=== PATIENT | female | born 2000 | race Caucasian/White ===

== ENCOUNTER 2024-02-14 18:07 | Observation (INO) | payer MEDICARE, MEDICAID, SELFPAY ==
[2024-02-14 18:14] VITALS: BP 154/98; PULSE 78; RESP 18; TEMP 37; O2SAT 95; BMI 25.7
[2024-02-14 18:20] VITALS: BP 154/98; PULSE 80; RESP 18; TEMP 37; O2SAT 95
--- NOTE | 2024-02-14 18:58 | CT_ITS ---
PROCEDURE INFORMATION: Exam: CT Abdomen And Pelvis With Contrast Exam date and time: 02/14/2024 9:52 PM Age: 23 years old Clinical indication: Other: Moderate rlq pain and vmoting 24h TECHNIQUE: Imaging protocol: Computed tomography of the abdomen and pelvis with contrast. Radiation optimization: All CT scans at this facility use at least one of these dose optimization techniques: automated exposure control; mA and/or kV adjustment per patient size (includes targeted exams where dose is matched to clinical indication); or iterative reconstruction. Contrast material: ISOVUE; Contrast volume: 75 ml; Contrast route: IV; COMPARISON: No relevant prior studies available. FINDINGS: Lungs: The visualized lung bases demonstrate no focal infiltrates. Liver: Severe diffuse hepatic steatosis is identified. Gallbladder and biliary ducts: There has been a cholecystectomy. Pancreas: Normal. No ductal dilation. Spleen: Normal. No splenomegaly. Adrenal glands: The adrenal glands appear within normal limits. Kidneys and ureters: The kidneys are normal. Stomach and bowel: Unremarkable. No obstruction. No mucosal thickening. Appendix: The appendix is distended with periappendiceal inflammation consistent with acute appendicitis. No perforation or abscess. Transverse diameter approaches 10 mm. Intraperitoneal space: Unremarkable. No free air. No significant fluid collection. Vasculature: Unremarkable. No abdominal aortic aneurysm. Lymph nodes: Reactive lymph nodes within the right lower quadrant mesentery. Urinary bladder: The bladder appears within normal limits. No wall thickening. Reproductive: There is an IUD in place. Bones/joints: Unremarkable. No acute fracture. Soft tissues: The visualize subcutaneous soft tissues and abdominal wall and flank wall appear unremarkable. IMPRESSION: 1. Acute appendicitis. 2. Severe diffuse hepatic steatosis is identified. 3. Reactive lymph nodes within the right lower quadrant mesentery. THIS REPORT CONTAINS FINDINGS THAT MAY BE CRITICAL TO PATIENT CARE. The findings were verbally communicated via telephone conference at 10:38 PM EST on 02/14/2024 with Jonathan Lomax. The findings were acknowledged and understood.
[2024-02-14 19:05] LABS: Microscopic, Urine URINE MICROSCOPIC (MICROSCOPIC)
[2024-02-14 19:10] LABS: Basophils # 0.1 K/mm3 (0-0.2); Basophils % 0.7 % (0.1-2.0); Eosinophils # 0.2 K/mm3 (0.0-0.4); Eosinophils % 1.8 % (0.1-12.0); Hematocrit 38.9 % (37.0-47.0); Hemoglobin 12.4 g/dL (12.2-16.2); Lymphocytes # 2.3 K/mm3 (0.7-4.5); Lymphocytes % 21.5 % (10-50); Mean Corpuscular HGB Conc 31.9 g/dL (31.8-35.4); Mean Corpuscular Hemoglobin 26.4 pg (27.0-31.2); Mean Corpuscular Volume 82.9 fl (81-99); Mean Platelet Volume 9.8 fl (7.4-10.4); Monocytes % 9.6 % (1.7-9.3); Neutrophils # 7.2 K/mm3 (1.8-7.8); Neutrophils % 65.9 % (37.0-80.0); Platelet Count 430 K/mm3 (142-424); Red Blood Count 4.69 M/mm3 (4.20-5.40); Red Cell Distribution Width 14.5 % (11.5-17.5); White Blood Count 10.9 K/mm3 (4.8-10.8)
[2024-02-14 19:23] LABS: Appearance,Urine CLOUDY (Clear); Blood, Urine 1+ (Negative); Color,Urine YELLOW (Yellow); Glucose,Urine (UA) Negative (Negative); Ketones,Urine TRACE (Negative); Leukocyte Esterase,Urine TRACE (Negative); Nitrate,Urine Negative (Negative); Protein,Urine Negative (Negative); Specific Gravity, Urine >= 1.030 (1.005-1.030); Urobilinogen,Urine 0.2 EU/dl (0.2)
[2024-02-14 19:37] LABS: Albumin Level 4.5 g/dl (3.5-5.0); Bilirubin,Urine 1+ (Negative); Chloride 106 mmol/L (98-107); Sodium 137 mmol/L (136-145)
[2024-02-14 19:38] LABS: Potassium 3.9 mmoL/L (3.5-5.1)
--- NOTE | 2024-02-14 19:38 | ED_ITS ---
Discharge Plan Disposition Chief Complaint: Abdominal Pain Referrals Follow up/Referrals: Fabrice Angel APRN [Primary Care Provider] - See instructions Clinical Impressions Clinical Impression: Acute appendicitis, Acute appendicitis with localized peritonitis Instructions Patient Instructions: DI for Acute Abdominal Pain Print Language Print Language: Georgian Discharge ED Provider: Jonathan Lomax General Adult HPI General Chief complaint: Abdominal Pain Stated complaint: abdominal pain Time Seen by Provider: 02/14/24 18:32 Mode of Arrival: Ambulatory Source of Information: Patient Limitations: No Limitations Description of Symptoms (Recalled from ER Triage Doc. by RN): Pt presents from [facility] via [facility] for evaluation of RLQ abd pain x 24 hours. Pt also has N/V/D History of Present Illness HPI narrative: Please note that above description of symptoms, in this electronic medical record under categorization of recalled from ER triage doctor by RN are reflective of an initial nursing assessment, however, is not reflective of my full history and physical exam that was personally taken and clarified. Consequentially, this preceding description of symptoms, which may include the patient's categorized chief complaint in the EMR, do not reflect my personal clinical impression, and the ultimate description of history of present illness and patient stated complaints should be deferred to this section of the note. Unless stated otherwise or congruent with this section of the note, additional signs, symptoms, or incongruence should be interpreted as inaccurate with my clinical impression. Related Data Allergies Allergy/AdvReac Type Severity Reaction Status Date / Time No Known Allergies Allergy Verified 02/14/24 18:43 [facility] Disclaimer: The information contained in this section may have been updated after the patient was seen, as this information can be updated by other users. Social History Smoking Status: Never smoker alcohol intake: never current occupational status: unemployed Travel in the last 8 weeks: None ROS Obtained: Yes All systems reviewed & no additional complaints except as documented Physical Exam General General appearance: alert Head Head exam: atraumatic and normocephalic Eye Eye exam: Present normal appearance, PERRL and EOMI Neck Neck exam: Present normal inspection, full ROM and trachea midline Respiratory Respiratory exam: Absent respiratory distress, wheezes, stridor, accessory muscle use or prolonged expiratory phase Cardiovascular Cardiovascular exam: Present other (Pulses equal symmetric in upper and lower extremities) Abdominal Exam Abdominal exam: Present soft, tenderness and Rovsing's sign; Absent distention, guarding, rebound, rigidity, Rizvi's sign or pulsatile mass Abdominal tenderness: Present diffuse and mild Extremities Exam Extremities exam: Absent edema Back Exam Back exam: Absent CVA tenderness (R) or CVA tenderness (L) Neurological Exam Neurological exam: Present alert, oriented X3 and CN II-XII intact; Absent motor sensory deficit Skin Skin exam: Present warm and dry; Absent diaphoresis or erythema Medical Decision Making Medical Records Medical records reviewed: Yes I reviewed the patient's medical records. Screening: Per USPSTF and CDC recommendations, given the prevalence of disease in our region, it is our hospital?s policy to screen for HIV and viral Hepatitis for all patients aged 18 and over and those with ongoing risk factors. [place] Inquiry Pt receiving controlled substance: No [place] was queried for this patient: No Vital Signs: 02/14/24 18:14 02/14/24 18:20 02/14/24 22:31 Temperature 98.6 F 98.6 F Temperature Source Oral Oral Pulse Rate 80 91 H Pulse Rate [Right] 78 Respiratory Rate 18 18 Blood Pressure 154/98 H Blood Pressure [Right Arm] 154/98 H Blood Pressure Mean [Right Arm] 116 Blood Pressure Source Automatic Cuff Blood Pressure Source [Right Arm] Automatic Cuff 02 Sat by Pulse Oximetry 95 95 100 Oxygen Delivery Method Room Air Room Air Lab Data Lab Results 02/14/24 18:16: WBC 10.9 H, RBC 4.69, Hgb 12.4, Hct 38.9, MCV 82.9, MCH 26.4 L, MCHC 31.9, RDW 14.5, Plt Count 430 H, MPV 9.8, Neut % (Auto) 65.9, Lymph % (Auto) 21.5, Lea % (Auto) 9.6 H, Eos % (Auto) 1.8, Baso % (Auto) 0.7, Neut # (Auto) 7.2, Lymph # (Auto) 2.3, Lea # (Auto) 1.0, Eos # (Auto) 0.2, Baso # (Auto) 0.1, Sodium 137, Potassium 3.9, Chloride 106, Carbon Dioxide 22, Anion Gap 12.9, BUN 8, Creatinine 0.90, Estimated Creat Clear 104, Estimated GFR 78, Est GFR ( Amer) 94, Glucose 112 H, Calcium 10.0, Total Bilirubin 0.5, AST 49 H, ALT 25, Alkaline Phosphatase 101, Total Protein 7.7, Albumin 4.5, Globulin 3.2, Albumin/Globulin Ratio 1.4, Lipase 74, HCG, Quant < 2, Urine Color Yellow, Urine Appearance Cloudy, Urine pH 6.0, Ur Specific [place] >= 1.030, Urine Protein Negative, Urine Glucose (UA) Negative, Urine Ketones Trace, Urine Blood 1+ A, Urine Nitrate Negative, Urine Bilirubin 1+ A, Urine Urobilinogen 0.2, Ur Leukocyte Esterase Trace, Urine RBC None, Urine WBC 5-10, Ur Squamous Epith Cells 20-50, Calcium Oxalate Crystal Trace, Urine Bacteria 3+ 02/14/24 20:16: Lactate 0.9 02/14/24 18:16 02/14/24 18:16 Orders (Tests/Meds): ED MEDICATIONS Discontinued Medications Generic Name Dose Route Start Last Admin Trade Name Freq PRN Reason Stop Dose Admin Cefdinir 300 mg 02/14/24 20:35 02/14/24 20:38 Cefdinir 300mg Capsule PO 02/14/24 20:36 300 mg ONCE ONE Administration Sodium Chloride 1,000 mls @ 999 mls/hr 02/14/24 18:58 02/14/24 19:49 Sod Chlor 0.9% 1000ml Bag IV 02/14/24 19:58 999 mls/hr .Q1H1M ONE Administration Ampicillin Sodium/Sulbactam 100 mls @ 200 mls/hr 02/14/24 22:12 02/14/24 22:16 Sodium 3 gm/ Sodium Chloride IV 02/14/24 22:13 200 mls/hr ONCE ONE Administration Iopamidol 75 ml 02/14/24 21:51 02/14/24 21:52 Iopamidol-370 (76%);100ml Bottle IV 02/14/24 21:52 75 ml ONCE ONE Administration Ketorolac Tromethamine 15 mg 02/14/24 18:58 02/14/24 19:48 Ketorolac 30mg/Ml Vial IV 02/14/24 18:59 15 mg ONCE ONE Administration Ondansetron HCl 4 mg 02/14/24 18:58 02/14/24 19:49 Ondansetron 4mg/2ml Vial IV 02/14/24 18:59 4 mg ONCE ONE Administration Sodium Chloride 10 ml 02/14/24 21:51 02/14/24 21:52 Sodium Chloride 0.9% 10ml Syr (Rad Only) IV 02/14/24 21:52 10 ml ONCE ONE Administration ORDERS Category Date Time Status CT abdomen pelvis w con Stat Cat Scan 02/14/24 18:58 Taken Complete Blood Count Auto Diff Stat Lab 02/14/24 18:16 Completed Comprehensive Metabolic Panel Stat Lab 02/14/24 18:16 Completed HCG,Quantitative Stat Lab 02/14/24 18:16 Completed Lactic Acid Stat Lab 02/14/24 20:16 Completed Lipase Stat Lab 02/14/24 18:16 Completed Urinalysis and Microscopic Stat Lab 02/14/24 18:16 Completed Urine Culture Stat Micro 02/14/24 18:16 Received Medical Decision Narrative: 23-year-old female presenting with abdominal pain. She has a history of IBS, GERD, IUD in place. Patient states abdominal pain started last night, 02/12. Since that time she has had nonbloody, nonbilious vomiting and nonbloody diarrhea. Multiple episodes. No fevers or chills. Pain is moderate to severe in intensity, right lower quadrant, does not radiate. Has not taken any meds for it. She lives at a assisted living facility and does not have a prescription for it, so not allowed to take anything.. History was obtained via conversation with patient. On arrival, patient hemodynamically stable, alert, oriented x4, appropriate, GCS 15, moving all extremities spontaneously, pupils equal and reactive to light. Full physical exam performed and significant for obese female no acute distress. Speaking in full sentences. Abdomen is soft, nondistended, but appears to be moderately tender. It is diffuse. No evidence of peritonitis. Tenderness in her right lower quadrant when pushing on her left lower quadrant. No flank tenderness. No overlying skin changes or outward signs of abnormality. Differential includes PUD, gastritis, enteritis, gastroenteritis, pancreatitis, SBO, colitis, diverticulitis, nephrolithiasis, UTI, , cholecystitis, choledocholithiasis, appendicitis, hepatitis, torsion, aortic pathology, mesenteric ischemia among others. Patient was given Toradol and Zofran, fluids for symptomatic management and correction of underlying abnormalities. Workup independently interpreted and significant for white count with neutrophilia. Chemistry nonactionable with negative lactate, negative lipase and negative hCG. On independent interpretation of imaging, patient has uncomplicated 13 mm appendicitis with fat stranding. No appendicolith, perforation, abscess or other complication. See radiology read for full review of final results. [facility] Recommended admission, antibiotics, surgery tomorrow and being n.p.o. at midnight. Hospital medicine was contacted and case was discussed at length, graciously excepted admission. On reevaluation, patient having no pain at this time. Because patient high risk for clinical decompensation, deemed appropriate for inpatient admission. Results were relayed to patient who voiced understanding and patient was agreeable to inpatient admission and management. Patient was admitted to the hospital for further definitive management. Tier Lift Operator disclaimer Much of this encounter note is an electronic podopediatrician spoken language to printed text. Electronic podopediatrician of the spoken language may permit errors. Although I have reviewed the note, some errors may still exist. Critical Care Critical Care Time Critical Care Time: Yes (gi, abdominal) Attestation: On 02/14/24, the high probability of a clinically significant, sudden or life threatening deterioration of the following system(s) required my full and direct attention, intervention and personal management. The time I documented below is in addition to time spent performing reported procedures but includes the following listed in this critical care notation. Total Time Total Critical Care Time: 35
[2024-02-14 19:40] LABS: Alanine Aminotransferase 25 U/L (12-78); Albumin/Globulin Ratio 1.4 (1.1-1.8); Alkaline Phosphatase 101 U/L (38-126); Anion Gap 12.9 mEq/L (5-15); Aspartate Amino Transferase 49 U/L (14-36); Bilirubin,Total 0.5 mg/dl (0.2-1.3); Blood Urea Nitrogen 8 mg/dl (7-17); Carbon Dioxide 22 mmol/L (22.0-30.0); Creatinine Clearance Estimated 104 mL/min (50-200); Estimated Glomerular Filt Rate 78 ml/min (>60); GFR (African American) 94 ML/MIN (>60); Globulin 3.2 g/dL (1.3-3.2); Lipase 74 U/L (23-300); Total Protein,Serum 7.7 g/dl (6.3-8.2)
[2024-02-14 19:41] LABS: Glucose 112 mg/dl (74-100)
[2024-02-14] MEDS: KETOROLAC 30MG/ML VIAL 15 MG IV ×2 (19:48→23:44)
[2024-02-14] MEDS: 0.9 % SODIUM CHLORIDE 1000ML 1,000 ML 999 ML IV (19:49)
[2024-02-14] MEDS: ONDANSETRON 4MG/2ML VIAL 4 MG IV ×2 (19:49→23:45)
[2024-02-14 20:31] LABS: Bacteria,Urine 3+ /lpf; Calcium Oxalate Crystals,Urine Trace /lpf; Squamous Epithelial Cell,Urine 20-50 #/hpf (0-5)
[2024-02-14] MEDS: CEFDINIR 300MG CAPSULE 300 MG PO (20:38)
[2024-02-14 20:42] LABS: Lactic Acid 0.9 mmol/L (0.7-2.1)
[2024-02-14 21:20] LABS: HCG,Quantitative < 2 mIU/ml (0-5.42)
[2024-02-14] MEDS: IOPAMIDOL-370 (76%);100ML BOTTLE 75 ML IV (21:52)
[2024-02-14] MEDS: SODIUM CHLORIDE 0.9% 10ML SYR (RAD ONLY) 10 ML IV (21:52)
[2024-02-14] MEDS: AMPICILLIN/SULBACTAM 3 GM in 0.9 % SODIUM CHLORIDE 100 ML IV (22:16)
[2024-02-14 22:31] VITALS: PULSE 91; O2SAT 100
[2024-02-14 22:52] VITALS: BP 124/88; PULSE 75; RESP 18; TEMP 36.6; O2SAT 96
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
--- NOTE | 2024-02-14 23:17 | PC.NURSE ---
Patient arrived to floor via wheelchair from ED at 23:12.
[2024-02-14 23:18] VITALS: BP 124/88; PULSE 90; RESP 16; O2SAT 100
[2024-02-14] MEDS: 0.9 % SODIUM CHLORIDE 1000ML 1,000 ML 125 ML IV (23:44)
[2024-02-14] MEDS: FAMOTIDINE 20MG/2ML VIAL 20 MG IV (23:44)
[2024-02-15] VITALS (21 sets, daily range): BP systolic 109–166; BP diastolic 53–105; PULSE 63–114; RESP 16–20; TEMP 36.3–43; O2SAT 91–100; BMI 45.8
[2024-02-15] MEDS: PROMETHAZINE HCL 25MG/ML 1ML VIAL 12.5 MG IV ×2 (02:00→15:07)
--- NOTE | 2024-02-15 05:33 | PC.NURSE ---
Pt A&OX4 and has tolerated room air. She has complained of abdominal pain and nausea and was medicated per APR. She has ambulated around the room independently. Plan for surgery today. Has remained npo since midnight. No complaints at this time, call light within reach.
[2024-02-15] MEDS: KETOROLAC 30MG/ML VIAL 15 MG IV (06:09)
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
[2024-02-15 06:57] LABS: Basophils # 0.1 K/mm3 (0-0.2); Basophils % 0.7 % (0.1-2.0); Eosinophils # 0.3 K/mm3 (0.0-0.4); Eosinophils % 3.4 % (0.1-12.0); Hematocrit 32.8 % (37.0-47.0); Lymphocytes # 2.8 K/mm3 (0.7-4.5); Lymphocytes % 32.4 % (10-50); Mean Corpuscular Hemoglobin 26.9 pg (27.0-31.2); Mean Corpuscular Volume 83.9 fl (81-99); Mean Platelet Volume 9.7 fl (7.4-10.4); Monocytes # 0.9 K/mm3 (0.1-1.0); Monocytes % 10.3 % (1.7-9.3); Neutrophils # 4.5 K/mm3 (1.8-7.8); Neutrophils % 52.5 % (37.0-80.0); Platelet Count 312 K/mm3 (142-424); Red Blood Count 3.91 M/mm3 (4.20-5.40); Red Cell Distribution Width 14.6 % (11.5-17.5); White Blood Count 8.5 K/mm3 (4.8-10.8)
[2024-02-15 07:16] LABS: Albumin Level 3.5 g/dl (3.5-5.0); Chloride 109 mmol/L (98-107); Potassium 3.5 mmoL/L (3.5-5.1); Sodium 137 mmol/L (136-145)
[2024-02-15 07:19] LABS: Alanine Aminotransferase 18 U/L (12-78); Albumin/Globulin Ratio 1.3 (1.1-1.8); Alkaline Phosphatase 81 U/L (38-126); Anion Gap 9.5 mEq/L (5-15); Aspartate Amino Transferase 40 U/L (14-36); Bilirubin,Total 0.4 mg/dl (0.2-1.3); Blood Urea Nitrogen 6 mg/dl (7-17); Calcium 8.6 mg/dl (8.4-10.2); Carbon Dioxide 22 mmol/L (22.0-30.0); Creatinine Clearance Estimated 108 mL/min (50-200); Estimated Glomerular Filt Rate 104 ml/min (>60); GFR (African American) 125 ML/MIN (>60); Globulin 2.6 g/dL (1.3-3.2); Glucose 82 mg/dl (74-100); Total Protein,Serum 6.1 g/dl (6.3-8.2)
[2024-02-15 07:22] LABS: Hemoglobin 10.5 g/dL (12.2-16.2)
[2024-02-15] MEDS: LACTATED RINGERS 1000ML 1,000 ML 25 ML IV (07:59)
[2024-02-15] MEDS: CEFTRIAXONE SODIUM 2 GM in 0.9 % SODIUM CHLORIDE 100 ML IV (08:20)
[2024-02-15] MEDS: METRONIDAZ/SOD CHL 500 MG/100 ML PIGGYBACK 100 MG IV (08:20)
--- NOTE | 2024-02-15 08:26 | P.PNANES_ITS ---
[facility] Disclaimer: The information contained in this section may have been updated after the patient was seen, as this information can be updated by other users. Medical History (Updated 02/15/24 @ 06:45 by Segun Alvarado MD) Autism Morbid obesity Prediabetes Sleep apnea GERD (gastroesophageal reflux disease) Irritable bowel syndrome PTSD (post-traumatic stress disorder) Social History (Updated 02/14/24 @ 23:12 by Hammad Salomon APRN) Smoking Status: Never smoker alcohol intake: never substance use type: other details: Very rarely current occupational status: unemployed Travel in the last 8 weeks: None marital status: single physical activity: none Have you lived/traveled outside US in past 30 days?: No Contact w/someone who lives/traveled outside US past 30 days?: No Exposure to someone with infectious disease in past 14 days?: No Do you have a fever (greater than 100.4 F or 38 C)?: No Have you tested positive for COVID-19: No Exposed to someone with COVID-19 in past 14 days?: No Do you have a sore throat?: No Do you have a cough?: No Do you have any weakness?: No Do you have any diarrhea?: No Are you experiencing any unusual bleeding?: No Do you have any muscle aches/pain?: No Do you have any abdominal pain?: Yes Are you experiencing loss of taste or smell?: No [facility] Anesthesia Checklist Patient Identification Patient Identification: Arm Band Structural Data Admitted From: Inpatient Planned Operative Procedure/s: Laparoscopic Appendectomy Verified Documents: Surgical Consent and History and Physical NPO Status Verified Time NPO: 00:00 Additional verifications Anesthesia Reactions: No Airway Assessment Mallampati Score:: Class II C-Spine Mobility Assessed: Yes TMJ Mobility Assessed: Yes Dentition: Good Dentition Neurological Assessment Level of Consciousness: Awake, Alert and Appropriate Anesthesia Plan Anesthesia Risk discussed: Yes Anesthesia Plan: Verified ASA Class: III Anesthesia Type: General
[2024-02-15] MEDS: LIDOCAINE 1% 20ML MDV 20 ML (08:52)
[2024-02-15] MEDS: SODIUM CHLORIDE IRRIG SOLUTION 3,000 ML 3000 ML IR (08:53)
--- NOTE | 2024-02-15 09:21 | SW/DCPLANNER ---
Addendum entered by [facility] 02/15/24 14:11: I have updated Imelda/Lilly that medications will be sent to pharmacy today for expected discharge date of tomorrow. Addendum entered by [facility] 02/15/24 11:52: Imelda chand/ Nicholas Moss [phone] Addendum entered by [facility] 02/15/24 11:00: Per Imelda if patient is medically stable for discharge tomorrow someone at [facility] will be able to transport. I have updated MD and nursing staff. Original Note: This patient currently resides at [facility]. I have updated Lilly/Imelda chand/ Nicholas Moss that patient will have surgery today.
--- NOTE | 2024-02-15 09:38 | EXP.OP.NOTE ---
Date of procedure: 02/15/24 Pre-op Diagnosis:: Appendicitis Post-op Diagnosis:: Same Procedure performed:: Laparoscopic appendectomy Surgeon:: Segun Alvarado MD Anesthesia: GETA Estimated blood loss (mL): 15 Operative findings:: Severe inflammation of mid/distal appendix Patchy suppurative changes along mid/distal appendix Partially retrocecal appendix with dense adhesions to cecum Operative note:: After informed consent was obtained the patient was taken to the operating room and placed in the supine position. General anesthesia was induced and her abdomen was prepped and draped in a sterile fashion. After infiltration with local anesthetic a supraumbilical incision was made. A Veress needle was placed in position. The abdomen was insufflated. A 12 mm optical trocar was placed in position. Under direct visualization a 5 mm trocar was placed in the suprapubic position and an additional 5 mm trocar was placed in the left lower quadrant. The appendix was severely inflamed with patchy suppurative changes noted. The mid/distal appendix in particular was most significantly affected. This portion of the appendix was somewhat retrocecal with dense cecal adhesions. No obvious perforation or abscess noted. The appendix was carefully elevated. The mesoappendix and surrounding adhesions were transected with harmonic brook. The dissection was maintained at the appendiceal serosal margin to decrease likelihood of injury to surrounding tissue. A small point of sanguinous ooze of the mid mesoappendix was controlled with a single clip. The appendiceal base was then transected utilizing the Endopath 45 stapling device. The appendix was placed in a retrieval bag and removed through the supraumbilical trocar site. The right lower quadrant was thoroughly irrigated. No obvious bleeding or sign of injury was noted. No pockets of purulence were seen. Pneumoperitoneum was released as the trocars were removed. Fascia at the supraumbilical trocar site was reapproximated with interrupted 0 Ethibond. All wounds were irrigated and skin was closed with 4-0 Monocryl in an interrupted mattress fashion to facilitate hemostasis. Dressings were applied and the patient was transferred to recovery in stable condition after extubation. Condition: stable Disposition: PACU Specimens:: Appendix Complications:: No immediate
--- NOTE | 2024-02-15 09:46 | P.PNANES_ITS ---
[facility] Anesthesia Record Part I Anesthesia Record I Intake, IV Amount: 1,100 Hydration: Adequate Estimated blood loss (mL): 10 Urine output (mL): 100 Blood Products used (#): none Blood Pressure: 148/76 SaO2: 97 Pulse Rate: 87 Airway Patency: Patent Respiratory Rate: 16 Temperature: 97.3 F Patient is:: Drowsy and Stable Stable to PACU at:: 09:55
[2024-02-15] MEDS: MORPHINE 2MG/ML SYRINGE 2 MG IV (10:05)
[2024-02-15] MEDS: ONDANSETRON 4MG/2ML VIAL 4 MG IV (10:10)
[2024-02-15] MEDS: MEPERIDINE 25MG/ML 1ML SYRINGE 25 MG IV (10:12)
[2024-02-15] MEDS: HYDROMORPHONE 2MG/ML SYRINGE 0.5 MG IV ×3 (10:13→10:30)
--- NOTE | 2024-02-15 11:51 | P.PN_ITS ---
Subjective *Date: 02/15/24 *Time: 15:01 Interval history: Had a bowel movement after surgery. Rounded on after her appendectomy. Feeling quite weak. Slowing abdominal pain. Has not eaten anything yet. Stable on room air. Medical Exam Vital signs and Labs for Last 24 Hours: Vital Signs Temp Pulse Pulse Resp BP BP Pulse Ox 02/15/24 11:00 02/15/24 10:25 97.3 F L 83 150/88 H 100 02/15/24 10:15 97.3 F L 85 135/86 100 02/15/24 10:05 97.3 F L 83 130/85 97 02/15/24 09:55 97.3 F L 85 133/81 98 02/15/24 09:47 97.3 F L 87 16 148/76 H 02/15/24 09:45 97.3 F L 89 148/76 H 91 L 02/15/24 08:00 02/15/24 07:00 02/15/24 05:00 02/15/24 04:00 97.6 F 63 16 109/53 L 97 02/15/24 03:00 02/15/24 01:00 02/14/24 23:18 90 16 124/88 100 02/14/24 23:00 02/14/24 22:52 97.9 F 75 18 124/88 02/14/24 22:31 91 H 100 02/14/24 18:20 98.6 F 80 18 154/98 H 95 02/14/24 18:14 98.6 F 78 18 154/98 H 95 O2 Del Method O2 Flow Rate 02/15/24 11:00 Room Air 02/15/24 10:25 Room Air 02/15/24 10:15 Room Air 02/15/24 10:05 Nasal Cannula 2 02/15/24 09:55 Nasal Cannula 2 02/15/24 09:47 02/15/24 09:45 Nasal Cannula 4 02/15/24 08:00 Room Air 02/15/24 07:00 Room Air 02/15/24 05:00 Room Air 02/15/24 04:00 Room Air 02/15/24 03:00 Room Air 02/15/24 01:00 Room Air 02/14/24 23:18 Room Air 02/14/24 23:00 Room Air 02/14/24 22:52 Room Air 02/14/24 22:31 02/14/24 18:20 Room Air 02/14/24 18:14 Room Air Intake and Output 02/14/24 02/15/24 02/15/24 23:59 07:59 15:59 Intake Total 340 / 1440 1100 / 1440 Output Total 0 / 0 0 / 0 Balance 0 / 340 340 / 1440 1100 / 1440 Intake: Intake, Oral Amount 40 / 40 Intake, Total IV Amount 300 / 1400 1100 / 1400 0.9 % Sodium Chloride 1000ML 1, 300 / 300 000 ml @ 125 mls/hr IV .Q8H [facility] Rx#:[id number] Output: Output, Urine Amount 0 / 0 0 / 0 Other: Number of Unmeasured Voids 1 1 Weight 68.039 kg 121.88 kg Patient Weight 02/15/24 23:59 Weight 121.88 kg Laboratory Results - last 24 hr 02/14/24 18:16: WBC 10.9 H, RBC 4.69, Hgb 12.4, Hct 38.9, MCV 82.9, MCH 26.4 L, MCHC 31.9, RDW 14.5, Plt Count 430 H, MPV 9.8, Neut % (Auto) 65.9, Lymph % (Auto) 21.5, [place] % (Auto) 9.6 H, Eos % (Auto) 1.8, Baso % (Auto) 0.7, Neut # (Auto) 7.2, Lymph # (Auto) 2.3, [place] # (Auto) 1.0, Eos # (Auto) 0.2, Baso # (Auto) 0.1, Sodium 137, Potassium 3.9, Chloride 106, Carbon Dioxide 22, Anion Gap 12.9, BUN 8, Creatinine 0.90, Estimated Creat Clear 104, Estimated GFR 78, Est GFR ( Amer) 94, Glucose 112 H, Calcium 10.0, Total Bilirubin 0.5, AST 49 H, ALT 25, Alkaline Phosphatase 101, Total Protein 7.7, Albumin 4.5, Globulin 3.2, Albumin/Globulin Ratio 1.4, Lipase 74, HCG, Quant < 2, Urine Color Yellow, Urine Appearance Cloudy, Urine pH 6.0, Ur Specific [place] >= 1.030, Urine Protein Negative, Urine Glucose (UA) Negative, Urine Ketones Trace, Urine Blood 1+ A, Urine Nitrate Negative, Urine Bilirubin 1+ A, Urine Urobilinogen 0.2, Ur Leukocyte Esterase Trace, Urine RBC None, Urine WBC 5-10, Ur Squamous Epith Cells 20-50, Calcium Oxalate Crystal Trace, Urine Bacteria 3+ 02/14/24 20:16: Lactate 0.9 02/15/24 05:57: WBC 8.5, RBC 3.91 L, Hgb 10.5 L D, Hct 32.8 L, MCV 83.9, MCH 26.9 L, MCHC 32.0, RDW 14.6, Plt Count 312 D, MPV 9.7, Neut % (Auto) 52.5, Lymph % (Auto) 32.4, [place] % (Auto) 10.3 H, Eos % (Auto) 3.4, Baso % (Auto) 0.7, Neut # (Auto) 4.5, Lymph # (Auto) 2.8, [place] # (Auto) 0.9, Eos # (Auto) 0.3, Baso # (Auto) 0.1, Sodium 137, Potassium 3.5, Chloride 109 H, Carbon Dioxide 22, Anion Gap 9.5, BUN 6 L, Creatinine 0.70 D, Estimated Creat Clear 108, Estimated GFR 104, Est GFR ( Amer) 125 D, Glucose 82 D, Calcium 8.6, Total Bilirubin 0.4, AST 40 H, ALT 18 D, Alkaline Phosphatase 81, Total Protein 6.1 L , Albumin 3.5 D, Globulin 2.6, Albumin/Globulin Ratio 1.3 I & O for Labs for Last 24 Hours: Intake & Output 02/12/24 02/13/24 02/14/24 02/15/24 23:59 23:59 23:59 23:59 Intake Total 1440 / 1440 Output Total 0 / 0 0 / 0 Balance 0 / 340 1440 / 1440 Weight 68.039 kg 121.88 kg Constitutional: Present no acute distress, morbidly obese and cooperative Head: Present atraumatic and normocephalic Respiratory: Present normal respiratory effort; Absent rhonchi, wheezes or crackles Cardiac: Present Reg Rate and Rhythm GI: Present soft, tenderness (Around surgical site, right lower quadrant) and normal bowel sounds; Absent distention Extremities: Present normal inspection and full ROM Skin: Present intact; Absent erythema Neuro: Present Grossly Intact, alert, awake, oriented x 3 and moves all extremities Assessment and Plan *Assessment and plan (1) Acute appendicitis with localized peritonitis: Status: Acute Qualifiers: Appendicitis abscess presence: without abscess Appendicitis gangrene presence: unspecified whether gangrene present Appendicitis perforation presence: without perforation Qualified Code(s): K35.30 - Acute appendicitis with localized peritonitis, without perforation or gangrene Category: Medical Code(s): K35.30 - Acute appendicitis with localized peritonitis, without perforation or gangrene (2) Autism: Status: Acute Category: Medical Code(s): F84.0 - Autistic disorder (3) Morbid obesity: Status: Acute Category: Medical Code(s): E66.01 - Morbid (severe) obesity due to excess calories (4) Prediabetes: Status: Acute Category: Medical Code(s): R73.03 - Prediabetes Plan 23-year-old female who presented with abdominal pain. Found to have appendicitis on imaging. Admitted to medicine for further management. Surgery consulted. Taken for surgery this morning. Successful appendectomy. As she lives at a personal senior living, will observe overnight make sure she tolerates p.o. intake, pain control, ambulation and bowel movements. Problems addressed as follows: Acute appendicitis -Empiric antibiotics while admitted with ceftriaxone 2 g this morning. Transition to Augmentin tomorrow morning. Will complete short empiric course of Augmentin given suppurative nature of appendix on eval during surgery. -Discussed case with surgeon, uncomplicated appendectomy. Empiric antibiotics as above. Recommend advancing diet as tolerated. - Morphine IV 2 mg as needed for pain control. Toradol 15 mg IV every 6 hours. Monitor for toxicity or side effects Autism PTSD -Continue home meds for chronic conditions including hydroxyzine 25 mg nightly, Lamictal 200 mg daily, melatonin 5 mg nightly -Continue Zoloft 50 mg daily Prediabetes: Continue 500 mg metformin twice daily Obesity complicates all aspects of her care Full code Regular diet, advance as tolerated
--- NOTE | 2024-02-15 13:40 | P.CONPHA_ITS ---
Pharmacy Intervention Comments: MEDICATION RECONCILIATION COMPLETED ON PATIENT USING MAR FROM HALF-WAY. -GEOVANY MARTELL, BLANCHED
--- NOTE | 2024-02-15 13:40 | HMH.PHAINT1 ---
Pharmacy Intervention Comments: MEDICATION RECONCILIATION COMPLETED ON PATIENT USING MAR FROM [facility]ARE HOME. -GEOVANY MARTELL, BLANCHED
[2024-02-15 14:41] LABS: POC Glucose,Bedside 109 (70-110)
[2024-02-15] MEDS: HYDROCODONE/APAP 5/325 MG TABLET 1 TAB PO ×2 (14:54→20:53)
[2024-02-15] MEDS: SODIUM CHLORIDE 0.9% 25ML BAG 25 ML IV (15:08)
[2024-02-15] MEDS: METFORMIN 500MG TABLET 500 MG PO (17:33)
[2024-02-15] MEDS: 0.9 % SODIUM CHLORIDE 1000ML 1,000 ML 125 ML IV (17:33)
--- NOTE | 2024-02-15 18:11 | PC.NURSE ---
Pt alert and oriented x4. Pt had a lap appendectomy this morning. She has 3 lap sites with dressings that C/D/I. She has c/o pain and nausea this shift and has been medicated per MAR. She is on a full liquid diet and has been drinking most of what is on her tray. Pt ambulating to and from bathroom with standby assist. Pt has been resting comfortably in bed most of shift. bed alarm on and call light is in reach.
[2024-02-15] MEDS: FAMOTIDINE 20MG/2ML VIAL 20 MG IV (20:52)
[2024-02-15] MEDS: METOPROLOL TARTRATE 25MG TABLET 12.5 MG PO (20:52)
[2024-02-15] MEDS: SODIUM CHLORIDE 0.9% 10ML VIAL 8 ML IV (20:52)
--- NOTE | 2024-02-15 21:08 | PC.NURSE ---
Patient requested to wait to take her melatonin and hydroxyzine this shift because the medications make her very drowsy. She stated that she wanted to stay up for the New Year's celebration with her friend at the bedside. Patient is agreeable to take melatonin and hydroxyzine at around midnight.
--- NOTE | 2024-02-15 21:21 | PC.NURSE ---
At this time, the patient was complaining of having a scratchy throat and requested for something for throat relief. Aime MACK was paged for new orders.
[2024-02-15] MEDS: PHENOL THROAT SPRAY 177 ML BOTTLE MM (21:38)
[2024-02-16] VITALS: BP 137/82; PULSE 92; RESP 16; TEMP 36.7
[2024-02-16] MEDS: MORPHINE 2MG/ML SYRINGE 2 MG IV ×3 (00:18→04:25)
[2024-02-16] MEDS: MELATONIN 5MG TABLET 5 MG PO (00:20)
[2024-02-16] MEDS: hydrOXYzine pamoate 25MG CAPSULE 25 MG PO (00:20)
[2024-02-16] MEDS: 0.9 % SODIUM CHLORIDE 1000ML 1,000 ML 125 ML IV ×2 (00:30→08:37)
[2024-02-16] MEDS: HYDROCODONE/APAP 5/325 MG TABLET 1 TAB PO ×2 (03:31→12:56)
[2024-02-16 04:00] VITALS: BP 117/82; PULSE 78; RESP 18; TEMP 36.7; O2SAT 96; BMI 47.5
--- NOTE | 2024-02-16 04:51 | PC.NURSE ---
Patient is alert and oriented x4. Patient was observed to be awake for nearly the whole shift, primarily due to her reports of consistent abdominal pain. She stated that her pain is bearable and eases while she is still and resting, but it increases tremendously during any kind of movement (coughing, leaning forward/backward, talking, walking, and laughing). Patient was given a pillow this shift to splint her abdomen; education was provided. Dressing is clean, dry, and intact thus far. Patient's pain has been consecutively treated per MAR with IV morphine and PO [place]. She stated that IV toradol does not touch her pain and that the IV morphine seemed to relieve her pain the best, even for a short time. Scheduled medications were given as accordingly per MAR (also see prior note). Normal saline is infusing at 125 mL/hr. She has been ambulating in room/to bathroom with standby assistance; she tolerates ambulation fairly, but guarding was noticed. She has not had any complaints of nausea or vomiting this shift. Vital signs have been stable; however, during vital sign assessments prior to 04:00, she had elevated heart rates. Upon auscultation of her heart, tachycardia could be heard as well. Lung and bowel auscultation was within normal findings. She has not had a bowel movement this shift. At this time, the patient is resting in bed using her personal phone. She has expressed concerns for anticipated discharge post-surgery during this shift. Call light within reach.
--- NOTE | 2024-02-16 06:05 | PC.NURSE ---
Checked on the patient at this time to find her very tearful and complaining of very severe abdominal pain (10 out of 10). She stated that the most severe point was primarily in the middle of her abdomen. She described it as sharp, consistent, and stabbing. Incisions/dressings were inspected as well; no signs of bleeding or drainage was present this morning. Abdomen soft but very tender. Patient continues to guard. Sites remain clean, dry, and intact thus far. [place] and morphine were alternated throughout the shift per MAR; from beginning of the shift to now, it has appeared that the patient's pain reports have trended to be getting worse. Aime MACK was paged at this time for new orders. He stated that he will come up with a new order in a few minutes after admissions.
[2024-02-16] MEDS: HYDROMORPHONE 2MG/ML SYRINGE 1 MG IV (06:20)
[2024-02-16 07:02] LABS: Basophils # 0.1 K/mm3 (0-0.2); Basophils % 0.7 % (0.1-2.0); Eosinophils # 0.1 K/mm3 (0.0-0.4); Eosinophils % 1.2 % (0.1-12.0); Hematocrit 32.7 % (37.0-47.0); Hemoglobin 10.3 g/dL (12.2-16.2); Lymphocytes # 3.1 K/mm3 (0.7-4.5); Lymphocytes % 29.4 % (10-50); Mean Corpuscular HGB Conc 31.5 g/dL (31.8-35.4); Mean Corpuscular Hemoglobin 26.1 pg (27.0-31.2); Mean Platelet Volume 9.7 fl (7.4-10.4); Monocytes # 0.9 K/mm3 (0.1-1.0); Monocytes % 8.8 % (1.7-9.3); Neutrophils # 6.4 K/mm3 (1.8-7.8); Neutrophils % 59.4 % (37.0-80.0); Platelet Count 355 K/mm3 (142-424); Red Blood Count 3.94 M/mm3 (4.20-5.40); Red Cell Distribution Width 14.4 % (11.5-17.5); White Blood Count 10.7 K/mm3 (4.8-10.8)
[2024-02-16 07:12] LABS: Alanine Aminotransferase 27 U/L (12-78); Albumin Level 3.8 g/dl (3.5-5.0); Albumin/Globulin Ratio 1.5 (1.1-1.8); Alkaline Phosphatase 97 U/L (38-126); Anion Gap 10.4 mEq/L (5-15); Aspartate Amino Transferase 88 U/L (14-36); Bilirubin,Total 0.7 mg/dl (0.2-1.3); Calcium 9.1 mg/dl (8.4-10.2); Carbon Dioxide 25 mmol/L (22.0-30.0); Chloride 104 mmol/L (98-107); Creatinine Clearance Estimated 126 mL/min (50-200); Estimated Glomerular Filt Rate 124 ml/min (>60); GFR (African American) 150 ML/MIN (>60); Globulin 2.6 g/dL (1.3-3.2); Glucose 92 mg/dl (74-100); Magnesium 1.6 mg/dl (1.6-2.3); Potassium 3.4 mmoL/L (3.5-5.1); Sodium 136 mmol/L (136-145); Total Protein,Serum 6.4 g/dl (6.3-8.2)
[2024-02-16 07:59] VITALS: BP 133/86; PULSE 97; RESP 18; TEMP 36.9; O2SAT 95
[2024-02-16 08:00] VITALS: PULSE 97
[2024-02-16] MEDS: FAMOTIDINE 20MG/2ML VIAL 20 MG IV (08:12)
[2024-02-16] MEDS: SODIUM CHLORIDE 0.9% 10ML VIAL 8 ML IV (08:12)
[2024-02-16] MEDS: METOPROLOL TARTRATE 25MG TABLET 12.5 MG PO (08:13)
[2024-02-16] MEDS: METFORMIN 500MG TABLET 500 MG PO (08:13)
[2024-02-16] MEDS: SERTRALINE 50MG TABLET 50 MG PO (08:13)
[2024-02-16] MEDS: lamoTRIgine 100MG TABLET 200 MG PO (08:13)
[2024-02-16] MEDS: AMOXICILLIN/POT CLAVULAN 500MG TABLET 1 EACH PO ×2 (08:13→12:10)
[2024-02-16 08:16] LABS: Blood Urea Nitrogen < 2 mg/dl (7-17)
--- NOTE | 2024-02-16 10:17 | EXP.SURG.PN ---
Subjective Patient reports: no new complaints and still having pain Exam Data for Last 24 hours Vital signs and Labs for Last 24 Hours: Temp Pulse Resp BP Pulse Ox O2 Del Method O2 Flow Rate 98.4 F 97 H 18 133/86 95 Room Air 2 02/16/24 07:59 02/16/24 08:00 02/16/24 07:59 02/16/24 07:59 02/16/24 07:59 02/16/24 09:00 02/15/24 10:05 Laboratory Results - last 24 hr 02/14/24 18:16: Urine Color Yellow, Urine Appearance Cloudy, Urine pH 6.0, Ur Specific [place] >= 1.030, Urine Protein Negative, Urine Glucose (UA) Negative, Urine Ketones Trace, Urine Blood 1+ A, Urine Nitrate Negative, Urine Bilirubin 1+ A, Urine Urobilinogen 0.2, Ur Leukocyte Esterase Trace, Urine RBC None, Urine WBC 5-10, Ur Squamous Epith Cells 20-50, Calcium Oxalate Crystal Trace, Urine Bacteria 3+ 02/15/24 14:31: POC Glucose 109 02/16/24 06:32: WBC 10.7 D, RBC 3.94 L, Hgb 10.3 L, Hct 32.7 L, MCV 83.0, MCH 26.1 L, MCHC 31.5 L, RDW 14.4, Plt Count 355, MPV 9.7, Neut % (Auto) 59.4, Lymph % (Auto) 29.4, [place] % (Auto) 8.8, Eos % (Auto) 1.2, Baso % (Auto) 0.7, Neut # (Auto) 6.4, Lymph # (Auto) 3.1, [place] # (Auto) 0.9, Eos # (Auto) 0.1, Baso # (Auto) 0.1, Sodium 136, Potassium 3.4 L, Chloride 104, Carbon Dioxide 25, Anion Gap 10.4, BUN < 2 L D, Creatinine 0.60, Estimated Creat Clear 126, Estimated GFR 124, Est GFR ( Amer) 150, Glucose 92, Calcium 9.1, Magnesium 1.6, Total Bilirubin 0.7, AST 88 H D, ALT 27 D, Alkaline Phosphatase 97, Total Protein 6.4, Albumin 3.8, Globulin 2.6, Albumin/Globulin Ratio 1.5 I & O for Last 24 hours: Intake & Output 02/13/24 02/14/24 02/15/24 02/16/24 11:59 11:59 11:59 11:59 Intake Total 1440 / 1440 2117 Output Total 0 / 0 0 / 0 Balance 1440 / 1440 2117 Weight 268 lb 11.2 oz 278 lb 11.2 oz Microbiology Reports for the Last 24 Hours: Microbiology 02/14/24 18:16 Urine,Clean Catch Urine Culture - Preliminary Gram Negative Rods Constitutional Constitutional: no acute distress *Routine Respiratory Exam Respiratory: Absent respiratory distress *Routine Cardiovascular Exam Cardiovascular: Absent tachycardia *Routine Abdominal Exam Comments: Dressings intact. No cellulitis. Progress Note: A&P Assessment and plan (1) Acute appendicitis with localized peritonitis: Status: Acute Assessment and plan: Overall, doing fairly well postoperative day 1 status post laparoscopic appendectomy. Okay from surgical standpoint for discharge home with close outpatient follow-up Complete short course of antibiotics secondary to suppurative nature of appendicitis
[2024-02-16 11:46] VITALS: BP 130/82; PULSE 89; RESP 18; TEMP 36.6; O2SAT 94
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
--- NOTE | 2024-02-17 10:42 | SW/DCPLANNER ---
Spoke to the patients care provider at [facility] and they stated patient is doing good. Care provider stated that they are aware of patients up coming appointment and she has her medicine. Care provider stated that they have no concerns or questions at this time. Андрей BLOOM [employer]
--- NOTE | 2024-02-17 15:43 | P.PNANES_ITS ---
[facility] Anesthesia Record Part II Anesthesia Record Part II Discharge Time: 10:25 Destination: Medical Surgical Department PACU nurse assessment reviewed?: Yes Patient Condition:: Good Anesthesia Complications:: None Swallowing reflex intact?: Yes Airway Patency: Patent Cyanosis?: No Blood Pressure: 150/88 SaO2: 100 Respiratory Rate: 20 Pulse Rate: 83 Temperature: 97.3 F Mental Status: Alert & Oriented Pain level:: 5 Nausea and/or vomitting:: None Intake, IV Amount: 0 Hydration: Adequate
[2024-02-17 15:47] VITALS: BP 150/88; PULSE 83; RESP 20; TEMP 36.3; O2SAT 100
== END 2024-02-16 16:08 | disposition home or self-care (01) ==
LOC: ER 19:06 → 2ND 22:44
PROVIDERS: Nurse Practitioner Family; Surgery; Admitting Provider Internal Medicine Adolescent Medicine; Emergency Provider Emergency Medicine; PCP Nurse Practitioner Acute Care; Visit Provider Internal Medicine Adolescent Medicine
PROC: (CPT 44950; principal; 2024-02-15 08:00)
DX: K35.30 Acute appendicitis with localized peritonitis, without perforation or gangrene (principal); F84.0 Autistic disorder; E66.01 Morbid (severe) obesity due to excess calories; R73.03 Prediabetes; K21.9 Gastro-esophageal reflux disease without esophagitis; F43.12 Post-traumatic stress disorder, chronic; Z79.84 Long term (current) use of oral hypoglycemic drugs; Z79.899 Other long term (current) drug therapy; Z79.01 Long term (current) use of anticoagulants; Z68.42 Body mass index [BMI] 45.0-49.9, adult
CPT/HCPCS: 44970; 36415; 74177; 80053; 81001; 82962; 83605; 83690; 83735; 84702; 85025; 87086; 87088; 87186; 88304; 96374; 99291; J3490; G0378; J0295; J0696; J1100; J1171; J1885; J2175; J2250; J2270; J2405; J2550; J3010; J7030; J7120; Q9967; S0028

== ENCOUNTER 2024-02-17 22:56 | Emergency (ER) | payer MEDICARE, MEDICAID, SELFPAY ==
[2024-02-17 22:56] VITALS: BP 127/84; PULSE 83; RESP 20; TEMP 36.9; O2SAT 99; BMI 49.1
--- NOTE | 2024-02-17 23:24 | CT_ITS ---
PROCEDURE INFORMATION: Exam: CT Abdomen And Pelvis With Contrast Exam date and time: 02/18/2024 1:43 AM Age: 23 years old Clinical indication: Abdominal pain; Additional info: Post appendectomy generalized abd pain vomiting TECHNIQUE: Imaging protocol: Computed tomography of the abdomen and pelvis with contrast. Radiation optimization: All CT scans at this facility use at least one of these dose optimization techniques: automated exposure control; mA and/or kV adjustment per patient size (includes targeted exams where dose is matched to clinical indication); or iterative reconstruction. Contrast material: ISOVUE; Contrast volume: 75 ml; Contrast route: IV; COMPARISON: CT ABDOMEN PELVIS W CON 02/14/2024 9:52 PM FINDINGS: Liver: The liver is low in density. Gallbladder and biliary ducts: Cholecystectomy. Pancreas: Normal. No ductal dilation. Spleen: Normal. No splenomegaly. Adrenal glands: Normal. No mass. Kidneys and ureters: Normal. No hydronephrosis. Stomach and bowel: Unremarkable. No obstruction. No mucosal thickening. Appendix: Recent appendectomy with a single surgical clips present. Intraperitoneal space: Unremarkable. No free air. No significant fluid collection. Vasculature: Unremarkable. No abdominal aortic aneurysm. Lymph nodes: Some mildly prominent right lower quadrant mesenteric lymph nodes. Urinary bladder: Small amount of air is seen in the bladder. Reproductive: Intrauterine device in good position. Bones/joints: Unremarkable. No acute fracture. Soft tissues: Unremarkable. IMPRESSION: 1. Expected postsurgical findings following recent cholecystectomy, no abscess or fluid collection identified. 2. Small amount of air seen in the bladder, likely secondary to recent Rousseau catheter but correlate with urinalysis to exclude urinary tract infection. 3. Stable hepatic steatosis. 4. Prior cholecystectomy.
--- NOTE | 2024-02-17 23:28 | [facility].EDGENADL ---
Discharge Plan Disposition Patient Disposition: Home, Self-Care Prescriptions Prescriptions: New acetaminophen 325 mg capsule 650 mg PO Q6H PRN (Reason: fever or pain) Qty: 60 0RF ibuprofen 600 mg tablet 600 mg PO Q6H PRN (Reason: pain) Qty: 60 0RF promethazine 25 mg tablet 25 mg PO Q6H PRN (Reason: nausea and vomiting) Qty: 20 0RF No Action clonidine HCl 0.1 mg tablet 0.1 mg PO DAILY Patient Comments: TAKE ONE TABLET BY MOUTH AT BEDTIME lamotrigine 200 mg tablet 200 mg PO DAILY atorvastatin 10 mg tablet 10 mg PO HS Patient Comments: TAKE ONE TABLET BY MOUTH AT BEDTIME sertraline 100 mg tablet 50 mg PO DAILY Patient Comments: TAKE 1 AND 1/2 TABLETS BY MOUTH EVERY DAY omeprazole 40 mg capsule,delayed release(DR/EC) 40 mg PO BID Patient Comments: TAKE ONE CAPSULE BY MOUTH TWICE DAILY BEFORE meals hydroxyzine HCl 25 mg tablet 25 mg PO HS Patient Comments: TAKE ONE TABLET BY MOUTH AT BEDTIME metformin 500 mg tablet extended release 24 hr 500 mg PO BIDWMEAL Patient Comments: TAKE ONE TABLET BY MOUTH TWICE DAILY metoprolol tartrate 25 mg tablet 12.5 mg PO BID Patient Comments: TAKE 1/2 TABLET BY MOUTH TWICE DAILY melatonin 5 mg tablet 5 mg PO HS hydrocodone-acetaminophen 5-325 mg Tablet 1 tab PO Q6HP PRN (Reason: Moderate To Severe Pain (4-10)) 3 Days Qty: 11 0RF amoxicillin-pot clavulanate [Augmentin] 500-125 mg tablet 1 tab PO TID 3 Days Qty: 9 0RF Referrals Follow up/Referrals: Fabrice Angel APRN [Primary Care Provider] - See instructions Activity Restrictions/Add. Instructions Additional Instructions/Restrictions: You should be taking ibuprofen, Tylenol and your [place] every 6 hours as needed for pain. Be sure not to take more than 1 g of Tylenol every 6 hours. I also sent a prescription for Phenergan, please try this instead of the Zofran. Please follow-up with your primary care provider. Please return to the emergency department if you develop any new or worsening symptoms or become concerned for your health. Clinical Impressions Clinical Impression: Abdominal pain Qualifiers: Abdominal location: generalized Qualified Code(s): R10.84 - Generalized abdominal pain Instructions Patient Instructions: DI for Acute Abdominal Pain Print Language Print Language: Romansh Discharge ED Provider: Edwin Gann General Adult HPI General Chief complaint: Abdominal Pain Stated complaint: Abdominal Pain Time Seen by Provider: 02/17/24 23:12 Mode of Arrival: EMS Source of Information: Patient and EMS Limitations: No Limitations Description of Symptoms (Recalled from ER Triage Doc. by RN): pt reports that she had an appendectomy wednesday and was discharged to home yesterday. today she began having severe abdominal pain and nausea/vomitting. pt reports that Nicholas Moss has only been allowing her to take her pain medications BID. History of Present Illness HPI narrative: 23-year-old female with history of appendectomy on Wednesday presents for continued abdominal pain. She was discharged yesterday but has not been able to get her pain medication. She reports she is taking [place] but not taking anything else. She reports she has been having some watery diarrhea as well as vomiting. She reports shortness of breath. She reports pain with motion. Reports history of IBS-C, IBS-D, GERD, gastroparesis. She reports that the pain medication she was taking earlier today did not help and that her pain is fairly severe. Related Data Home Medications ?Medication ?Instructions ?Recorded ?Confirmed atorvastatin 10 mg tablet 10 mg PO HS 02/15/24 02/15/24 clonidine HCl 0.1 mg tablet 0.1 mg PO DAILY 02/15/24 02/15/24 hydroxyzine HCl 25 mg tablet 25 mg PO HS 02/15/24 02/15/24 lamotrigine 200 mg tablet 200 mg PO DAILY 02/15/24 02/15/24 melatonin 5 mg tablet 5 mg PO HS 02/15/24 02/15/24 metformin 500 mg tablet,extended 500 mg PO BIDWMEAL 02/15/24 02/15/24 release 24 hr metoprolol tartrate 25 mg tablet 12.5 mg PO BID 02/15/24 02/15/24 omeprazole 40 mg capsule,delayed 40 mg PO BID 02/15/24 02/15/24 release sertraline 100 mg tablet 50 mg PO DAILY 02/15/24 02/15/24 Previous Rx's ?Medication ?Instructions ?Recorded amoxicillin 500 mg-potassium 1 tab PO TID 3 days #9 tabs 02/15/24 clavulanate 125 mg tablet (Augmentin) hydrocodone 5 mg-acetaminophen 325 1 tab PO Q6HP PRN Moderate To 02/15/24 mg tablet Severe Pain (4-10) 3 days #11 tabs acetaminophen 325 mg capsule 650 mg (2 x 325 mg) PO Q6H PRN 02/18/24 fever or pain #60 caps ibuprofen 600 mg tablet 600 mg PO Q6H PRN pain #60 tabs 02/18/24 promethazine 25 mg tablet 25 mg PO Q6H PRN nausea and 02/18/24 vomiting #20 tabs Allergies Allergy/AdvReac Type Severity Reaction Status Date / Time No Known Allergies Allergy Verified 02/14/24 18:43 [facility] Disclaimer: The information contained in this section may have been updated after the patient was seen, as this information can be updated by other users. Medical History (Updated 02/18/24 @ 03:50 by Edwin Gann MD) Autism Morbid obesity Prediabetes Sleep apnea GERD (gastroesophageal reflux disease) Irritable bowel syndrome PTSD (post-traumatic stress disorder) Social History (Updated 02/14/24 @ 23:12 by Hammad Salomon APRN) Smoking Status: Current every day smoker alcohol intake: never substance use type: other details: Very rarely current occupational status: unemployed Travel in the last 8 weeks: None marital status: single physical activity: none Have you lived/traveled outside [place] in past 30 days?: No Contact w/someone who lives/traveled outside [place] past 30 days?: No Exposure to someone with infectious disease in past 14 days?: No Do you have a fever (greater than 100.4 F or 38 C)?: No Have you tested positive for COVID-19: No Exposed to someone with COVID-19 in past 14 days?: No Do you have a sore throat?: No Do you have a cough?: No Do you have any weakness?: No Do you have any diarrhea?: No Are you experiencing any unusual bleeding?: No Do you have any muscle aches/pain?: No Do you have any abdominal pain?: Yes Are you experiencing loss of taste or smell?: No Other Medical History Have you received the Flu Vaccine for this season: No Have you received the Pneumonia Vaccine: No ROS Obtained: Yes All systems reviewed & no additional complaints except as documented Physical Exam General General appearance: alert and in no apparent distress Head Head exam: atraumatic and normocephalic Eye Eye exam: Present normal appearance, PERRL and EOMI ENT ENT exam: Present normal oropharynx and normal external ear exam Neck Neck exam: Present normal inspection and full ROM Chest Chest inspection: Present normal inspection and symmetric chest wall rise; Absent tenderness Respiratory Respiratory exam: Present normal lung sounds bilaterally; Absent respiratory distress Cardiovascular Cardiovascular exam: Present regular rate and normal rhythm Abdominal Exam Abdominal exam: Present soft and tenderness (Incision sites are well-appearing, no evidence of cellulitis. Patient has generalized abdominal tenderness, not significantly more tender next to the incision sites); Absent distention or guarding Extremities Exam Extremities exam: Present normal inspection; Absent edema or joint swelling Back Exam Back exam: Present normal inspection; Absent tenderness Neurological Exam Neurological exam: Present alert and oriented X3; Absent motor sensory deficit Psychiatric Psychiatric exam: Present normal affect and normal mood Skin Skin exam: Present warm, dry and normal color Lymphatic Lymphatic Findings: no adenopathy Medical Decision Making Medical Records Medical records reviewed: Yes I reviewed the patient's medical records. Screening: Per USPSTF and CDC recommendations, given the prevalence of disease in our region, it is our hospital?s policy to screen for HIV and viral Hepatitis for all patients aged 18 and over and those with ongoing risk factors. [place] Inquiry Pt receiving controlled substance: No [place] was queried for this patient: No Vital Signs: 02/17/24 22:56 02/18/24 05:16 Temperature 98.4 F 98.4 F Temperature Source Oral Oral Pulse Rate 66 Pulse Rate [Right] 83 Respiratory Rate 20 18 Blood Pressure 121/79 Blood Pressure [Right Arm] 127/84 Blood Pressure Mean [Right Arm] 98 Blood Pressure Source Automatic Cuff Blood Pressure Position Sitting 02 Sat by Pulse Oximetry 99 Oxygen Delivery Method Room Air Lab Data Lab results reviewed: Yes I reviewed the patient's lab results. Lab Results 02/17/24 23:54: WBC 9.9, RBC 4.14 L, Hgb 10.9 L, Hct 34.6 L, MCV 83.6, MCH 26.3 L, MCHC 31.5 L, RDW 14.5, Plt Count 382, MPV 9.5, Neut % (Auto) 53.0, Lymph % (Auto) 31.4, [place] % (Auto) 9.7 H, Eos % (Auto) 4.6, Baso % (Auto) 0.6, Neut # (Auto) 5.2, Lymph # (Auto) 3.1, [place] # (Auto) 1.0, Eos # (Auto) 0.5 H, Baso # (Auto) 0.1, D-Dimer 0.87 H, Sodium 137, Potassium 3.9, Chloride 102, Carbon Dioxide 28, Anion Gap 10.9, BUN 5 L D, Creatinine 0.70, Estimated Creat Clear 99, Estimated GFR 104, Est GFR ( Amer) 125, Glucose 96, Calcium 9.5, Total Bilirubin 0.4, AST 58 H D, ALT 29, Alkaline Phosphatase 120, Total Protein 7.0, Albumin 4.1, Globulin 2.9, Albumin/Globulin Ratio 1.4, Lipase 390 H, Serum HCG, Qual Negative 02/17/24 23:54 02/17/24 23:54 Orders (Tests/Meds): ED MEDICATIONS Discontinued Medications Generic Name Dose Route Start Last Admin Trade Name Freq PRN Reason Stop Dose Admin Acetaminophen 1,000 mg 02/17/24 23:24 02/17/24 23:39 Acetaminophen 500mg Tab PO 02/17/24 23:25 1,000 mg ONCE ONE Administration Iopamidol 75 ml 02/18/24 01:42 02/18/24 01:43 Iopamidol-370 (76%);100ml Bottle IV 02/18/24 01:43 75 ml ONCE ONE Administration Ketorolac Tromethamine 30 mg 02/17/24 23:24 02/17/24 23:37 Ketorolac 30mg/Ml Vial IV 02/17/24 23:25 30 mg ONCE ONE Administration Morphine Sulfate 4 mg 02/17/24 23:24 02/17/24 23:38 Morphine 4mg/Ml Syringe IV 02/17/24 23:25 4 mg ONCE ONE Administration Promethazine HCl 25 mg 02/17/24 23:24 02/17/24 23:37 Promethazine Hcl 25mg/Ml 1ml Vial IV 02/17/24 23:25 25 mg ONCE ONE Administration Sodium Chloride 25 ml 02/17/24 23:24 02/17/24 23:37 Sodium Chloride 0.9% 25ml Bag IV 02/17/24 23:25 25 ml ONCE ONE Administration Sodium Chloride 10 ml 02/18/24 01:42 02/18/24 01:42 Sodium Chloride 0.9% 10ml Syr (Rad Only) IV 03/19/24 01:41 10 ml NEEDED PRN Administration Maintain IV Site ORDERS Category Date Time Status CT abdomen pelvis w con Stat Cat Scan 02/17/24 23:24 Completed CBC w/Auto Diff [Complete Blood Count Auto Diff] Stat Lab 02/17/24 23:54 Completed CMP [Comprehensive Metabolic Panel] Stat Lab 02/17/24 23:54 Completed D-Dimer Stat Lab 02/17/24 23:54 Completed HCG Qualitative, Serum Stat Lab 02/17/24 23:54 Completed Lipase Stat Lab 02/17/24 23:54 Completed Medical Decision Narrative: 23-year-old female with appendectomy on Wednesday presents with worsening abdominal pain, generalized, as well as shortness of breath, nausea vomiting,. History was obtained via interactive discussion with patient, chart review. On arrival, patient is [afebrile, hemodynamically stable, satting appropriately, alert, oriented x4, GCS 15], moving all extremities spontaneously. Full physical exam performed and significant for generalized abdominal tenderness, incision sites well-appearing. Differential includes but is not limited to postop complication such as abscess, perforation, expected postoperative pain, gastroenteritis Patient was given Tylenol Toradol morphine Zofran for symptomatic management and correction of underlying abnormalities. Workup initiated including CBC CMP D-dimer test lipase CT abdomen and pelvis with IV contrast. On re-evaluation, patient [remains afebrile, HD stable.] Laboratory workup independently interpreted by me and significant for negative D-dimer by years criteria, no significant leukocytosis, no significant electrolyte derangement. Imaging independently interpreted by me and significant for expected postoperative changes, no evidence of abscess or perforation. See radiology read for full review of final results. Given patient history, exam and workup, patient's presentation most likely represents postoperative pain in the setting of recent appendectomy. Given the vomiting and diarrhea she may also have a mild gastroenteritis. Patient was discharged with prescription for Tylenol, ibuprofen and Phenergan. Procedures Risk/Benefits of Procedure(s) Were Explained: Yes Critical Care Critical Care Time Critical Care Time: No
[2024-02-17] MEDS: SODIUM CHLORIDE 0.9% 25ML BAG 25 ML IV (23:37)
[2024-02-17] MEDS: PROMETHAZINE HCL 25MG/ML 1ML VIAL 25 MG IV (23:37)
[2024-02-17] MEDS: KETOROLAC 30MG/ML VIAL 30 MG IV (23:37)
[2024-02-17] MEDS: MORPHINE 4MG/ML SYRINGE 4 MG IV (23:38)
[2024-02-17] MEDS: ACETAMINOPHEN 500MG TAB 1000 MG PO (23:39)
[2024-02-18 00:01] LABS: Basophils # 0.1 K/mm3 (0-0.2); Basophils % 0.6 % (0.1-2.0); Eosinophils # 0.5 K/mm3 (0.0-0.4); Eosinophils % 4.6 % (0.1-12.0); Hematocrit 34.6 % (37.0-47.0); Hemoglobin 10.9 g/dL (12.2-16.2); Lymphocytes # 3.1 K/mm3 (0.7-4.5); Lymphocytes % 31.4 % (10-50); Mean Corpuscular HGB Conc 31.5 g/dL (31.8-35.4); Mean Corpuscular Hemoglobin 26.3 pg (27.0-31.2); Mean Corpuscular Volume 83.6 fl (81-99); Mean Platelet Volume 9.5 fl (7.4-10.4); Monocytes % 9.7 % (1.7-9.3); Neutrophils # 5.2 K/mm3 (1.8-7.8); Platelet Count 382 K/mm3 (142-424); Red Blood Count 4.14 M/mm3 (4.20-5.40); Red Cell Distribution Width 14.5 % (11.5-17.5); White Blood Count 9.9 K/mm3 (4.8-10.8)
[2024-02-18 00:10] LABS: Albumin Level 4.1 g/dl (3.5-5.0); Chloride 102 mmol/L (98-107); Potassium 3.9 mmoL/L (3.5-5.1); Sodium 137 mmol/L (136-145)
[2024-02-18 00:11] LABS: HCG Qualitative, Serum Negative (Negative)
[2024-02-18 00:12] LABS: Alanine Aminotransferase 29 U/L (12-78); Albumin/Globulin Ratio 1.4 (1.1-1.8); Alkaline Phosphatase 120 U/L (38-126); Anion Gap 10.9 mEq/L (5-15); Aspartate Amino Transferase 58 U/L (14-36); Bilirubin,Total 0.4 mg/dl (0.2-1.3); Blood Urea Nitrogen 5 mg/dl (7-17); Calcium 9.5 mg/dl (8.4-10.2); Carbon Dioxide 28 mmol/L (22.0-30.0); Creatinine Clearance Estimated 99 mL/min (50-200); Estimated Glomerular Filt Rate 104 ml/min (>60); GFR (African American) 125 ML/MIN (>60); Globulin 2.9 g/dL (1.3-3.2); Glucose 96 mg/dl (74-100); Lipase 390 U/L (23-300)
[2024-02-18 00:40] LABS: D-Dimer 0.87 ug/mL (0.0-0.5)
[2024-02-18] MEDS: SODIUM CHLORIDE 0.9% 10ML SYR (RAD ONLY) 10 ML IV (01:42)
[2024-02-18] MEDS: IOPAMIDOL-370 (76%);100ML BOTTLE 75 ML IV (01:43)
[2024-02-18 05:16] VITALS: BP 121/79; PULSE 66; RESP 18; TEMP 36.9; O2SAT 99
== END 2024-02-18 05:17 | disposition home or self-care (01) ==
PROVIDERS: Emergency Provider Emergency Medicine; PCP Nurse Practitioner Acute Care
DX: R10.84 Generalized abdominal pain (principal); R11.2 Nausea with vomiting, unspecified
CPT/HCPCS: 74177; 80053; 83690; 84703; 85025; 85378; 96374; 96375; 99285; J1885; J2270; J2550; Q9967

== ENCOUNTER 2024-03-02 18:38 | Emergency (ER) | payer MEDICARE, MEDICAID, SELFPAY ==
--- NOTE | 2024-03-02 18:38 | ED_ITS ---
<Statement entered by Anali Rojo DO - 03/03/24 00:12> I was consulted by the CRUZ, and we discussed the complexity of the problems being addressed. I approved the treatment and management plan for this patient's care in the emergency department, thus performing a substantive portion of the medical decision making. Anali Rojo DO Discharge Plan Disposition Patient Disposition: Home, Self-Care Condition: Good Prescriptions Prescriptions: New nitrofurantoin monohyd/m-cryst 100 mg capsule 100 mg PO BID 5 Days Qty: 10 0RF Rx Instructions: must administer with a meal/food No Action [facility] 10 billion cell -200 mg capsule, sprinkle PO Patient Comments: TAKE TWO CAPSULES BY MOUTH EVERY DAY FOR 10 DAYS acetaminophen 325 mg capsule 650 mg PO Q6H PRN (Reason: fever or pain) Qty: 60 0RF ibuprofen 600 mg tablet 600 mg PO Q6H PRN (Reason: pain) Qty: 60 0RF promethazine 25 mg tablet 25 mg PO Q6H PRN (Reason: nausea and vomiting) Qty: 20 0RF clonidine HCl 0.1 mg tablet 0.1 mg PO DAILY Patient Comments: TAKE ONE TABLET BY MOUTH AT BEDTIME lamotrigine 200 mg tablet 200 mg PO DAILY atorvastatin 10 mg tablet 10 mg PO HS Patient Comments: TAKE ONE TABLET BY MOUTH AT BEDTIME sertraline 100 mg tablet 50 mg PO DAILY Patient Comments: TAKE 1 AND 1/2 TABLETS BY MOUTH EVERY DAY omeprazole 40 mg capsule,delayed release(DR/EC) 40 mg PO BID Patient Comments: TAKE ONE CAPSULE BY MOUTH TWICE DAILY BEFORE meals hydroxyzine HCl 25 mg tablet 25 mg PO HS Patient Comments: TAKE ONE TABLET BY MOUTH AT BEDTIME metformin 500 mg tablet extended release 24 hr 500 mg PO BIDWMEAL Patient Comments: TAKE ONE TABLET BY MOUTH TWICE DAILY metoprolol tartrate 25 mg tablet 12.5 mg PO BID Patient Comments: TAKE 1/2 TABLET BY MOUTH TWICE DAILY melatonin 5 mg tablet 5 mg PO HS Referrals Follow up/Referrals: Provider,Referral, MD [Primary Care Provider] - See instructions Activity Restrictions/Add. Instructions Additional Instructions/Restrictions: Please call the general surgery clinic tomorrow to be seen for your abdominal wound. Continue taking Tylenol Motrin as needed. I have sent a prescription into your pharmacy for what appears to be a urinary tract infection. Please follow-up with your PCP if you show no improvement or any worsening signs or symptoms as needed. Leave the dressing that I applied in place until you see the general surgeon tomorrow. Clinical Impressions Clinical Impression: Postoperative dehiscence of skin wound Qualifiers: Encounter type: initial encounter Qualified Code(s): T81.31XA - Disruption of external operation (surgical) wound, not elsewhere classified, initial encounter Urinary tract infection Qualifiers: Urinary tract infection type: site unspecified Hematuria presence: with hematuria Qualified Code(s): N39.0 - Urinary tract infection, site not specified Instructions Patient Instructions: DI for Urinary Tract Infection (UTI) Print Language Print Language: Swazi Discharge ED Provider: Anali Rojo General Adult HPI General Chief complaint: Abdominal Pain Stated complaint: left side pain Time Seen by Provider: 03/02/24 18:38 History of Present Illness HPI narrative: Patient is a 24-year-old female presents for postsurgical complication. Patient had a laparoscopic appendectomy done on February 15, [address] Alvarado. She saw him in clinic in follow-up and he removed her umbilical port sutures. Patient states today that the wound popped open and is very painful. Patient additionally reports that when she was coming to her appointment yesterday she slipped on ice falling on her left side. She reports left-sided abdominal pain. She denies any fever chills hemoptysis hematochezia melena nausea vomiting diarrhea. She is able to tolerate food but reports loose stools since surgery. She denies any numbness or tingling loss of the ability to walk or any other injury. She not strike her head she did not lose consciousness. Related Data Home Medications ?Medication ?Instructions ?Recorded ?Confirmed atorvastatin 10 mg tablet 10 mg PO HS 02/15/24 03/01/24 clonidine HCl 0.1 mg tablet 0.1 mg PO DAILY 02/15/24 03/01/24 hydroxyzine HCl 25 mg tablet 25 mg PO HS 02/15/24 03/01/24 lamotrigine 200 mg tablet 200 mg PO DAILY 02/15/24 03/01/24 melatonin 5 mg tablet 5 mg PO HS 02/15/24 03/01/24 metformin 500 mg tablet,extended 500 mg PO BIDWMEAL 02/15/24 03/01/24 release 24 hr metoprolol tartrate 25 mg tablet 12.5 mg PO BID 02/15/24 03/01/24 omeprazole 40 mg capsule,delayed 40 mg PO BID 02/15/24 03/01/24 release sertraline 100 mg tablet 50 mg PO DAILY 02/15/24 03/01/24 Lactobacil rhamnosus GG 10 billion cap PO 03/01/24 03/01/24 cell-inulin 200 mg sprinkle capsule ([employer]) Previous Rx's ?Medication ?Instructions ?Recorded acetaminophen 325 mg capsule 650 mg (2 x 325 mg) PO Q6H PRN 02/18/24 fever or pain #60 caps ibuprofen 600 mg tablet 600 mg PO Q6H PRN pain #60 tabs 02/18/24 promethazine 25 mg tablet 25 mg PO Q6H PRN nausea and 02/18/24 vomiting #20 tabs nitrofurantoin 100 mg PO BID 5 days #10 caps 03/02/24 monohydrate/macrocrystals 100 mg capsule Allergies Allergy/AdvReac Type Severity Reaction Status Date / Time No Known Allergies Allergy Verified 03/01/24 09:58 [facility] Disclaimer: The information contained in this section may have been updated after the patient was seen, as this information can be updated by other users. Medical History (Updated 03/02/24 @ 20:46 by ABDOUL Temple) Autism Morbid obesity Prediabetes Sleep apnea GERD (gastroesophageal reflux disease) Irritable bowel syndrome PTSD (post-traumatic stress disorder) Surgical History (Updated 03/01/24 @ 10:00 by Sivan Alford [facility]) History of wisdom tooth extraction History of esophagogastroduodenoscopy (EGD) History of colonoscopy History of adenoidectomy History of appendectomy History of laparoscopic cholecystectomy Social History Smoking Status: Current every day smoker alcohol intake: never substance use type: other details: Very rarely current occupational status: unemployed Travel in the last 8 weeks: None marital status: single physical activity: none Other Medical History Have you received the Flu Vaccine for this season: No Have you received the Pneumonia Vaccine: No ROS Obtained: Yes Systems reviewed as appropriate & no additional complaints except as documented Physical Exam General General appearance: alert and in no apparent distress Respiratory Respiratory exam: Present normal lung sounds bilaterally Cardiovascular Cardiovascular exam: Present regular rate and normal rhythm Neurological Exam Neurological exam: Present alert and oriented X3 Medical Decision Making Medical Records Medical records reviewed: Yes I reviewed the patient's medical records. Screening: Per USPSTF and CDC recommendations, given the prevalence of disease in our region, it is our hospital?s policy to screen for HIV and viral Hepatitis for all patients aged 18 and over and those with ongoing risk factors. Tor[place] Inquiry Pt receiving controlled substance: No Vital Signs: 03/02/24 19:00 03/02/24 20:51 Temperature 98.9 F 98.1 F Temperature Source Oral Pulse Rate 90 Pulse Rate [Left] 105 H Respiratory Rate 16 18 Blood Pressure 147/95 H Blood Pressure [Right Arm] 138/108 H Blood Pressure Mean [Right Arm] 118 Blood Pressure Source [Right Arm] Automatic Cuff Blood Pressure Position [Right Arm] Sitting 02 Sat by Pulse Oximetry 97 Oxygen Delivery Method Room Air Room Air Lab Data Lab results reviewed: Yes I reviewed the patient's lab results. Lab Results 03/02/24 18:56: WBC 14.5 H, RBC 4.38, Hgb 11.4 L, Hct 36.1 L, MCV 82.4, MCH 26.0 L, MCHC 31.6 L, RDW 14.5, Plt Count 446 H, MPV 9.6, Neut % (Auto) 61.0, Lymph % (Auto) 26.2, [place] % (Auto) 8.7, Eos % (Auto) 2.2, Baso % (Auto) 0.9, Neut # (Auto) 8.8 H, Lymph # (Auto) 3.8, [place] # (Auto) 1.3 H, Eos # (Auto) 0.3, Baso # (Auto) 0.1, Sodium 139, Potassium 3.3 L, Chloride 104, Carbon Dioxide 24, Anion Gap 14.3, BUN 4 L, Creatinine 0.70, Estimated Creat Clear 98, Estimated GFR 103, Est GFR ( Amer) 124, Glucose 110 H, Calcium 9.4, Magnesium 1.6, Total Bilirubin 0.2, AST 51 H, ALT 26, Alkaline Phosphatase 90, Total Protein 7.3, Albumin 4.6, Globulin 2.7, Albumin/Globulin Ratio 1.7, Procalcitonin 0.055, Urine Color Yellow, Urine Appearance Sl cloudy, Urine pH 6.0, Ur Specific [place] >= 1.030, Urine Protein Negative, Urine Glucose (UA) Negative, Urine Ketones Negative, Urine Blood 2+ A, Urine Nitrate Negative, Urine Bilirubin Negative, Urine Urobilinogen 0.2, Ur Leukocyte Esterase Trace, Urine RBC 3-5, Urine WBC 3-5, Ur Squamous Epith Cells 10-20, Urine Bacteria 3+, Urine HCG, Qual Negative 03/02/24 18:56 03/02/24 18:56 Orders (Tests/Meds): ED MEDICATIONS Discontinued Medications Generic Name Dose Route Start Last Admin Trade Name Freq PRN Reason Stop Dose Admin Acetaminophen 1,000 mg 03/02/24 19:00 03/02/24 19:09 Acetaminophen 500mg Tab PO 03/02/24 19:01 1,000 mg ONCE ONE Administration Iopamidol 75 ml 03/02/24 19:59 03/02/24 20:00 Iopamidol-370 (76%);100ml Bottle IV 03/02/24 20:00 75 ml ONCE ONE Administration Nitrofurantoin Macrocrystals 100 mg 03/02/24 20:52 03/02/24 21:02 Nitrofurantoin 100mg Capsule PO 03/02/24 20:53 100 mg ONCE ONE Administration Sodium Chloride 10 ml 03/02/24 19:59 03/02/24 20:00 Sodium Chloride 0.9% 10ml Syr (Rad Only) IV 03/02/24 20:00 10 ml ONCE ONE Administration ORDERS Category Date Time Status CT abdomen pelvis w con Stat Cat Scan 03/02/24 18:55 Completed CBC w/Auto Diff [Complete Blood Count Auto Diff] Stat Lab 03/02/24 18:56 Completed CMP [Comprehensive Metabolic Panel] Stat Lab 03/02/24 18:56 Completed Magnesium Stat Lab 03/02/24 18:56 Completed Procalcitonin Stat Lab 03/02/24 18:56 Completed UA [Urinalysis and Microscopic] Stat Lab 03/02/24 18:56 Completed Urine , HCG Qual. Stat Lab 03/02/24 18:56 Completed Urine Culture Stat Micro 03/02/24 18:56 Received Medical Decision Narrative: In summary patient is a 24-year-old female who presents to the emergency department for evaluation of postoperative wound dehiscence and left-sided abdominal pain from a fall. Patient is initially hypertensive with a blood pressure 138/108 tachycardic at 105 breathing 16 times a minute with normal sinus rhythm on the bedside monitor satting at 97% on room air upon arrival, afebrile at 98.9. Physical exam is remarkable for dehiscence of her abdominal port wound however there is no evidence of cellulitis induration or drainage. Appears to be superficial currently. Patient is tender to palpation along the left abdominal quadrants but there is no rebound no guarding or rigidity. There is no evidence of ecchymosis contusions abrasions. Patient has no bony abnormalities. Pelvis is stable. Patient has full range of motion of her lower extremities and upper extremities. Breath sounds are clear and equal bilaterally to the bases.. Differential diagnosis includes simple wound dehiscence versus abscess development versus intra-abdominal injury fluid abscess infection diverticulitis etc. Initial workup will be conducted with hematologic labs CT scan abdomen pelvis urinalysis.. Initial interventions include Toradol Tylenol. Initial workup reviewed by me shows her white count is 14.5 up from 9.9 on February 17, 2024 with an absolute neutrophil count of 8.8, the remainder of her hematologic labs are nonactionable including a procalcitonin of 0.055 however her urinalysis shows 2+ blood trace leukocyte Estrace nitrite negative on dipstick but microscopic exam shows 3-5 red cells 3- 5 white cells 3+ bacteria which could be consistent with a urinary tract infection.. Upon repeat evaluation patient reported improvement in her initial discomfort after initial intervention. Given this I had interactive discussion with Dr. Rizzo who is on-call for general surgery about patient findings and postoperative wound complication and patient management. I will pack the wound with a wick covering with dry gauze and he will see her in the clinic tomorrow. Thus patient is appropriate for discharge with wound care precautions instructions to call the clinic in the morning. She will also be given a prescription for Macrobid with first dose given here and strict return precautions. Critical Care Critical Care Time Critical Care Time: No
--- NOTE | 2024-03-02 18:55 | CT_ITS ---
PROCEDURE INFORMATION: Exam: CT Abdomen And Pelvis With Contrast Exam date and time: 03/02/2024 7:59 PM Age: 24 years old Clinical indication: Abdominal pain; Localized; Left lower quadrant (llq); Additional info: Left lower quadrant abdominal pain TECHNIQUE: Imaging protocol: Computed tomography of the abdomen and pelvis with contrast. Radiation optimization: All CT scans at this facility use at least one of these dose optimization techniques: automated exposure control; mA and/or kV adjustment per patient size (includes targeted exams where dose is matched to clinical indication); or iterative reconstruction. Contrast material: ISOVUE; Contrast volume: 75 ml; Contrast route: IV; COMPARISON: CT ABDOMEN PELVIS W CON 02/18/2024 1:43 AM FINDINGS: Liver: Fatty liver and hepatomegaly Gallbladder and biliary ducts: Cholecystectomy. Pancreas: Normal. No ductal dilation. Spleen: Normal. No splenomegaly. Adrenal glands: Normal. No mass. Kidneys and ureters: Normal. No hydronephrosis. Stomach and bowel: Unremarkable. No obstruction. No mucosal thickening. Appendix: Appendectomy Intraperitoneal space: Unremarkable. No free air. No significant fluid collection. Vasculature: Unremarkable. No abdominal aortic aneurysm. Lymph nodes: Multiple subcentimeter mesenteric lymph nodes diffusely unchanged from previous study. Urinary bladder: Unremarkable as visualized. Reproductive: Unremarkable as visualized. Bones/joints: Unremarkable. No acute fracture. Soft tissues: Stable mild wall thickening about the umbilicus skin. IMPRESSION: No acute findings.
[2024-03-02 19:00] VITALS: BP 138/108; PULSE 105; RESP 16; TEMP 37.2; O2SAT 97; BMI 49.1
[2024-03-02 19:07] LABS: Basophils # 0.1 K/mm3 (0-0.2); Basophils % 0.9 % (0.1-2.0); Eosinophils # 0.3 K/mm3 (0.0-0.4); Eosinophils % 2.2 % (0.1-12.0); Hematocrit 36.1 % (37.0-47.0); Hemoglobin 11.4 g/dL (12.2-16.2); Lymphocytes # 3.8 K/mm3 (0.7-4.5); Lymphocytes % 26.2 % (10-50); Mean Corpuscular HGB Conc 31.6 g/dL (31.8-35.4); Mean Corpuscular Volume 82.4 fl (81-99); Mean Platelet Volume 9.6 fl (7.4-10.4); Monocytes # 1.3 K/mm3 (0.1-1.0); Monocytes % 8.7 % (1.7-9.3); Neutrophils # 8.8 K/mm3 (1.8-7.8); Platelet Count 446 K/mm3 (142-424); Red Blood Count 4.38 M/mm3 (4.20-5.40); Red Cell Distribution Width 14.5 % (11.5-17.5); White Blood Count 14.5 K/mm3 (4.8-10.8)
[2024-03-02] MEDS: ACETAMINOPHEN 500MG TAB 1000 MG PO (19:09)
[2024-03-02 19:13] LABS: Microscopic, Urine URINE MICROSCOPIC (MICROSCOPIC)
[2024-03-02 19:23] LABS: Magnesium 1.6 mg/dl (1.6-2.3)
[2024-03-02 19:25] LABS: Alanine Aminotransferase 26 U/L (12-78); Albumin Level 4.6 g/dl (3.5-5.0); Albumin/Globulin Ratio 1.7 (1.1-1.8); Alkaline Phosphatase 90 U/L (38-126); Anion Gap 14.3 mEq/L (5-15); Appearance,Urine SL CLOUDY (Clear); Aspartate Amino Transferase 51 U/L (14-36); Bilirubin,Total 0.2 mg/dl (0.2-1.3); Bilirubin,Urine Negative (Negative); Blood Urea Nitrogen 4 mg/dl (7-17); Blood, Urine 2+ (Negative); Calcium 9.4 mg/dl (8.4-10.2); Carbon Dioxide 24 mmol/L (22.0-30.0); Chloride 104 mmol/L (98-107); Color,Urine YELLOW (Yellow); Creatinine Clearance Estimated 98 mL/min (50-200); Estimated Glomerular Filt Rate 103 ml/min (>60); GFR (African American) 124 ML/MIN (>60); Globulin 2.7 g/dL (1.3-3.2); Glucose 110 mg/dl (74-100); Glucose,Urine (UA) Negative (Negative); Ketones,Urine Negative (Negative); Leukocyte Esterase,Urine TRACE (Negative); Nitrate,Urine Negative (Negative); Potassium 3.3 mmoL/L (3.5-5.1); Protein,Urine Negative (Negative); Sodium 139 mmol/L (136-145); Specific Gravity, Urine >= 1.030 (1.005-1.030); Total Protein,Serum 7.3 g/dl (6.3-8.2); Urobilinogen,Urine 0.2 EU/dl (0.2)
[2024-03-02 19:43] LABS: Procalcitonin 0.055 ng/mL (0.0-2.0)
[2024-03-02 19:45] LABS: Bacteria,Urine 3+ /lpf
[2024-03-02 19:50] LABS: Urine Pregnancy, HCG Qual. Negative (Negative)
[2024-03-02] MEDS: IOPAMIDOL-370 (76%);100ML BOTTLE 75 ML IV (20:00)
[2024-03-02] MEDS: SODIUM CHLORIDE 0.9% 10ML SYR (RAD ONLY) 10 ML IV (20:00)
[2024-03-02 20:51] VITALS: BP 147/95; PULSE 90; RESP 18; TEMP 36.7; O2SAT 99
[2024-03-02] MEDS: NITROFURANTOIN 100MG CAPSULE 100 MG PO (21:02)
--- NOTE | 2024-03-05 08:22 | PC.NURSE ---
discussed prelim urine culture with , pt dc with mike thomas until final
--- NOTE | 2024-03-08 08:15 | PC.NURSE ---
Final urine culture discussed with , no new orders
== END 2024-03-02 21:02 | disposition home or self-care (01) ==
PROVIDERS: Physician Assistant; Emergency Provider Emergency Medicine
DX: N39.0 Urinary tract infection, site not specified (principal); T81.31XA Disruption of external operation (surgical) wound, not elsewhere classified, initial encounter; R10.9 Unspecified abdominal pain; W00.0XXA Fall on same level due to ice and snow, initial encounter; Y93.89 Activity, other specified; Y92.9 Unspecified place or not applicable
CPT/HCPCS: 74177; 80053; 81001; 81025; 83735; 84145; 85025; 87086; 87088; 87186; 99285; Q9967

== ENCOUNTER 2024-03-08 10:20 | Emergency (ER) | payer MEDICARE, MEDICAID, SELFPAY ==
[2024-03-08] VITALS (9 sets, daily range): BP systolic 109–126; BP diastolic 69–87; PULSE 60–83; RESP 15–20; TEMP 36.7–36.8; O2SAT 96–99; BMI 47.0; BMI 47.2
--- NOTE | 2024-03-08 10:50 | EXP.UTC ---
Discharge Plan Disposition Patient Disposition: Still a Patient Prescriptions Prescriptions: No Action [facility] 10 billion cell -200 mg capsule, sprinkle PO Patient Comments: TAKE TWO CAPSULES BY MOUTH EVERY DAY FOR 10 DAYS acetaminophen 325 mg capsule 650 mg PO Q6H PRN (Reason: fever or pain) Qty: 60 0RF ibuprofen 600 mg tablet 600 mg PO Q6H PRN (Reason: pain) Qty: 60 0RF promethazine 25 mg tablet 25 mg PO Q6H PRN (Reason: nausea and vomiting) Qty: 20 0RF clonidine HCl 0.1 mg tablet 0.1 mg PO DAILY Patient Comments: TAKE ONE TABLET BY MOUTH AT BEDTIME lamotrigine 200 mg tablet 200 mg PO DAILY atorvastatin 10 mg tablet 10 mg PO HS Patient Comments: TAKE ONE TABLET BY MOUTH AT BEDTIME sertraline 100 mg tablet 50 mg PO DAILY Patient Comments: TAKE 1 AND 1/2 TABLETS BY MOUTH EVERY DAY omeprazole 40 mg capsule,delayed release(DR/EC) 40 mg PO BID Patient Comments: TAKE ONE CAPSULE BY MOUTH TWICE DAILY BEFORE meals hydroxyzine HCl 25 mg tablet 25 mg PO HS Patient Comments: TAKE ONE TABLET BY MOUTH AT BEDTIME metformin 500 mg tablet extended release 24 hr 500 mg PO BIDWMEAL Patient Comments: TAKE ONE TABLET BY MOUTH TWICE DAILY metoprolol tartrate 25 mg tablet 12.5 mg PO BID Patient Comments: TAKE 1/2 TABLET BY MOUTH TWICE DAILY melatonin 5 mg tablet 5 mg PO HS nitrofurantoin monohyd/m-cryst 100 mg capsule 100 mg PO BID 5 Days Qty: 10 0RF Rx Instructions: must administer with a meal/food Referrals Follow up/Referrals: Provider,Referral, MD [Primary Care Provider] - See instructions Print Language Print Language: Turkmen Discharge ED [facility] [place] General Stated complaint: dizzy, lightheaded, nausea Mode of Arrival: Ambulatory Source of Information: Patient Limitations: No Limitations Time Seen by Provider: 03/08/24 10:43 Description of Symptoms (Recalled from Triage Doc. by RN): PATIENT C/O DIARRHEA, VOMITING, BLQ PAIN, AND FEELING LIGHT-HEADED X 3 DAYS. PATIENT REPORTS HAVING AN APPENDECTOMY 3 WEEKS AGO. HEENT Symptoms (Recalled from RN notes): Yes Resp Symptoms (Recalled from RN notes): No Skin Symptoms (Recalled from RN notes): No MS Symptoms (Recalled from RN notes): No Functional Status (Recalled from RN notes): WNL History of Present Illness Provider Complaint: 24-year-old female presents for complaints of diarrhea, vomiting, bilateral lower quadrant pain, and feeling lightheaded for 3 days. Patient states she had appendectomy [address] Alvarado and followed up today with Dr. Rizzo and was told she needed to go to to the [facility] or ER for evaluation. Per patient she is being currently treated for a UTI. Related Data Home Medications ?Medication ?Instructions ?Recorded ?Confirmed atorvastatin 10 mg tablet 10 mg PO HS 02/15/24 03/08/24 clonidine HCl 0.1 mg tablet 0.1 mg PO DAILY 02/15/24 03/08/24 hydroxyzine HCl 25 mg tablet 25 mg PO HS 02/15/24 03/08/24 lamotrigine 200 mg tablet 200 mg PO DAILY 02/15/24 03/08/24 melatonin 5 mg tablet 5 mg PO HS 02/15/24 03/08/24 metformin 500 mg tablet,extended 500 mg PO BIDWMEAL 02/15/24 03/08/24 release 24 hr metoprolol tartrate 25 mg tablet 12.5 mg PO BID 02/15/24 03/08/24 omeprazole 40 mg capsule,delayed 40 mg PO BID 02/15/24 03/08/24 release sertraline 100 mg tablet 50 mg PO DAILY 02/15/24 03/08/24 Lactobacil rhamnosus GG 10 billion cap PO 03/01/24 03/08/24 cell-inulin 200 mg sprinkle capsule ([facility]) Previous Rx's ?Medication ?Instructions ?Recorded acetaminophen 325 mg capsule 650 mg (2 x 325 mg) PO Q6H PRN 02/18/24 fever or pain #60 caps ibuprofen 600 mg tablet 600 mg PO Q6H PRN pain #60 tabs 02/18/24 promethazine 25 mg tablet 25 mg PO Q6H PRN nausea and 02/18/24 vomiting #20 tabs nitrofurantoin 100 mg PO BID 5 days #10 caps 03/02/24 monohydrate/macrocrystals 100 mg capsule Allergies Allergy/AdvReac Type Severity Reaction Status Date / Time No Known Allergies Allergy Verified 03/08/24 10:06 Worker's Comp Is this a Worker's Comp case?: No PFSH PFSH Disclaimer: The information contained in this section may have been updated after the patient was seen, as this information can be updated by other users. 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) Smoking Status: Current every day smoker alcohol intake: never substance use type: other details: Very rarely current occupational status: unemployed Travel in the last 8 weeks: None marital status: single physical activity: none Have you lived/traveled outside US in past 30 days?: No Contact w/someone who lives/traveled outside US past 30 days?: No Exposure to someone with infectious disease in past 14 days?: No Do you have a fever (greater than 100.4 F or 38 C)?: No Have you tested positive for COVID-19: No Exposed to someone with COVID-19 in past 14 days?: No Do you have a sore throat?: No Do you have a cough?: No Do you have any weakness?: Yes Do you have any diarrhea?: Yes Are you experiencing any unusual bleeding?: No Do you have any muscle aches/pain?: No Do you have any abdominal pain?: No Are you experiencing loss of taste or smell?: No ROS Obtained: Yes Systems reviewed as appropriate & no additional complaints except as documented Constitutional Constitutional: Reports system reviewed and no additional complaints, except as documented and Reports as per HPI ENT Ears, Nose, Mouth, and Throat: Reports system reviewed and no additional complaints, except as documented, Reports as per HPI, Reports dizziness, Reports nasal discharge, Reports post nasal drip and Reports sinus pressure Gastrointestinal Gastrointestingal: Reports system reviewed and no additional complaints, except as documented, as per HPI, diarrhea and vomiting Musculoskeletal Musculoskeletal: Reports system reviewed and no additional complaints, except as documented Neurologic Neurologic: Reports system reviewed and no additional complaints, except as documented, Reports as per HPI and Reports dizziness Endocrine Endocrine: Reports system reviewed and no additional complaints, except as documented Hematologic/Lymphatic Henatologic/Lymphatic: Reports system reviewed and no additional complaints, except as documented Allergic/Immunologic Allergic/Immunologic: Reports system reviewed and no additional complaints, except as documented Physical Exam General General appearance: alert and in no apparent distress Eye Eye exam: Present normal appearance ENT ENT exam: Present normal exam, normal oropharynx, mucous membranes moist and TM's normal bilaterally Respiratory Respiratory exam: Present normal lung sounds bilaterally Cardiovascular Cardiovascular exam: Present regular rate and normal rhythm Abdominal Exam Abdominal exam: Present soft, tenderness and normal bowel sounds Abdominal tenderness: Present RLQ and LLQ Comment: Healing incisions Neurological Exam Neurological exam: Present alert and oriented X3 Skin Skin exam: Present warm and intact Medical Decision Making Medical Records Medical records reviewed: Yes I reviewed the patient's medical records. Screening: Per USPSTF and CDC recommendations, given the prevalence of disease in our region, it is our hospital?s policy to screen for HIV and viral Hepatitis for all patients aged 18 and over and those with ongoing risk factors. Tor[place] Inquiry Pt receiving controlled substance: No Tor[place] was queried for this patient: No Vital Signs: 03/08/24 10:30 Temperature 98.1 F Temperature Source Oral Pulse Rate [Left Brachial] 83 Respiratory Rate 20 Blood Pressure [Left Arm] 116/86 Blood Pressure Mean [Left Arm] 96 Blood Pressure Source [Left Arm] Automatic Cuff Blood Pressure Position [Left Arm] Sitting 02 Sat by Pulse Oximetry 97 Oxygen Delivery Method Room Air Medical Decision Narrative: Spoke with the bj and Dr. Rizzo's office patient was sent down to further evaluate to rule out dehydration or other causes for nausea and vomiting diarrhea and dizziness.
[2024-03-08 10:54] LABS: Apearance,Urine Cloudy (Clear); Color,Urine Dark Yellow (Yellow); PH,Urine 5.5 (5.0-8.5)
[2024-03-08 10:55] LABS: Bilirubin,Urine 1+ (Negative); Blood, Urine Trace (Negative); Glucose,Urine (UA) Negative (Negative); Ketones,Urine Negative (Negative); Protein,Urine 1+ (Negative); UTC Leukocyte Esterase,Urine 1+ (Negative); UTC Nitrate,Urine Negative (Negative); Urobilinogen,Urine 1 EU/dl (0.2)
--- NOTE | 2024-03-08 11:18 | PC.NURSE ---
PT AMBULATORY FROM [facility] FOR FURTHER EVALUATION OF N/V/D AND ABDOMINAL PAIN
[2024-03-08 11:20] LABS: Microscopic, Urine URINE MICROSCOPIC (MICROSCOPIC)
[2024-03-08 11:22] LABS: Coronavirus 19, PCR Not Detected (NotDetected); Influenza A, PCR Not Detected (NotDetected); Influenza B, PCR Not Detected (NotDetected)
[2024-03-08 11:23] LABS: Basophils % 0.5 % (0.1-2.0); Eosinophils # 0.4 K/mm3 (0.0-0.4); Eosinophils % 4.9 % (0.1-12.0); Hematocrit 38.2 % (37.0-47.0); Hemoglobin 12.2 g/dL (12.2-16.2); Lymphocytes # 2.4 K/mm3 (0.7-4.5); Lymphocytes % 31.5 % (10-50); Mean Corpuscular HGB Conc 31.9 g/dL (31.8-35.4); Mean Corpuscular Hemoglobin 26.2 pg (27.0-31.2); Mean Platelet Volume 9.6 fl (7.4-10.4); Monocytes # 0.7 K/mm3 (0.1-1.0); Monocytes % 9.2 % (1.7-9.3); Neutrophils % 53.5 % (37.0-80.0); Platelet Count 416 K/mm3 (142-424); Red Blood Count 4.66 M/mm3 (4.20-5.40); Red Cell Distribution Width 14.6 % (11.5-17.5); White Blood Count 7.5 K/mm3 (4.8-10.8)
[2024-03-08 11:23] LABS: Appearance,Urine CLOUDY (Clear); Blood, Urine Negative (Negative); Color,Urine YELLOW (Yellow); Glucose,Urine (UA) Negative (Negative); Ketones,Urine Negative (Negative); Leukocyte Esterase,Urine 1+ (Negative); Nitrate,Urine Negative (Negative); Protein,Urine TRACE (Negative); Specific Gravity, Urine >= 1.030 (1.005-1.030); Urobilinogen,Urine 0.2 EU/dl (0.2)
[2024-03-08 11:30] LABS: Bilirubin,Urine 1+ (Negative)
--- NOTE | 2024-03-08 11:30 | PC.NURSE ---
PT UNABLE TO PROVIDE STOOL SPECIMEN, CALL LIGHT WITHIN REACH. INSTRUCTED TO CALL FOR STAFF ASSISTANCE IF SHE CAN
[2024-03-08 11:33] LABS: Alanine Aminotransferase 33 U/L (12-78); Albumin Level 4.4 g/dl (3.5-5.0); Albumin/Globulin Ratio 1.4 (1.1-1.8); Alkaline Phosphatase 102 U/L (38-126); Anion Gap 14.7 mEq/L (5-15); Aspartate Amino Transferase 74 U/L (14-36); Bilirubin,Total 0.3 mg/dl (0.2-1.3); Blood Urea Nitrogen 4 mg/dl (7-17); Calcium 9.7 mg/dl (8.4-10.2); Carbon Dioxide 28 mmol/L (22.0-30.0); Chloride 103 mmol/L (98-107); Creatinine Clearance Estimated 98 mL/min (50-200); Estimated Glomerular Filt Rate 103 ml/min (>60); GFR (African American) 124 ML/MIN (>60); Globulin 3.1 g/dL (1.3-3.2); Glucose 108 mg/dl (74-100); Lipase 71 U/L (23-300); Potassium 3.7 mmoL/L (3.5-5.1); Sodium 142 mmol/L (136-145); Total Protein,Serum 7.5 g/dl (6.3-8.2)
--- NOTE | 2024-03-08 11:43 | CT_ITS ---
FINAL REPORT TECHNIQUE: After the administration of intravenous contrast, axial images were obtained through the abdomen and pelvis by computed tomography. The study was performed with techniques to keep radiation dose as low as reasonably achievable, (ALARA). Individual dose reduction techniques using automated exposure control or adjustment of mA and/or kV according to the patient's size were employed. CLINICAL HISTORY: RLQ pain/n/v, appendectomy 3 weeks ago COMPARISON: 03/02/2024 FINDINGS: Abdomen: The lung bases are clear. There is moderate fatty infiltration of the liver. The gallbladder is absent. The spleen, pancreas, adrenals and kidneys appear unremarkable. The aorta is normal in caliber. There is no free fluid or adenopathy. Pelvis: There are postoperative changes in the right lower quadrant. No significant fluid collection is identified. The uterus is anteverted. The urinary bladder is decompressed. IMPRESSION: No evidence of postoperative complications. Reviewed, Interpreted and Dictated by Torin Tam MD Transcribed by Gillian Epps Authenticated and [facility]
--- NOTE | 2024-03-08 11:45 | HMH.EDGENADL ---
Discharge Plan Disposition Patient Disposition: Home, Self-Care Condition: Good Prescriptions Prescriptions: New ondansetron 4 mg tablet,disintegrating 4 mg PO Q8H PRN (Reason: nausea and vomiting) 4 Days Qty: 12 0RF No Action [facility] 10 billion cell -200 mg capsule, sprinkle PO Patient Comments: TAKE TWO CAPSULES BY MOUTH EVERY DAY FOR 10 DAYS acetaminophen 325 mg capsule 650 mg PO Q6H PRN (Reason: fever or pain) Qty: 60 0RF ibuprofen 600 mg tablet 600 mg PO Q6H PRN (Reason: pain) Qty: 60 0RF promethazine 25 mg tablet 25 mg PO Q6H PRN (Reason: nausea and vomiting) Qty: 20 0RF clonidine HCl 0.1 mg tablet 0.1 mg PO DAILY Patient Comments: TAKE ONE TABLET BY MOUTH AT BEDTIME lamotrigine 200 mg tablet 200 mg PO DAILY atorvastatin 10 mg tablet 10 mg PO HS Patient Comments: TAKE ONE TABLET BY MOUTH AT BEDTIME sertraline 100 mg tablet 50 mg PO DAILY Patient Comments: TAKE 1 AND 1/2 TABLETS BY MOUTH EVERY DAY omeprazole 40 mg capsule,delayed release(DR/EC) 40 mg PO BID Patient Comments: TAKE ONE CAPSULE BY MOUTH TWICE DAILY BEFORE meals hydroxyzine HCl 25 mg tablet 25 mg PO HS Patient Comments: TAKE ONE TABLET BY MOUTH AT BEDTIME metformin 500 mg tablet extended release 24 hr 500 mg PO BIDWMEAL Patient Comments: TAKE ONE TABLET BY MOUTH TWICE DAILY metoprolol tartrate 25 mg tablet 12.5 mg PO BID Patient Comments: TAKE 1/2 TABLET BY MOUTH TWICE DAILY melatonin 5 mg tablet 5 mg PO HS nitrofurantoin monohyd/m-cryst 100 mg capsule 100 mg PO BID 5 Days Qty: 10 0RF Rx Instructions: must administer with a meal/food Referrals Follow up/Referrals: Provider,Referral, MD [Primary Care Provider] - See instructions Activity Restrictions/Add. Instructions Additional Instructions/Restrictions: You were evaluated in the emergency department today. Please apple picker your prescriptions at the pharmacy and take as needed for symptoms. Make sure you stay hydrated. Eat a bland diet until your symptoms have resolved. Follow-up outpatient with surgery as scheduled. Keep your wounds clean and dry. Return to the emergency department for new or worsening symptoms. Clinical Impressions Clinical Impression: Nausea, vomiting and diarrhea Stand Alone Forms Stand Alone Forms: Work/School Release Instructions Patient Instructions: DI for Diarrhea and Traveler's Diarrhea -- Adult, DI for Nausea -- Adult Print Language Print Language: [place]i Discharge ED Provider: Anali Rojo General Adult HPI General Chief complaint: Nausea/Vomiting/Diarrhea Stated complaint: dizzy, lightheaded, nausea Time Seen by Provider: 03/08/24 10:43 Mode of Arrival: Ambulatory Source of Information: Patient Limitations: No Limitations Description of Symptoms (Recalled from ER Triage Doc. by RN): pt presents to ED form [facility] for evaluation of diarrhea, nausea, vomitting. pt was being seen at surgeons office for post op follow up. pt was sent to [facility] for workup. History of Present Illness HPI narrative: This patient is a 24-year-old female with a history of GERD, IBS, PTSD, autism, prediabetes, and morbid obesity presenting to the emergency department for evaluation with concern for right lower quadrant abdominal pain, nausea, vomiting, and diarrhea. Emesis is nonbloody and nonbilious. She resides at [facility]. Patient states that symptoms started on Wednesday 4 days ago. She did have an appendectomy 02/15/2024 with evaluation here 03/02/2023 with concern for possible wound dehiscence, but followed up today with general surgery at which point skin had minimal dehiscence without concern for infection. She was sent down for further evaluation of abdominal pain, nausea, vomiting, and diarrhea. Of note, she currently is being treated for urinary tract infection with oral Macrobid. She initially went to [facility], where urinalysis was positive for leukocyte esterase. She was sent over here for further evaluation and management given concerns for abdominal pain. Related Data Home Medications ?Medication ?Instructions ?Recorded ?Confirmed atorvastatin 10 mg tablet 10 mg PO HS 02/15/24 03/08/24 clonidine HCl 0.1 mg tablet 0.1 mg PO DAILY 02/15/24 03/08/24 hydroxyzine HCl 25 mg tablet 25 mg PO HS 02/15/24 03/08/24 lamotrigine 200 mg tablet 200 mg PO DAILY 02/15/24 03/08/24 melatonin 5 mg tablet 5 mg PO HS 02/15/24 03/08/24 metformin 500 mg tablet,extended 500 mg PO BIDWMEAL 02/15/24 03/08/24 release 24 hr metoprolol tartrate 25 mg tablet 12.5 mg PO BID 02/15/24 03/08/24 omeprazole 40 mg capsule,delayed 40 mg PO BID 02/15/24 03/08/24 release sertraline 100 mg tablet 50 mg PO DAILY 02/15/24 03/08/24 Lactobacil rhamnosus GG 10 billion cap PO 03/01/24 03/08/24 cell-inulin 200 mg sprinkle capsule [facility] Previous Rx's ?Medication ?Instructions ?Recorded acetaminophen 325 mg capsule 650 mg (2 x 325 mg) PO Q6H PRN 02/18/24 fever or pain #60 caps ibuprofen 600 mg tablet 600 mg PO Q6H PRN pain #60 tabs 02/18/24 promethazine 25 mg tablet 25 mg PO Q6H PRN nausea and 02/18/24 vomiting #20 tabs nitrofurantoin 100 mg PO BID 5 days #10 caps 03/02/24 monohydrate/macrocrystals 100 mg capsule ondansetron 4 mg disintegrating 4 mg PO Q8H PRN nausea and 03/08/24 tablet vomiting 4 days #12 tabs Allergies Allergy/AdvReac Type Severity Reaction Status Date / Time No Known Allergies Allergy Verified 03/08/24 10:06 [facility] Disclaimer: The information contained in this section may have been updated after the patient was seen, as this information can be updated by other users. Medical History Autism Morbid obesity Prediabetes Sleep apnea GERD (gastroesophageal reflux disease) Irritable bowel syndrome PTSD (post-traumatic stress disorder) Surgical History History of wisdom tooth extraction History of esophagogastroduodenoscopy (EGD) History of colonoscopy History of adenoidectomy History of appendectomy History of laparoscopic cholecystectomy Social History Smoking Status: Never smoker alcohol intake: never substance use type: other details: Very rarely current occupational status: unemployed Travel in the last 8 weeks: None marital status: single physical activity: none Have you lived/traveled outside [place] in past 30 days?: No Contact w/someone who lives/traveled outside US past 30 days?: No Exposure to someone with infectious disease in past 14 days?: No Do you have a fever (greater than 100.4 F or 38 C)?: No Have you tested positive for COVID-19: No Exposed to someone with COVID-19 in past 14 days?: No Do you have a sore throat?: No Do you have a cough?: No Do you have any weakness?: Yes Do you have any diarrhea?: Yes Are you experiencing any unusual bleeding?: No Do you have any muscle aches/pain?: No Do you have any abdominal pain?: No Are you experiencing loss of taste or smell?: No Other Medical History Have you received the Flu Vaccine for this season: No Have you received the Pneumonia Vaccine: No ROS Obtained: Yes All systems reviewed & no additional complaints except as documented Physical Exam General General appearance: alert and in no apparent distress Head Head exam: atraumatic and normocephalic Eye Eye exam: Present normal appearance, PERRL and EOMI ENT ENT exam: Present normal exam, normal oropharynx, mucous membranes moist and normal external ear exam Neck Neck exam: Present normal inspection, full ROM and trachea midline; Absent tenderness Chest Chest inspection: Present normal inspection and symmetric chest wall rise; Absent tenderness Respiratory Respiratory exam: Present normal lung sounds bilaterally; Absent respiratory distress, wheezes, stridor or accessory muscle use Cardiovascular Cardiovascular exam: Present regular rate and normal rhythm Abdominal Exam Abdominal exam: Present soft and tenderness (Right lower quadrant); Absent distention, guarding, rebound or rigidity Comment: Incisions look good with no surrounding redness, warmth, induration. She has minimal skin separation at the umbilical incision site which is improved from prior exam. Extremities Exam Extremities exam: Present normal inspection, full ROM and normal capillary refill; Absent tenderness or edema Back Exam Back exam: Present normal inspection and full ROM; Absent tenderness Neurological Exam Neurological exam: Present alert, oriented X3, CN II-XII intact and normal gait; Absent motor sensory deficit Psychiatric Psychiatric exam: Present normal affect and normal mood Skin Skin exam: Present warm and dry Medical Decision Making Medical Records Medical records reviewed: Yes I reviewed the patient's medical records. Screening: Per USPSTF and CDC recommendations, given the prevalence of disease in our region, it is our hospital?s policy to screen for HIV and viral Hepatitis for all patients aged 18 and over and those with ongoing risk factors. [place] Inquiry Pt receiving controlled substance: No Vital Signs: 03/08/24 10:30 03/08/24 11:20 03/08/24 11:54 Temperature 98.1 F 98.3 F Temperature Source Oral Oral Pulse Rate 64 Pulse Rate [Left Brachial] 83 76 Respiratory Rate 20 15 Blood Pressure 126/87 Blood Pressure [Left Arm] 116/86 126/87 Blood Pressure Mean Blood Pressure Mean [Left Arm] 96 100 Blood Pressure Source Blood Pressure Source [Left Arm] Automatic Cuff Blood Pressure Position Blood Pressure Position [Left Arm] Sitting 02 Sat by Pulse Oximetry 97 98 96 Oxygen Delivery Method Room Air Room Air Room Air 03/08/24 12:00 03/08/24 13:00 03/08/24 13:30 Temperature Temperature Source Pulse Rate 60 60 61 Pulse Rate [Left Brachial] Respiratory Rate Blood Pressure 109/72 L 111/69 110/74 Blood Pressure [Left Arm] Blood Pressure Mean 84 Blood Pressure Mean [Left Arm] Blood Pressure Source Blood Pressure Source [Left Arm] Blood Pressure Position Blood Pressure Position [Left Arm] 02 Sat by Pulse Oximetry 99 98 98 Oxygen Delivery Method Room Air Room Air 03/08/24 14:00 03/08/24 14:30 03/08/24 14:45 Temperature 98.0 F Temperature Source Oral Pulse Rate 67 67 67 Pulse Rate [Left Brachial] Respiratory Rate 16 Blood Pressure 113/73 109/79 L 109/79 L Blood Pressure [Left Arm] Blood Pressure Mean Blood Pressure Mean [Left Arm] Blood Pressure Source Automatic Cuff Blood Pressure Source [Left Arm] Blood Pressure Position Sitting Blood Pressure Position [Left Arm] 02 Sat by Pulse Oximetry 99 97 Oxygen Delivery Method Room Air Room Air Room Air Lab Data Lab results reviewed: Yes I reviewed the patient's lab results. Lab Results 03/08/24 10:46: Urine Color Dark yellow 03/08/24 10:46: Urine Color Yellow, Urine Appearance Cloudy 03/08/24 10:46: Urine Appearance Cloudy, Urine pH 5.5 03/08/24 10:46: Urine pH 6.0, Ur Specific [place] 1.030 03/08/24 10:46: Ur Specific [place] >= 1.030, Urine Protein 1+ 03/08/24 10:46: Urine Protein Trace, Urine Glucose (UA) Negative 03/08/24 10:46: Urine Glucose (UA) Negative, Urine Ketones Negative 03/08/24 10:46: Urine Ketones Negative, Urine Blood Trace 03/08/24 10:46: Urine Blood Negative, Urine Nitrate Negative 03/08/24 10:46: Urine Nitrate Negative, Urine Bilirubin 1+ A 03/08/24 10:46: Urine Bilirubin 1+ A, Urine Urobilinogen 1 03/08/24 10:46: Urine Urobilinogen 0.2, Ur Leukocyte Esterase 1+ A 03/08/24 10:46: Ur Leukocyte Esterase 1+ A, Urine RBC None, Urine WBC 3-5, Ur Squamous Epith Cells Tntc, Amorphous Sediment 3+, Urine Bacteria 4+ 03/08/24 11:13: WBC 7.5, RBC 4.66, Hgb 12.2, Hct 38.2, MCV 82.0, MCH 26.2 L, MCHC 31.9, RDW 14.6, Plt Count 416, MPV 9.6, Neut % (Auto) 53.5, Lymph % (Auto) 31.5, [place] % (Auto) 9.2, Eos % (Auto) 4.9, Baso % (Auto) 0.5, Neut # (Auto) 4.0, Lymph # (Auto) 2.4, [place] # (Auto) 0.7, Eos # (Auto) 0.4, Baso # (Auto) 0.0, Sodium 142, Potassium 3.7, Chloride 103, Carbon Dioxide 28, Anion Gap 14.7, BUN 4 L, Creatinine 0.70, Estimated Creat Clear 98, Estimated GFR 103, Est GFR ( Amer) 124, Glucose 108 H, Calcium 9.7, Magnesium 1.7, Total Bilirubin 0.3, AST 74 H, ALT 33, Alkaline Phosphatase 102, Total Protein 7.5, Albumin 4.4, Globulin 3.1, Albumin/Globulin Ratio 1.4, Lipase 71, Serum HCG, Qual Negative, HCV Ab VAMSI w/Rflx PCR Qn Negative, HIV Ag/Ab Combo Qual Negative 03/08/24 11:19: SARS-CoV-2 (PCR) Not detected, Influenza A Untype (PCR) Not detected, Influenza Type B (PCR) Not detected 03/08/24 11:13 03/08/24 11:13 Orders (Tests/Meds): ED MEDICATIONS Discontinued Medications Generic Name Dose Route Start Last Admin Trade Name Freq PRN Reason Stop Dose Admin Iopamidol 75 ml 03/08/24 12:30 03/08/24 12:33 Iopamidol-370 (76%);100ml Bottle IV 03/08/24 12:31 75 ml ONCE ONE Administration Ondansetron HCl 4 mg 03/08/24 11:45 03/08/24 11:49 Ondansetron 4mg/2ml Vial IV 03/08/24 11:46 4 mg ONCE ONE Administration Sodium Chloride 10 ml 03/08/24 12:30 03/08/24 12:33 Sodium Chloride 0.9% 10ml Syr (Rad Only) IV 03/08/24 12:31 10 ml ONCE ONE Administration ORDERS Category Date Time Status CT abdomen pelvis w con Stat Cat Scan 03/08/24 11:43 Completed Complete Blood Count Auto Diff Stat Lab 03/08/24 11:13 Completed Comprehensive Metabolic Panel Stat Lab 03/08/24 11:13 Completed HIV Combo Stat Lab 03/08/24 11:13 Completed Hepatitis C Ab Qual. W/ RFX Stat Lab 03/08/24 11:13 Completed Lipase Stat Lab 03/08/24 11:13 Completed MAG [Magnesium] Stat Lab 03/08/24 11:13 Completed Rapid PCR Covid and Flu A/B Stat Lab 03/08/24 11:19 Completed Serum [HCG Qualitative, Serum] Stat Lab 03/08/24 11:13 Completed UA [Urinalysis and Microscopic] Stat Lab 03/08/24 10:46 Completed Urine Culture Stat Micro 03/08/24 10:46 Received Medical Decision Narrative: In summary, this patient is a 24-year-old female presenting to the Emergency Department for evaluation of right lower quadrant abdominal pain, nausea, vomiting, and diarrhea. She had recent appendectomy. Differential diagnoses considered include but are not limited to viral syndrome, gastroenteritis, colitis, postoperative infection, urinary tract infection, pyelonephritis. Ruling out the most morbid conditions drove assessment. I reviewed patient's past medical records and noted recent appendectomy as well as evaluation here 03/02/2024 with wound concerns. Also noted evaluation today by general surgery. Please see HPI for further details. On exam, the patient is sitting upright in no acute distress with normal vital signs on cardiac telemetry. She has minimal right lower quadrant tenderness to palpation to deep palp patient but no rebound or guarding. Incisions look good. Workup included CBC, CMP, lipase, urinalysis, CT abdomen pelvis with IV contrast, and urine culture. She was given IV Zofran for symptomatic improvement.. I independently interpreted CT scan prior to the radiologist read and noted no obvious pelvic fluid collection or stranding. Please see their read for final interpretation. Labs were obtained that demonstrated reassuring CBC with no significant leukocytosis or anemia, reassuring chemistry with no evidence of significant dehydration. AST is mildly elevated but other liver enzymes and bilirubin are fine.. Urine is grossly contaminated, but she is not currently having urinary symptoms. Culture was sent just in case, but she is already on antibiotic as an outpatient. She was given instruction to continue taking this. On reassessment, patient had good improvement after administration of intervention above and she is able to tolerate oral intake after administration of Zofran. Given this, I feel she is appropriate for discharge back to [facility] with instruction for supportive management, prescription for Zofran, and strict return precautions. She was discharged after all questions were answered. Critical Care Critical Care Time Critical Care Time: No
[2024-03-08 11:46] LABS: Amorphous Sediment,Urine 3+ /lpf; Bacteria,Urine 4+ /lpf; Squamous Epithelial Cell,Urine TNTC #/hpf (0-5)
[2024-03-08] MEDS: ONDANSETRON 4MG/2ML VIAL 4 MG IV (11:49)
[2024-03-08 11:57] LABS: Magnesium 1.7 mg/dl (1.6-2.3)
[2024-03-08 12:01] LABS: HCG Qualitative, Serum Negative (Negative)
--- NOTE | 2024-03-08 12:05 | PC.NURSE ---
PT SITTING UP IN BED TEXTING ON PHONE, DENIES NEEDS AT THIS TIME. CALL LIGHT WITHIN REACH
--- NOTE | 2024-03-08 12:22 | PC.NURSE ---
PT TO CT
[2024-03-08] MEDS: IOPAMIDOL-370 (76%);100ML BOTTLE 75 ML IV (12:33)
[2024-03-08] MEDS: SODIUM CHLORIDE 0.9% 10ML SYR (RAD ONLY) 10 ML IV (12:33)
--- NOTE | 2024-03-08 12:42 | PC.NURSE ---
PT RETURNED FROM CT
[2024-03-08 13:06] LABS: HIV Combo NEGATIVE (Negative)
[2024-03-08 13:14] LABS: Hepatitis C Ab Qual. W/ RFX NEGATIVE (Negative)
--- NOTE | 2024-03-08 13:38 | PC.NURSE ---
ROUNDED ON PT, STATES UNABLE TO PROVIDE STOOL SAMPLE. NO NEEDS AT THIS TIME. CALL LIGHT WITHIN REACH
--- NOTE | 2024-03-08 14:18 | PC.NURSE ---
PT PROVIDED SPRITE TO DRINK
--- NOTE | 2024-03-08 14:42 | PC.NURSE ---
[facility] NOTIFIED OF PT STATUS
--- NOTE | 2024-03-08 14:53 | PC.NURSE ---
SPOKE WITH ARSALAN AT [facility], NOTIFIED PT IS READY FOR DISCHARGE
== END 2024-03-08 15:15 | disposition home or self-care (01) ==
LOC: UTC 11:02 → ER 11:10
PROVIDERS: Nurse Practitioner Family; Emergency Provider Emergency Medicine
DX: R11.2 Nausea with vomiting, unspecified (principal); R19.7 Diarrhea, unspecified; R42 Dizziness and giddiness; R10.31 Right lower quadrant pain; R10.32 Left lower quadrant pain
CPT/HCPCS: 74177; 80053; 81001; 81003; 83690; 83735; 84703; 85025; 86803; 87086; 87088; 87186; 87389; 87636; 96374; 99285; J2405; Q9967

== ENCOUNTER 2024-05-07 03:33 | Emergency (ER) | payer MEDICARE, MEDICAID, SELFPAY ==
[2024-05-07 03:33] VITALS: BP 124/83; PULSE 62; RESP 20; TEMP 36.9; O2SAT 97; BMI 36.0
[2024-05-07] MEDS: IBUPROFEN 600 MG TABLET PO (03:39)
[2024-05-07 03:40] VITALS: BP 123/85; PULSE 72; O2SAT 97
[2024-05-07 03:50] VITALS: BP 120/84; PULSE 68; O2SAT 96
[2024-05-07 04:00] VITALS: BP 120/84; PULSE 71; PULSE 78; RESP 20; TEMP 36.8; O2SAT 96; O2SAT 97
--- NOTE | 2024-05-07 06:21 | ED_ITS ---
Discharge Plan Disposition Patient Disposition: Home, Self-Care Condition: Good Prescriptions Prescriptions: New ibuprofen 600 mg tablet 600 mg PO Q8H PRN (Reason: pain) Qty: 14 0RF No Action [facility] 10 billion cell -200 mg capsule, sprinkle PO Patient Comments: TAKE TWO CAPSULES BY MOUTH EVERY DAY FOR 10 DAYS sulfamethoxazole-trimethoprim 800-160 mg tablet 1 tab PO BID Qty: 14 0RF acetaminophen 325 mg capsule 650 mg PO Q6H PRN (Reason: fever or pain) Qty: 60 0RF ibuprofen 600 mg tablet 600 mg PO Q6H PRN (Reason: pain) Qty: 60 0RF promethazine 25 mg tablet 25 mg PO Q6H PRN (Reason: nausea and vomiting) Qty: 20 0RF clonidine HCl 0.1 mg tablet 0.1 mg PO DAILY Patient Comments: TAKE ONE TABLET BY MOUTH AT BEDTIME lamotrigine 200 mg tablet 200 mg PO DAILY atorvastatin 10 mg tablet 10 mg PO HS Patient Comments: TAKE ONE TABLET BY MOUTH AT BEDTIME sertraline 100 mg tablet 50 mg PO DAILY Patient Comments: TAKE 1 AND 1/2 TABLETS BY MOUTH EVERY DAY omeprazole 40 mg capsule,delayed release(DR/EC) 40 mg PO BID Patient Comments: TAKE ONE CAPSULE BY MOUTH TWICE DAILY BEFORE meals hydroxyzine HCl 25 mg tablet 25 mg PO HS Patient Comments: TAKE ONE TABLET BY MOUTH AT BEDTIME metformin 500 mg tablet extended release 24 hr 500 mg PO BIDWMEAL Patient Comments: TAKE ONE TABLET BY MOUTH TWICE DAILY metoprolol tartrate 25 mg tablet 12.5 mg PO BID Patient Comments: TAKE 1/2 TABLET BY MOUTH TWICE DAILY melatonin 5 mg tablet 5 mg PO HS nitrofurantoin monohyd/m-cryst 100 mg capsule 100 mg PO BID 5 Days Qty: 10 0RF Rx Instructions: must administer with a meal/food ondansetron 4 mg tablet,disintegrating 4 mg PO Q8H PRN (Reason: nausea and vomiting) 4 Days Qty: 12 0RF Referrals Follow up/Referrals: Liz Nix APRN [Referring] - See instructions (Zaclos duc patient, please re- evaluate L thumb pain. Likely inflammatory. ) Activity Restrictions/Add. Instructions Additional Instructions/Restrictions: You were evaluated in the ER and are appropriate for discharge at this time. Wear the brace at all times unless showering or bathing. Wear the brace for the next 7 to 10 days until symptoms improve. Take the prescribed ibuprofen 3 times daily for pain. Eat a snack and drink water each time you take this medication. See your primary care doctor for reevaluation. Return to the ER with new, worsening, or otherwise concerning symptoms. Clinical Impressions Clinical Impression: Pain of left thumb, De Quervain's tenosynovitis, left Print Language Print Language: Serbian Discharge ED Provider: Adalberto Martin General Adult HPI General Chief complaint: PAIN Stated complaint: Left thumb/arm pain Time Seen by Provider: 05/07/24 03:33 Mode of Arrival: EMS Source of Information: Patient Description of Symptoms (Recalled from ER Triage Doc. by RN): Pt states her left thumb has been painful and swollen for a month Pain keeping her awake tonight History of Present Illness HPI narrative: 24-year-old female presents to the ER with complaints of left thumb pain that has been ongoing for a month. She came to the ER tonight because it was keeping her awake. Patient reports she has not taken any medications for her symptoms. She has not had any specific injury to it. She states she has pain in the left thumb that radiates into the wrist and forearm. She has no numbness, tingling, or weakness. No history of injury to this area. Patient is a [facility] and presented via EMS. Review of records demonstrates patient has autism, prediabetes, GERD, PTSD. Related Data Home Medications ?Medication ?Instructions ?Recorded ?Confirmed atorvastatin 10 mg tablet 10 mg PO HS 02/15/24 03/15/24 clonidine HCl 0.1 mg tablet 0.1 mg PO DAILY 02/15/24 03/15/24 hydroxyzine HCl 25 mg tablet 25 mg PO HS 02/15/24 03/15/24 lamotrigine 200 mg tablet 200 mg PO DAILY 02/15/24 03/15/24 melatonin 5 mg tablet 5 mg PO HS 02/15/24 03/15/24 metformin 500 mg tablet,extended 500 mg PO BIDWMEAL 02/15/24 03/15/24 release 24 hr metoprolol tartrate 25 mg tablet 12.5 mg PO BID 02/15/24 03/15/24 omeprazole 40 mg capsule,delayed 40 mg PO BID 02/15/24 03/15/24 release sertraline 100 mg tablet 50 mg PO DAILY 02/15/24 03/15/24 Lactobacil rhamnosus GG 10 billion cap PO 03/01/24 03/15/24 cell-inulin 200 mg sprinkle capsule (FitfullyAPProtect) Previous Rx's ?Medication ?Instructions ?Recorded acetaminophen 325 mg capsule 650 mg (2 x 325 mg) PO Q6H PRN 02/18/24 fever or pain #60 caps ibuprofen 600 mg tablet 600 mg PO Q6H PRN pain #60 tabs 02/18/24 promethazine 25 mg tablet 25 mg PO Q6H PRN nausea and 02/18/24 vomiting #20 tabs nitrofurantoin 100 mg PO BID 5 days #10 caps 03/02/24 monohydrate/macrocrystals 100 mg capsule ondansetron 4 mg disintegrating 4 mg PO Q8H PRN nausea and 03/08/24 tablet vomiting 4 days #12 tabs sulfamethoxazole 800 1 tab PO BID #14 tabs 03/30/24 mg-trimethoprim 160 mg tablet ibuprofen 600 mg tablet 600 mg PO Q8H PRN pain #14 tabs 05/07/24 Allergies Allergy/AdvReac Type Severity Reaction Status Date / Time No Known Allergies Allergy Verified 03/15/24 10:57 [facility] Disclaimer: The information contained in this section may have been updated after the patient was seen, as this information can be updated by other users. Medical History Autism Morbid obesity Prediabetes Sleep apnea GERD (gastroesophageal reflux disease) Irritable bowel syndrome PTSD (post-traumatic stress disorder) Surgical History History of wisdom tooth extraction History of esophagogastroduodenoscopy (EGD) History of colonoscopy History of adenoidectomy History of appendectomy History of laparoscopic cholecystectomy Social History Smoking Status: Current every day smoker alcohol intake: never substance use type: other details: Very rarely current occupational status: unemployed Travel in the last 8 weeks: None marital status: single physical activity: none Other Medical History Have you received the Flu Vaccine for this season: No Have you received the Pneumonia Vaccine: No ROS Obtained: Yes Systems reviewed as appropriate & no additional complaints except as documented Per HPI Physical Exam General General appearance: alert, in no apparent distress and obese Head Head exam: atraumatic and normocephalic Eye Eye exam: Present PERRL and EOMI ENT ENT exam: Present mucous membranes moist Neck Neck exam: Present normal inspection and full ROM Chest Chest inspection: Present symmetric chest wall rise Respiratory Respiratory exam: Absent respiratory distress or stridor Cardiovascular Cardiovascular exam: Present regular rate and normal rhythm Extremities Exam Extremities exam: Present tenderness (Tenderness to palpation of the extensor tendon of the left thumb especially over the wrist) and other (Positive Bing test of left thumb; neurovascularly intact); Absent full ROM (Flexion of the left thumb limited secondary to pain) or joint swelling Neurological Exam Neurological exam: Present alert and oriented X3; Absent motor sensory deficit Psychiatric Psychiatric exam: Present normal affect and normal mood Skin Skin exam: Present warm and dry Medical Decision Making Medical Records Medical records reviewed: Yes I reviewed the patient's medical records. Screening: Per USPSTF and CDC recommendations, given the prevalence of disease in our region, it is our hospital?s policy to screen for HIV and viral Hepatitis for all patients aged 18 and over and those with ongoing risk factors. MR Comment: Patient's medical records demonstrates that orders for patient's care at [facility] have been placed by Liz Nix. Patient believes this is her PCP at [facility] Inquiry Pt receiving controlled substance: No Vital Signs: 05/07/24 03:33 05/07/24 03:40 05/07/24 03:50 Temperature 98.4 F Temperature Source Oral Pulse Rate 72 68 Pulse Rate [Right Brachial] 62 Respiratory Rate 20 Blood Pressure 123/85 120/84 Blood Pressure [Right Arm] 124/83 Blood Pressure Mean [Right Arm] 96 Blood Pressure Source Blood Pressure Source [Right Arm] Automatic Cuff Blood Pressure Position Blood Pressure Position [Right Arm] Sitting 02 Sat by Pulse Oximetry 97 97 96 Oxygen Delivery Method Room Air Room Air Room Air 05/07/24 04:00 05/07/24 04:00 Temperature 98.2 F Temperature Source Oral Pulse Rate 78 71 Pulse Rate [Right Brachial] Respiratory Rate 20 Blood Pressure 120/84 120/84 Blood Pressure [Right Arm] Blood Pressure Mean [Right Arm] Blood Pressure Source Automatic Cuff Blood Pressure Source [Right Arm] Blood Pressure Position Sitting Blood Pressure Position [Right Arm] 02 Sat by Pulse Oximetry 96 Oxygen Delivery Method Room Air Room Air Orders (Tests/Meds): ED MEDICATIONS Discontinued Medications Generic Name Dose Route Start Last Admin Trade Name Torrie PRN Reason Stop Dose Admin Ibuprofen 600 mg 05/07/24 03:37 05/07/24 03:39 Ibuprofen 600 Mg Tablet PO 05/07/24 03:38 600 mg ONCE ONE Administration Medical Decision Narrative: In summary, 24-year-old female presents via EMS from [facility] for left thumb pain for the last month. Differential diagnosis includes but is not limited to bony injury such as fracture or dislocation though I have no evidence for this clinically and patient has had no traumatic injury. I do not believe x-ray imaging is indicated. Also consider the possibility of a tendinitis/tendinopath y, considered possible radiculopathy pain but there is no evidence of this clinically. She has no evidence of infection or other injury clinically. Patient has positive Bing test and tenderness over the left thumb extensor tendon into the wrist, these findings are consistent with de Quervain's tenosynovitis. Patient was placed in a removable left thumb spica splint and given instructions on using this brace. She was also provided a prescription for ibuprofen and instructions on use of anti-inflammatories. I sent a note to Liz Nix who patient believes is her PCP for close outpatient follow-up and monitoring. Patient was given instructions on continued symptomatic monitoring and management, follow-up instructions, strict return precautions for the ER. She indicated understanding and the patient was discharged in stable condition. Critical Care Critical Care Time Critical Care Time: No
== END 2024-05-07 04:10 | disposition home or self-care (01) ==
LOC: ER 03:51
PROVIDERS: Emergency Provider Emergency Medicine
DX: M65.4 Radial styloid tenosynovitis [de Quervain] (principal); M79.645 Pain in left finger(s)
CPT/HCPCS: 99283

== ENCOUNTER 2024-09-15 21:48 | Emergency (ER) | payer MEDICARE, MEDICAID, SELFPAY ==
--- OUTSIDE RECORDS SUMMARY | 2020-05-22 09:27 | XMS_ITS | Encounter Summary ---
Author Organization [place] [address] Care Team Providers Care Gun Numberer Name Role Phone Pop Abbott MD Primary Care Provider [phone] Encounter Details Date Type Department Care Team (Latest Contact Info) Description 05/22/2020 9:27 AM EDT Hospital Encounter [facility] Referral Lab [address] [place] [phone] Julissa Hamilton, TACOS [address] [place] [address] Encounter for general adult medical examination without abnormal findings Social History Tobacco Use Types Packs/Day Years Used Date Smoking Tobacco: Never Smokeless Tobacco: Former Quit: 04/15/2023 Comments:Vaping Alcohol Use Standard Drinks/Week Comments Not Currently 2 (1 standard drink = 0.6 oz pur e alcohol) occ [facility] Utilities Answer Date Recorded In the [...] Date Recorded PHQ-2 Total Score 4 07/12/2023 [facility] - Occupational Stress Questionnaire Answer Date Recorded [...] money to get more. Never true [facility] IP Transportation Answer D ate Recorded In [...] containing alcohol? 0 07/12/2023 3:42 AM EDT rTi Diana, R N How many drinks containing [...] 01/01/2024 8:19 PM Yaima Aviles RN * [place] Suicide Severity Rating Scale (Q shift for [...] 06/06/2020 3:01 PM EDT [facility] MPV 10.1 8.8 - 12.5 fL 06/06/2020 3:01 PM EDT [facility] Neut Percent 62.3 % 06/06/2020 3:01 PM EDT [facility] Comment:Neutrophils equals s egs plus bands Imm Gran% 0.7 % 06/06/2020 3:01 PM EDT [facility] Comment:Automated count of m etamyelocytes, myelocytes and promyelocytes. Lymph Percent 24.4 % 06/06/2020 3:01 PM EDT [facility] Elmore Percent 9.2 % 06/06/2020 3:01 PM EDT [facility] Eos Percent 2.7 % 06/06/2020 3:01 PM EDT [facility], [facility] Baso Percent 0.7 % 06/06/2020 3:01 PM EDT [facility], [facility] Neut # 6.7(H) 1.6 - 6.1 x10(3)/[facility] 06/06/2020 3:01 PM EDT [facility] Comment:Neutrophils equals s egs plus bands IMMGRAN# 0.1 0.0 - 0.1 x10(3)/[facility] 06/06/2020 3:01 PM EDT [facility] Comment:Automated count of m etamyelocytes, myelocytes and promyelocytes. An absolute IG <0.1 is reported as 0.0. Lymph # 2.6 1.2 - 3.9 x10(3)/[facility] 06/06/2020 3:01 PM EDT [facility] Elmore # 1.0(H) 0.3 - 0.9 x10(3)/[facility] 06/06/2020 3:01 PM EDT [facility] Eos# 0.3 0.0 - 0.5 x10(3)/[facility] 06/06/2020 3:01 PM EDT [facility] Baso # 0.1 0.0 - 0.1 x10(3)/[facility] 06/06/2020 3:01 PM EDT [facility] Blood Venipuncture / Unknown 06/06/2020 9:29 AM EDT 06/06/2020 9:29 AM EDT us Julissa Hamilton NP HEMATOLOGY ORDERABLES Final Resu lt [facility] 1 MED[address] [facility] , [address] [place] [phone] * (ABNORMAL) COMPREHENSIVE METABOLIC PANEL (06/06/2020 9:29 [...] U/L 06/06/2020 4:32 PM EDT [facility] Alk Phos 82 36 - 123 U/L 06/06/2020 4:32 PM EDT [facility], [facility] GFR Afr Am 121 >=60 mL/min/1.7 3 m2 06/06/2020 4:32 PM EDT [facility] GFR Non Afr Am 105 >=60 mL/min/1.7 3 m2 06/06/2020 4:32 PM EDT [facility] Comment: This estimated GFR was [...] CHEMISTRY ORDERABLES Final Resul t [facility], [address], [place] [address] [facility] [address] [place] [address] * (ABNORMAL) LIPID PANEL REFLEX (06/06/2020 9:29 AM EDT) Cholesterol 202(H) <200 mg/dL 06/06/2020 4:35 PM EDT [facility] Comment: < 200 Desirable 200 - 239 Borderline High >= 240 High Triglyceride 182(H) <150 mg/dL 06/06/2020 4:35 PM EDT [facility], [facility] Comment: < 150 Normal 150 - 199 Borderline High 200 - 499 High >= 500 Very High HDL 52 >=40 mg/dL 06/06/2020 4:35 PM EDT [facility] [employer], [facility] Comment: > 60 Optimal 40 - 60 Acceptable < 40 Low LDL Direct 117(H) <100 mg/dL 06/06/2020 4:35 PM EDT [facility], [facility] Non-HDL-C Calculated 150(H) <=129 mg/dL 06/06/2020 4:35 PM EDT [facility] Comment: <130 Desirable 130-159 Above Desirable 160-189 Borderline High 190-219 High >= 220 Very High Fasting Specimen? Yes None 021 4:35 PM EDT [facility] Blood Venipuncture / Unknown 06/06/2020 9:29 AM EDT 06/06/2020 9:29 AM EDT Julissa Hamilton NP CHEMISTRY ORDERABLES Final Resul t Performing Organization Address [facility] de Phone Number [facility] [employer] , [place] [phone] [facility] [address] [place], [place] [phone] * TSH REFLEX (06/06/2020 9:29 AM EDT) TSH Reflex 2.890 0.270 - 4.200 mcIU/mL 06/06/2020 4:23 PM EDT [facility] [employer], [facility] Blood Venipuncture / Unknown 06/06/2020 9:29 AM EDT 06/06/2020 9:29 AM EDT Narrative [facility] - 06/06/2020 4:23 PM EDT Ingestion of israel doses of biotin (>5 mg/day) taken within 8 hours of drawing blood sample can interfere with this immunoassay test. us Julissa Hamilton NP CHEMISTRY ORDERABLES Final Resul t Performing Organization Address [facility] Co de Phone Number [facility] [employer] , [place] [address] * HIV AG/AB (06/06/2020 9:29 AM EDT) HIV Ag/AB Non-Reactiv e Non-Reacti ve 06/06/2020 5:20 PM EDT [facility] Blood Venipuncture / Unknown 06/06/2020 9:29 AM EDT 06/06/2020 9:29 AM EDT Julissa Hamilton NP IMMUNOLOGY ORDERABLES Final Resu lt Performing Organization Address [facility] de Phone Number [facility] [employer] [facility] [address] [facility] , [address] [place] [phone] * HEMOGLOBIN A1C (06/06/2020 9:29 AM EDT) Pathologist [facility] Hgb A1C 5.6 4.2 - 5.6 % 06/06/2020 3:47 PM EDT [facility] [employer] [facility] Est. Avg Glucose 114 mg/dL 06/06/2020 3:47 PM EDT [facility] [employer] Blood Venipuncture / Unknown 06/06/2020 9:29 AM EDT 06/06/2020 9:29 AM EDT Narrative [facility] [employer] - 06/06/2020 3:47 PM EDT REFERENCE RANGE: [...] ORDERABLES Final Resul t Performing Organization Address [facility] Co de Phone Number [facility] [employer] [facility] [address] [facility] , [place] [address] * HEPATITIS C SCREEN (06/06/2020 9:29 AM EDT) Pathologist [facility] Hep C Ab Non-Reactiv e Non-Reacti ve 06/06/2020 5:20 PM EDT [facility] [employer] [facility] Blood Venipuncture / Unknown 06/06/2020 9:29 AM EDT 06/06/2020 9:29 AM EDT Julissa Hamilton NP HEMATOLOGY ORDERABLES Final Resu lt Performing Organization Address [facility] de Phone Number [facility] [address], [place] [address] * HEPATITIS B SURFACE ANTIBODY (06/06/2020 9:29 AM EDT) Hep Bs Ab <3.08 mIU/mL 06/06/2020 5:19 PM EDT [facility] Comment: < 8.00 mIU/mL - NON REACTIVE [...] ORDERABLES Final Resu lt Performing Organization Address [facility] de Phone Number [employer] [facility] [address], [place] [address] documented in this encounter Visit [...] documented as of this encounter Care Teams Gun Numberer Relationship Specialty Start Date End Date Pop Abbott MD [address] [place] [phone] PCP - General Pediatrics-Adolescent Medicine 07/17/16 07/01/20 documented as of this encounter
--- OUTSIDE RECORDS SUMMARY | 2022-07-15 14:19 | XMS_ITS | Encounter Summary ---
Author Organization [place] [address] Care Team Providers Care [employer] Agent Name Role Phone Julissa Hamilton NP Primary Care Provider Encounter Details Date Type Department Care Team (Latest Contact Info) Description 07/15/2022 2:19 PM EDT Hospital Encounter [facility] Referral Lab 1 [place] [address] Tri Anand APRN [address] [place], [place] [id number] Encounter for general adult medical examination without abnormal findings Social History Tobacco Use Types Packs/Day Years Used Date Smoking Tobacco: Never Smokeless Tobacco: Former Quit: 04/15/2023 Comments:Vaping Alcohol Use Standard Drinks/Week Comments Not Currently 2 (1 standard drink = 0.6 oz pur e alcohol) occ [facility] Utilities Answer Date Recorded In the past 12 months has [employer], gas, oil, or water company threatened to shut off services in your home? No 07/12/2023 Overall Financial Resource Strain (CARDIA) Bertrand r Date Recorded How hard is it for you to pa y for the very basics like food, housing, medical care, and heating? Not hard at all 07/12/2023 PHQ-2 Answer Date Recorded PHQ-2 Total Score 4 07/12/2023 [facility] Occupat ional [facility] - Occupational Stress Questionnaire Answer Date [...] money to get more. Never true 07/12/2023 [facility] IP Transportation Answer D ate Recorded In [...] 01/01/2024 8:19 PM Yaima Aviles RN * [place] Suicide Severity Rating Scale (Q shift for [...] TSH REFLEX (07/27/2022 11:21 AM EDT) Pathologist [facility] TSH Reflex 0.937 0.270 - 4.200 mcIU/mL 07/27/2022 3:07 PM EDT [facility] Blood VENOUS BLOOD / Unknown Venipuncture / Unknown 07/27/2022 11:21 AM EDT 07/27/2022 11:21 AM EDT Narrative [facility] - 07/27/2022 3:07 PM EDT Ingestion of israel doses of biotin (>5 mg/day) taken within 8 hours of drawing blood sample can interfere with this immunoassay test. Tri Anand APRN CHEMISTRY ORDERABLES Final Res ult Performing Organization Address [facility]/ZIP Co de Phone Number [facility] [employer] [address] , [place] [address] * HIV AG/AB (07/27/2022 11:21 AM EDT) [facility] HIV Ag/AB Non-Reactiv e Non-Reacti ve 07/27/2022 3:40 PM EDT [facility] Blood VENOUS BLOOD / Unknown Venipuncture / Unknown 07/27/2022 11:21 AM EDT 07/27/2022 11:21 AM EDT Tri Anand APRN IMMUNOLOGY ORDERABLES Final Re sult Performing Organization Address [facility]/ZIP Co de Phone Number [facility] [address] [facility] , [place] [address] * (ABNORMAL) LIPID SCREEN (07/27/2022 11:21 AM EDT) [facility] Cholesterol 174 <200 mg/dL 07/27/2022 3:07 PM EDT [facility], [facility] Comment: < 200 Desirable 200 - 239 Borderline High >= 240 High Triglyceride 84 <150 mg/dL 07/27/2022 3:07 PM EDT [facility] LAB [facility], [facility] Comment: < 150 Normal 150 - 199 Borderline High 200 - 499 High >= 500 Very High HDL 54 >=40 mg/dL 07/27/2022 3:07 PM EDT [facility], [facility] Comment: > 60 Optimal 40 - 60 Acceptable < 40 Low LDL Calculated 104(H) <100 mg/dL 07/27/2022 3:07 PM EDT [facility], [facility] Comment: < 100 Optimal 100 - 129 Near or above optimal 130 - 159 Borderline High 160 - 189 High >= 190 Very High Non-HDL-C Calculated 120 <=129 mg/dL 07/27/2022 3:07 PM EDT [facility] [employer], [facility] Comment: <130 Desirable 130-159 Above Desirable 160-189 Borderline High 190-219 High >= 220 Very High Fasting Specimen? Yes None 023 3:07 PM EDT [facility] Blood VENOUS BLOOD / Unknown Venipuncture / Unknown 07/27/2022 11:21 AM EDT 07/27/2022 11:21 AM EDT Tri Anand APRN CHEMISTRY ORDERABLES Final Res ult [facility] [employer], [facility] [address] [facility], [address] [place] [id number] [facility] [address] [place] [address] * HEMOGLOBIN A1C (07/27/2022 11:21 AM EDT) [facility] Signature Hgb A1C 5.3 4.2 - 5.6 % 07/27/2022 3:15 PM EDT [facility], [facility] Est. Avg Glucose 105 mg/dL 07/27/2022 3:15 PM EDT [facility] [employer], [facility] Blood VENOUS BLOOD / Unknown Venipuncture / Unknown 07/27/2022 11:21 AM EDT 07/27/2022 11:21 AM EDT Narrative [facility] - 07/27/2022 3:15 PM EDT [...] ORDERABLES Final Res ult Performing Organization Address [facility] Co de Phone Number [facility] , [place] [address] * HCV ANTIBODY SCREEN W/ REFLEX (07/27/2022 11:21 AM EDT) Pathologist [facility] Hep C Ab Non-Reactiv e Non-Reacti ve 07/27/2022 3:41 PM EDT [facility] Blood VENOUS BLOOD / Unknown Venipuncture / Unknown 07/27/2022 11:21 AM EDT 07/27/2022 11:21 AM EDT Tri Anand APRN HEMATOLOGY ORDERABLES Final Re sult Performing Organization Address [facility] de Phone Number [facility] , [place] [address] * HEPATITIS B SURFACE ANTIBODY (07/27/2022 11:21 AM EDT) Hep Bs Ab 22.35 mIU/mL 07/27/2022 3:40 PM EDT [facility] Comment: < 8.00 mIU/mL - [...] ORDERABLES Final Re sult Performing Organization Address [facility] Co de Phone Number [facility] [address] [facility] , [place] [address] * HEPATIC FUNCTION PANEL (07/27/2022 [...] ORDERABLES Final Res ult Performing Organization Address [facility]/ZIP Co de Phone Number [facility] [address], [place] [address] * BASIC METABOLIC PANEL (07/27/2022 11:21 AM EDT) Sodium 140 136 - 145 mmol/L 07/27/2022 3:07 PM EDT [facility] Potassium 4.3 3.5 - 5.0 mmol/L 07/27/2022 3:07 PM EDT [facility], [facility] Chloride 105 98 - 107 mmol/L 07/27/2022 3:07 PM EDT [facility], [facility] Total CO2 23 22 - 29 mmol/L 07/27/2022 3:07 PM EDT [facility], [facility] Anion Gap 12 7 - 16 mmol/L 07/27/2022 3:07 PM EDT [facility], [facility] Calcium 9.3 8.6 - 10.4 mg/dL 07/27/2022 3:07 PM EDT [facility], [facility] Glucose Lvl 94 74 - 100 mg/dL 07/27/2022 3:07 PM EDT [facility], [facility] BUN 7 6 - 20 mg/dL 07/27/2022 3:07 PM EDT [facility] LAB [facility], [facility] Creatinine 0.82 0.51 - 1.30 mg/dL 07/27/2022 3:07 PM EDT [facility] LAB [facility], [facility] eGFR (CKD-EPIcr 2020) 103 >=60 mL/min/1.7 3 m2 07/27/2022 3:07 PM EDT [facility] Comment:Estimated GFR was ca lculated using the CKD-EPIcr (2020) equation refit without race. The equation is recommended by the National Kidney Foundation - [place] Society of Nephrology Task Force. Blood VENOUS BLOOD / Unknown Venipuncture / Unknown 07/27/2022 11:21 AM EDT 07/27/2022 11:21 AM EDT Tri Anand APRN CHEMISTRY ORDERABLES Final Res ult [facility], [address] , [address] [place] [phone] [facility] [address] [place], [place] [id number] * (ABNORMAL) CBC WITH DIFF (07/27/2022 11:21 AM EDT) WBC 10.7(H) 3.7 - 10.3 x10(3)/mcL 07/27/2022 2:43 PM EDT [facility], [facility] RBC 3.98 3.90 - 5.20 [...] 2:43 PM EDT [facility] [place] Percent 8.0 % 07/27/2022 2:43 PM EDT [...] 0.0. Lymph # 2.4 1.2 - 3.9 x10(3)/[facility] 07/27/2022 2:43 PM EDT [facility] [place] # 0.9 0.3 - 0.9 x10(3)/[facility] 07/27/2022 2:43 PM EDT [facility] Eos# 0.2 0.0 - 0.5 x10(3)/[facility] 07/27/2022 2:43 PM EDT [facility] Baso # 0.1 0.0 - 0.1 x10(3)/[facility] 07/27/2022 2:43 PM EDT [facility] Blood VENOUS BLOOD / Unknown Venipuncture / Unknown 07/27/2022 11:21 AM EDT 07/27/2022 11:21 AM EDT Tri Anand ETL TESTER HEMATOLOGY ORDERABLES Final Re sult [facility] [address] [facility] , [place] [address] documented in this encounter Visit Diagnoses Diagnosis Encounter for general adult medical examination without abnormal findings Routine general medical examination at a health care facility documented in this encounter Care Teams [employer] Agent Relationship Specialty Start Date End Date Julissa Hamilton NP [address] [place] [phone] PCP - General Nurse Practitioner-Family 07/02/2008/16 documented as of this encounter
--- NOTE | 2024-09-15 21:48 | ECG_ITS ---
APPROVED REPORT Exam: Resting ECG HR:68 bpm ECG Measurements Heart Rate 68 AXES KS 158 P 29 QRSd 84 QRS 67 QT 381 T 110 QTc 398 Conclusion SINUS RHYTHM LOW QRS VOLTAGE IN PRECORDIAL LEADS [QRS DEFLECTION < 1.0 mV IN CHEST LEADS] NONSPECIFIC T-WAVE ABNORMALITY BORDERLINE ECG UNCONFIRMED REPORT Electronically signed by : Gera August, 09/16/2024 22:51:34
[2024-09-15 21:49] VITALS: BP 106/60; PULSE 70; RESP 18; TEMP 36.9; O2SAT 96; BMI 42.7
--- NOTE | 2024-09-15 21:59 | XR_ITS ---
PROCEDURE INFORMATION: Exam: XR Chest Exam date and time: 09/15/2024 10:48 PM Age: 24 years old Clinical indication: Dyspnea TECHNIQUE: Imaging protocol: Radiologic exam of the chest. Views: 1 view. COMPARISON: CT ABDOMEN PELVIS W CON 03/08/2024 12:23 PM FINDINGS: Lungs: No focal consolidation. Pleural spaces: No pneumothorax. Heart/Mediastinum: Unremarkable cardiomediastinal silhouette. Bones/joints: No acute osseous findings. IMPRESSION: No focal consolidation.
--- NOTE | 2024-09-15 22:01 | HMH.EDGENADL ---
Discharge Plan Disposition Patient Disposition: Home, Self-Care Prescriptions Prescriptions: No Action hydroxyzine pamoate 50 mg capsule 50 mg PO HS acetaminophen 325 mg capsule 650 mg PO Q6H PRN (Reason: fever or pain) Qty: 60 0RF promethazine 25 mg tablet 25 mg PO Q6H PRN (Reason: nausea and vomiting) Qty: 20 0RF ibuprofen 600 mg tablet 600 mg PO Q8H PRN (Reason: pain) Qty: 14 0RF clonidine HCl 0.1 mg tablet 0.1 mg PO DAILY Patient Comments: TAKE ONE TABLET BY MOUTH AT BEDTIME lamotrigine 200 mg tablet 200 mg PO DAILY atorvastatin 10 mg tablet 10 mg PO HS Patient Comments: TAKE ONE TABLET BY MOUTH AT BEDTIME sertraline 100 mg tablet 50 mg PO DAILY Patient Comments: TAKE 1 AND 1/2 TABLETS BY MOUTH EVERY DAY omeprazole 40 mg capsule,delayed release(DR/EC) 40 mg PO BID Patient Comments: TAKE ONE CAPSULE BY MOUTH TWICE DAILY BEFORE meals metformin 500 mg tablet extended release 24 hr 500 mg PO BIDWMEAL Patient Comments: TAKE ONE TABLET BY MOUTH TWICE DAILY metoprolol tartrate 25 mg tablet 12.5 mg PO BID Patient Comments: TAKE 1/2 TABLET BY MOUTH TWICE DAILY melatonin 5 mg tablet 5 mg PO HS ondansetron 4 mg tablet,disintegrating 4 mg PO Q8H PRN (Reason: nausea and vomiting) 4 Days Qty: 12 0RF Referrals Follow up/Referrals: Quan Cornejo II, MD [Staff Physician, Gastroenterology] - See instructions Fernandez Grace MD [Staff Physician, Cardiology] - See instructions Activity Restrictions/Add. Instructions Additional Instructions/Restrictions: No emergent medical condition identified today. Please follow-up to primary care doctor or with Dr. Cornejo regarding your stool sample results and your chronic diarrhea and IBS. Regarding your passing out episode you may follow-up with our cardiology team and Dr. Grace's office. Return with any significant worsening of your symptoms. Clinical Impressions Clinical Impression: Syncope, Chest pain, pleuritic, Chronic diarrhea Instructions Patient Instructions: DI for Syncope in Adults (Fainting), DI for Syncope in Children (Fainting) Print Language Print Language: Ethiopian Discharge ED Provider: Minal August General Adult [facility] General Chief complaint: Syncope Stated complaint: syncope Time Seen by Provider: 09/15/24 21:51 Mode of Arrival: EMS Source of Information: Patient and EMS Description of Symptoms (Recalled from ER Triage Doc. by RN): [facility] pt arrives via EMS after she had an episode of becoming unresponsive for approx 10 min. Pt states last thing she remembers was having conversation with friend and slumped over. EMS states staff and other residents tried yelling and shaking her to wake up. Pt reports feeling lightheaded earlier in day and having a headache. History of Present Illness HPI narrative: Patient is a 24-year-old female presenting today after a syncopal episode. She states that she lives at [facility] and was upstairs with her friend and states that she started to feel lightheaded she been having diarrhea over the last month and also been having some nausea and vomiting states that she started feeling lightheaded and went down to her room with her friend and lost consciousness. Her friend was there and present the whole time no seizure-like activity was noted. Patient also tells me she has pleuritic chest pain. Denies any fevers chills cough any other symptoms. Denies any loss of urine or biting her tongue today. States she had a syncopal episode when she was 15 but has not had one since then. Related Data Home Medications ?Medication ?Instructions ?Recorded ?Confirmed atorvastatin 10 mg tablet 10 mg PO HS 02/15/24 08/29/24 clonidine HCl 0.1 mg tablet 0.1 mg PO DAILY 02/15/24 08/29/24 lamotrigine 200 mg tablet 200 mg PO DAILY 02/15/24 08/29/24 melatonin 5 mg tablet 5 mg PO HS 02/15/24 08/29/24 metformin 500 mg tablet,extended 500 mg PO BIDWMEAL 02/15/24 08/29/24 release 24 hr metoprolol tartrate 25 mg tablet 12.5 mg PO BID 02/15/24 08/29/24 omeprazole 40 mg capsule,delayed 40 mg PO BID 02/15/24 08/29/24 release sertraline 100 mg tablet 50 mg PO DAILY 02/15/24 08/29/24 hydroxyzine pamoate 50 mg capsule 50 mg PO HS 08/29/24 08/29/24 Previous Rx's ?Medication ?Instructions ?Recorded acetaminophen 325 mg capsule 650 mg (2 x 325 mg) PO Q6H PRN 02/18/24 fever or pain #60 caps promethazine 25 mg tablet 25 mg PO Q6H PRN nausea and 02/18/24 vomiting #20 tabs ondansetron 4 mg disintegrating 4 mg PO Q8H PRN nausea and 03/08/24 tablet vomiting 4 days #12 tabs ibuprofen 600 mg tablet 600 mg PO Q8H PRN pain #14 tabs 05/07/24 Allergies Allergy/AdvReac Type Severity Reaction Status Date / Time No Known Allergies Allergy Verified 08/29/24 15:43 [facility] Disclaimer: The information contained in this section may have been updated after the patient was seen, as this information can be updated by other users. Medical History Autism Morbid obesity Prediabetes Sleep apnea GERD (gastroesophageal reflux disease) Irritable bowel syndrome PTSD (post-traumatic stress disorder) Surgical History History of wisdom tooth extraction History of esophagogastroduodenoscopy (EGD) History of colonoscopy History of adenoidectomy History of appendectomy History of laparoscopic cholecystectomy Social History Smoking Status: Current every day smoker alcohol intake: never substance use type: other details: Very rarely current occupational status: unemployed Travel in the last 8 weeks?: None marital status: single physical activity: none Have you lived/traveled outside US in past 30 days?: No Contact w/someone who lives/traveled outside US past 30 days?: No Exposure to someone with infectious disease in past 14 days?: No Do you have a fever (greater than 100.4 F or 38 C)?: No Have you tested positive for COVID-19?: No Exposed to someone with COVID-19 in past 14 days?: No Do you have a sore throat?: No Do you have a cough?: No Do you have any weakness?: No Do you have any diarrhea?: No Are you experiencing any unusual bleeding?: No Do you have any muscle aches/pain?: No Do you have any abdominal pain?: No Are you experiencing loss of taste or smell?: No Other Medical History Have you received the Flu Vaccine for this season: No Have you received the Pneumonia Vaccine: No ROS Obtained: Yes All systems reviewed & no additional complaints except as documented Physical Exam General General appearance: alert and in no apparent distress Respiratory Respiratory exam: Present normal lung sounds bilaterally and respiratory distress Cardiovascular Cardiovascular exam: Present regular rate and normal rhythm Abdominal Exam Abdominal exam: Present soft and distention Neurological Exam Neurological exam: Present alert and oriented X3 Medical Decision Making Medical Records Screening: Per USPSTF and CDC recommendations, given the prevalence of disease in our region, it is our hospital?s policy to screen for HIV and viral Hepatitis for all patients aged 18 and over and those with ongoing risk factors. [place] Inquiry Pt receiving controlled substance: No Vital Signs: 09/15/24 21:49 Temperature 98.4 F Temperature Source Oral Pulse Rate [Left] 70 Respiratory Rate 18 Blood Pressure [Right Arm] 106/60 L Blood Pressure Mean [Right Arm] 75 Blood Pressure Source [Right Arm] Automatic Cuff Blood Pressure Position [Right Arm] Sitting 02 Sat by Pulse Oximetry 96 Oxygen Delivery Method Room Air Lab Data Lab results reviewed: Yes I reviewed the patient's lab results. Lab Results 09/15/24 21:49: WBC 8.9, RBC 4.23, Hgb 11.6 L, Hct 35.2 L, MCV 83.2, MCH 27.4, MCHC 33.0, RDW 14.0, Plt Count 411, MPV 10.1, Neut % (Auto) 54.3, Lymph % (Auto) 32.2, [place] % (Auto) 11.4 H, Eos % (Auto) 1.1, Baso % (Auto) 0.6, Neut # (Auto) 4.8, Lymph # (Auto) 2.9, [place] # (Auto) 1.0, Eos # (Auto) 0.1, Baso # (Auto) 0.1, D-Dimer 0.52 H, Sodium 138, Potassium 3.9, Chloride 104, Carbon Dioxide 24, Anion Gap 13.9, BUN 4 L, Creatinine 0.70, Estimated Creat Clear 98, Estimated GFR 103, Est GFR ( Amer) 124, Glucose 99, Calcium 9.8, Magnesium 1.7, Total Bilirubin 0.2, AST 39 H, ALT 18, Alkaline Phosphatase 101, Troponin I < 0.01, Total Protein 7.7, Albumin 4.7, Globulin 3.0, Albumin/Globulin Ratio 1.6, TSH 3.66, Serum HCG, Qual Negative 09/15/24 21:49 09/15/24 21:49 Orders (Tests/Meds): ED MEDICATIONS Generic Name Dose Route Start Last Admin Trade Name Torrie PRN Reason Stop Dose Admin Lactated Ringer's 1,000 mls @ 999 mls/hr 09/15/24 22:00 09/15/24 22:17 Lactated Ringer's 1000 Ml Bag IV 09/15/24 23:00 999 mls/hr .Q1H1M MARCELINA Administration ORDERS Category Date Time Status CXR --portable [XR chest portable] Stat Exams 09/15/24 21:59 Taken CBC w/Auto Diff [Complete Blood Count Auto Diff] Stat Lab 09/15/24 21:49 Completed CMP [Comprehensive Metabolic Panel] Stat Lab 09/15/24 21:49 Completed D-Dimer Stat Lab 09/15/24 21:49 Completed Diarrhea 23 Panel, PCR Stat Lab 09/15/24 21:59 Ordered HCG Qualitative, Serum Stat Lab 09/15/24 21:49 Completed Magnesium Stat Lab 09/15/24 21:49 Completed TSH [Thyroid Stimulating Hormone] Stat Lab 09/15/24 21:49 Completed Trop I [Troponin I] Stat Lab 09/15/24 21:49 Completed Troponin I Q3H Lab 09/16/24 01:00 Ordered Troponin I Q3H Lab 09/16/24 04:00 Ordered ECG Data Tracing #1: I reviewed this ECG and interpreted as documented below: Ventricular rate of 68 normal sinus rhythm there is low voltage in the precordial leads she does have nonspecific T wave abnormalities in anterior precordial leads no acute ischemic changes definitively noted no ST changes normal axis no significant conduction abnormalities nonspecific EKG Medical Decision Narrative: Very well-appearing 24-year-old female presented after a syncopal episode. No seizure-like activity from history standpoint as her episode was witnessed. She does have pleuritic chest pain and chronic diarrhea. Will attempt to get a diarrhea PCR panel but she has a known history of IBS with diarrhea component so this is likely chronic. Regarding her pleuritic chest pain [place] pulmonary embolism etc. on the differential but a very low likelihood. Arrhythmia and structural heart disease are on the differential and she will need to be followed up for initial workup in the emergency department is unremarkable. Reassessment 1055 labs unremarkable from an emergency standpoint EKG was unremarkable no further emergent evaluation is needed but she is very comfortable and serial assessments are normal and vital signs are normal she will follow-up closely with cardiology also given her chronic diarrhea she has been given a referral to our GI doctor for treatment of her IBS and she was able to give us a stool sample which she can follow-up on within Critical Care Critical Care Time Critical Care Time: No
[2024-09-15 22:09] LABS: Hematocrit 35.2 % (37.0-47.0); Hemoglobin 11.6 g/dL (12.2-16.2); Immature Granulocytes % 0.4 %; Mean Corpuscular HGB Conc 33.0 g/dL (31.8-35.4); Mean Corpuscular Hemoglobin 27.4 pg (27.0-31.2); Mean Corpuscular Volume 83.2 fl (81-99); Nucleated Red Blood Cells % 0 %; Platelet Count 411 K/mm3 (142-424); Red Blood Count 4.23 M/mm3 (4.20-5.40); Red Cell Distribution Width-SD 42.4 fL; White Blood Count 8.9 K/mm3 (4.8-10.8)
--- OUTSIDE RECORDS SUMMARY | 2024-09-15 22:15 | XMS_ITS | Encounter Summary ---
Author Organization [place] [address] Care Team Providers Care Residential Sales Manager Name Role Phone Milagros Reardon MD Primary Care Provider + Reason for Visit * Reason Onset Date Comments Other 06/29/2024 Encounter Details Date Type Department Care Team (Late st Contact Info) Description 06/29/2024 Telephone [facility] [address] [place] [phone] Juan Yusuf MD [address] [place] [address] Other Social History Tobacco Use Types Packs/Day Years Used Date Smoking Tobacco: Never Smokeless Tobacco: Former Quit: 04/15/2023 Comments:Vaping Alcohol Use Standard Drinks/Week Comments Not Currently 2 (1 standard drink = 0.6 oz pur e alcohol) occ [facility] Utilities Answer Date Recorded In the [...] Score 4 07/12/2023 [facility] - Occupational Stress Questionnaire Answer Date [...] to get more. Never true 07/12/2023 [facility] IP Transportation Answer D ate Recorded [...] on file Sexual Orientation Not on file documented as of this encounter Miscellaneous Notes * Telephone Encounter - Wolfgang Robbins MA - 07/19/2024 3:03 PM EDT Unable to reach pt, voicemail is not set up. * Telephone Encounter - Shirlene Meléndez RMA - 06/30/2024 8:09 AM EDT Attempted to called yuliana to advise below. No VM set up. Unable to LM * Telephone Encounter - Juan Yusuf MD - 06/29/2024 5:10 PM EDT See message about guardianship. She will need one of those people either from the state or her legal guardian to be with her for the visit. * Telephone Encounter - Suzanna Roque - 06/29/2024 2:37 PM EDT FYI: [facility] has a pending appointment 07/03/24 with is not legally allowed to sign or be in control of decision making. If she needs to be present at appointment please contact her at [phone]. Yuliana also states that it is ok to have legal guardian (mom or dad) to be present documented in this encounter Plan of Treatment Not on file documented as of this encounter Visit Diagnoses Not on filedocumented in this encounter Additional Health Concerns Assessment Noted Time PHQ-9 Depression Total Score: 4 07/12/19 24 2:08 PM EDT PHQ-2 Depression Total Score: 4 07/12/19 2:08 PM EDT documented as of this encounter Care Teams Residential Sales Manager Relationship Specialty Start Date End Date Milagros Reardon MD [address] [place] [address] [address] PCP - General Family Medicine 08/21/23 documented as of this encounter
[2024-09-15 22:17] LABS: Alanine Aminotransferase 18 U/L (12-78); Albumin Level 4.7 g/dl (3.5-5.0); Albumin/Globulin Ratio 1.6 (1.1-1.8); Alkaline Phosphatase 101 U/L (38-126); Anion Gap 13.9 mEq/L (5-15); Aspartate Amino Transferase 39 U/L (14-36); Bilirubin,Total 0.2 mg/dl (0.2-1.3); Blood Urea Nitrogen 4 mg/dl (7-17); Calcium 9.8 mg/dl (8.4-10.2); Carbon Dioxide 24 mmol/L (22.0-30.0); Chloride 104 mmol/L (98-107); Creatinine Clearance Estimated 98 mL/min (50-200); Creatinine,Serum 0.70 mg/dl (0.52-1.04); Estimated Glomerular Filt Rate 103 ml/min (>60); GFR (African American) 124 ML/MIN (>60); Globulin 3.0 g/dL (1.3-3.2); Glucose 99 mg/dl (74-100); Magnesium 1.7 mg/dl (1.6-2.3); Potassium 3.9 mmoL/L (3.5-5.1); Sodium 138 mmol/L (136-145); Total Protein,Serum 7.7 g/dl (6.3-8.2)
[2024-09-15] MEDS: LACTATED RINGERS 1000ML 1,000 ML 999 ML IV (22:17)
[2024-09-15 22:22] LABS: D-Dimer 0.52 ug/mL (0.0-0.5)
[2024-09-15 22:33] LABS: HCG Qualitative, Serum Negative (Negative)
[2024-09-15 22:37] LABS: Troponin I < 0.01 ng/ml (0.00-0.034)
[2024-09-15 22:49] LABS: Thyroid Stimulating Hormone 3.66 uIU/mL (0.465-4.68)
[2024-09-15 23:19] VITALS: BP 133/80; PULSE 63; RESP 16; TEMP 36.6; O2SAT 98
== END 2024-09-15 23:21 | disposition home or self-care (01) ==
PROVIDERS: Emergency Provider Student in an Organized Health Care Education/Training Program
DX: R09.1 Pleurisy (principal); R55 Syncope and collapse; R51.9 Headache, unspecified; R19.7 Diarrhea, unspecified; F17.210 Nicotine dependence, cigarettes, uncomplicated
CPT/HCPCS: 71045; 80053; 83735; 84443; 84484; 84703; 85025; 85378; 93005; 96360; 99284; J7120

== ENCOUNTER 2024-10-12 18:57 | Emergency (ER) | payer MEDICARE, MEDICAID, SELFPAY ==
--- OUTSIDE RECORDS SUMMARY | 2020-05-22 09:27 | XMS_ITS | Encounter Summary ---
Author Organization [place] [address] Care Team Providers Care Inside Sales Trainer Name Role Phone Pop Abbott MD Primary Care Provider [phone] Encounter Details Date Type Department Care Team (Latest Contact Info) Description 05/22/2020 9:27 AM EDT Hospital Encounter [facility] Referral Lab [address] [place] [phone] Julissa Hamilton, TACOS [address] [place] [address] Encounter for general adult medical examination without abnormal findings Social History Tobacco Use Types Packs/Day Years Used Date Smoking Tobacco: Never Smokeless Tobacco: Former Quit: 04/15/2023 Comments:Vaping Alcohol Use Standard Drinks/Week Comments Not Currently 2 (1 standard drink = 0.6 oz pur e alcohol) occ [facility] Utilities Answer Date Recorded In the [...] Date Recorded PHQ-2 Total Score 4 07/12/2023 [facility] - Occupational Stress Questionnaire Answer Date Recorded [...] money to get more. Never true 07/12/2023 [facility] IP Transportation Answer D ate Recorded In [...] 01/01/2024 8:19 PM Yaima Aviles RN * [place] Suicide Severity Rating Scale (Q shift for [...] 06/06/2020 3:01 PM EDT [facility] MPV 10.1 8.8 - 12.5 fL 06/06/2020 3:01 PM EDT [facility] Neut Percent 62.3 % 06/06/2020 3:01 PM EDT [facility] Comment:Neutrophils equals s egs plus bands Imm Gran% 0.7 % 06/06/2020 3:01 PM EDT [facility] Comment:Automated count of m etamyelocytes, myelocytes and promyelocytes. Lymph Percent 24.4 % 06/06/2020 3:01 PM EDT [facility] Fajardo Percent 9.2 % 06/06/2020 3:01 PM EDT [facility] Eos Percent 2.7 % 06/06/2020 3:01 PM EDT [facility], [facility] Baso Percent 0.7 % 06/06/2020 3:01 PM EDT [facility], [facility] Neut # 6.7(H) 1.6 - 6.1 x10(3)/[facility] 06/06/2020 3:01 PM EDT [facility] Comment:Neutrophils equals s egs plus bands IMMGRAN# 0.1 0.0 - 0.1 x10(3)/[facility] 06/06/2020 3:01 PM EDT [facility] Comment:Automated count of m etamyelocytes, myelocytes and promyelocytes. An absolute IG <0.1 is reported as 0.0. Lymph # 2.6 1.2 - 3.9 x10(3)/[facility] 06/06/2020 3:01 PM EDT [facility] Fajardo # 1.0(H) 0.3 - 0.9 x10(3)/[facility] 06/06/2020 3:01 PM EDT [facility] Eos# 0.3 0.0 - 0.5 x10(3)/[facility] 06/06/2020 3:01 PM EDT [facility] Baso # 0.1 0.0 - 0.1 x10(3)/[facility] 06/06/2020 3:01 PM EDT [facility] Blood Venipuncture / Unknown 06/06/2020 9:29 AM EDT 06/06/2020 9:29 AM EDT us Julissa Hamilton NP HEMATOLOGY ORDERABLES Final Resu lt [facility] [address] [facility] , [address] [place] [phone] * (ABNORMAL) COMPREHENSIVE METABOLIC PANEL (06/06/2020 9:29 [...] 06/06/2020 4:32 PM EDT [facility], [facility] Alk Phos 82 36 - 123 U/L 06/06/2020 4:32 PM EDT [facility], [facility] GFR Afr Am 121 >=60 mL/min/1.7 3 m2 06/06/2020 4:32 PM EDT [facility] GFR Non Afr Am 105 >=60 mL/min/1.7 3 m2 06/06/2020 4:32 PM EDT [facility] Comment: This estimated GFR was [...] ORDERABLES Final Resul t [facility], [address], [place] [address] [facility] [address] [place] [address] * (ABNORMAL) LIPID PANEL REFLEX (06/06/2020 9:29 AM EDT) Cholesterol 202(H) <200 mg/dL 06/06/2020 4:35 PM EDT [facility] [employer] Comment: < 200 Desirable 200 - 239 Borderline High >= 240 High Triglyceride 182(H) <150 mg/dL 06/06/2020 4:35 PM EDT [facility] [employer], [facility] Comment: < 150 Normal 150 - 199 Borderline High 200 - 499 High >= 500 Very High HDL 52 >=40 mg/dL 06/06/2020 4:35 PM EDT [facility] [employer], [facility] Comment: > 60 Optimal 40 - 60 Acceptable < 40 Low LDL Direct 117(H) <100 mg/dL 06/06/2020 4:35 PM EDT [facility] [employer], [facility] Non-HDL-C Calculated 150(H) <=129 mg/dL 06/06/2020 4:35 PM EDT [facility] Comment: <130 Desirable 130-159 Above Desirable 160-189 Borderline High 190-219 High >= 220 Very High Fasting Specimen? Yes None 021 4:35 PM EDT [facility] Blood Venipuncture / Unknown 06/06/2020 9:29 AM EDT 06/06/2020 9:29 AM EDT Julissa Hamilton NP CHEMISTRY ORDERABLES Final Resul t Performing Organization Address [facility] de Phone Number [facility] [employer] , [place] [phone] [facility] [address] [place], [place] [address] * TSH REFLEX (06/06/2020 9:29 AM EDT) TSH Reflex 2.890 0.270 - 4.200 mcIU/mL 06/06/2020 4:23 PM EDT [facility] [employer], [facility] Blood Venipuncture / Unknown 06/06/2020 9:29 AM EDT 06/06/2020 9:29 AM EDT Narrative [facility] - 06/06/2020 4:23 PM EDT Ingestion of israel doses of biotin (>5 mg/day) taken within 8 hours of drawing blood sample can interfere with this immunoassay test. us Julissa Hamilton NP CHEMISTRY ORDERABLES Final Resul t Performing Organization Address [facility] Co de Phone Number [facility] [employer])[address] , [place] [address] * HIV AG/AB (06/06/2020 9:29 AM EDT) HIV Ag/AB Non-Reactiv e Non-Reacti ve 06/06/2020 5:20 PM EDT [facility] Blood Venipuncture / Unknown 06/06/2020 9:29 AM EDT 06/06/2020 9:29 AM EDT Julissa Hamilton NP IMMUNOLOGY ORDERABLES Final Resu lt Performing Organization Address [facility] de Phone Number [facility] [employer] [facility] [address] [facility] , [address] [place] [phone] * HEMOGLOBIN A1C (06/06/2020 9:29 AM EDT) Pathologist [facility] Hgb A1C 5.6 4.2 - 5.6 % 06/06/2020 3:47 PM EDT [facility] [employer] [facility] Est. Avg Glucose 114 mg/dL 06/06/2020 3:47 PM EDT [facility] [employer] Blood Venipuncture / Unknown 06/06/2020 9:29 AM EDT 06/06/2020 9:29 AM EDT Narrative [facility] [employer] - 06/06/2020 3:47 PM EDT REFERENCE RANGE: [...] ORDERABLES Final Resul t Performing Organization Address [facility] Co de Phone Number [facility] [employer] [facility] [address] [facility] , [place] [address] * HEPATITIS C SCREEN (06/06/2020 9:29 AM EDT) Pathologist [facility] Hep C Ab Non-Reactiv e Non-Reacti ve 06/06/2020 5:20 PM EDT [facility] [employer] [facility] Blood Venipuncture / Unknown 06/06/2020 9:29 AM EDT 06/06/2020 9:29 AM EDT Julissa Hamilton NP HEMATOLOGY ORDERABLES Final Resu lt Performing Organization Address [facility] de Phone Number [facility] [address], [place] [address] * HEPATITIS B SURFACE ANTIBODY (06/06/2020 9:29 AM EDT) Hep Bs Ab <3.08 mIU/mL 06/06/2020 5:19 PM EDT [facility] Comment: < 8.00 mIU/mL - NON REACTIVE [...] ORDERABLES Final Resu lt Performing Organization Address [facility] de Phone Number [employer] [facility] [address], [place] [address] documented in this encounter Visit [...] documented as of this encounter Care Teams Inside Sales Trainer Relationship Specialty Start Date End Date Pop Abbott MD [address] [place] [phone] PCP - General Pediatrics-Adolescent Medicine 07/17/16 07/01/20 documented as of this encounter
--- OUTSIDE RECORDS SUMMARY | 2022-07-15 14:19 | XMS_ITS | Encounter Summary ---
Author Organization [place] [address] Care Team Providers Care Vendor Relationship Manager Name Role Phone Julissa Hamilton NP Primary Care Provider [phone] Encounter Details Date Type Department Care Team (Latest Contact Info) Description 07/15/2022 2:19 PM EDT Hospital Encounter [facility] Referral Lab [address] [place] [address] Tri Anand APRN [address] [place], [place] [phone] Encounter for general adult medical examination without abnormal findings Social History Tobacco Use Types Packs/Day Years Used Date Smoking Tobacco: Never Smokeless Tobacco: Former Quit: 04/15/2023 Comments:Vaping Alcohol Use Standard Drinks/Week Comments Not Currently 2 (1 standard drink = 0.6 oz pur e alcohol) occ [facility] Utilities Answer Date Recorded In the past 12 months has [employer], gas, oil, or water company threatened to shut off services in your home? No 07/12/2023 Overall Financial Resource Strain (CARDIA) Bertrand r Date Recorded How hard is it for you to pa y for the very basics like food, housing, medical care, and heating? Not hard at all 07/12/2023 PHQ-2 Answer Date Recorded PHQ-2 Total Score 4 07/12/2023 [facility] - Occupational Stress Questionnaire Answer [...] money to get more. Never true 07/12/2023 [facility] IP [...] Author 0 07/12/2023 3:42 AM EDT Tri iDana, RN * Drug Screening Score Answer Date [...] 01/01/2024 8:19 PM Yaima Aviles RN * [place]le Suicide Severity Rating Scale (Q shift for [...] - 4.200 mcIU/mL 07/27/2022 3:07 PM EDT [facility] [employer] Blood VENOUS BLOOD / Unknown Venipuncture / Unknown 07/27/2022 11:21 AM EDT 07/27/2022 11:21 AM EDT Narrative [facility] [employer] - 07/27/2022 3:07 PM EDT Ingestion of israel doses of biotin (>5 mg/day) taken within 8 hours of drawing blood sample can interfere with this immunoassay test. Tri Anand APRN CHEMISTRY ORDERABLES Final Res ult Performing Organization Address [facility]/ZIP Co de Phone Number [facility] [employer] [address] , [place] [address] * HIV AG/AB (07/27/2022 11:21 AM EDT) [facility] HIV Ag/AB Non-Reactiv e Non-Reacti ve 07/27/2022 3:40 PM EDT [employer] Blood VENOUS BLOOD / Unknown Venipuncture / Unknown 07/27/2022 11:21 AM EDT 07/27/2022 11:21 AM EDT Tri Anand APRN IMMUNOLOGY ORDERABLES Final Re sult Performing Organization Address [facility]/ZIP Co de Phone Number [facility] [employer] [facility] [address] , [place] [address] * (ABNORMAL) LIPID SCREEN (07/27/2022 11:21 AM EDT) [facility] Cholesterol 174 <200 mg/dL 07/27/2022 3:07 PM EDT [facility] [employer] Comment: < 200 Desirable 200 - 239 Borderline High >= 240 High Triglyceride 84 <150 mg/dL 07/27/2022 3:07 PM EDT [facility] [employer], [facility] Comment: < 150 Normal 150 - 199 Borderline High 200 - 499 High >= 500 Very High HDL 54 >=40 mg/dL 07/27/2022 3:07 PM EDT [facility] [employer] Comment: > 60 Optimal 40 - 60 Acceptable < 40 Low LDL Calculated 104(H) <100 mg/dL 07/27/2022 3:07 PM EDT [facility] [employer], [facility] Comment: < 100 Optimal 100 - 129 Near or above optimal 130 - 159 Borderline High 160 - 189 High >= 190 Very High Non-HDL-C Calculated 120 <=129 mg/dL 07/27/2022 3:07 PM EDT [facility] [employer] Comment: <130 Desirable 130-159 Above Desirable 160-189 Borderline High 190-219 High >= 220 Very High Fasting Specimen? Yes None 023 3:07 PM EDT [facility] Blood VENOUS BLOOD / Unknown Venipuncture / Unknown 07/27/2022 11:21 AM EDT 07/27/2022 11:21 AM EDT Tri Anand APRN CHEMISTRY ORDERABLES Final Res ult [facility] [address] [facility], [address] [place] [phone] [facility] [address] [place] [address] * HEMOGLOBIN A1C (07/27/2022 11:21 AM EDT) [facility] Signature Hgb A1C 5.3 4.2 - 5.6 % 07/27/2022 3:15 PM EDT [facility] [employer] Est. Avg Glucose 105 mg/dL 07/27/2022 3:15 PM EDT [facility] [employer] Blood VENOUS BLOOD / Unknown Venipuncture / Unknown 07/27/2022 11:21 AM EDT 07/27/2022 11:21 AM EDT Narrative [facility] [employer] [facility] - 07/27/2022 3:15 PM EDT REFERENCE [...] ORDERABLES Final Res ult Performing Organization Address [facility] Co de Phone Number [facility] [employer] , [place] [address] * HCV ANTIBODY SCREEN W/ REFLEX (07/27/2022 11:21 AM EDT) Pathologist [facility] Hep C Ab Non-Reactiv e Non-Reacti ve 07/27/2022 3:41 PM EDT [facility] [employer] [facility] Blood VENOUS BLOOD / Unknown Venipuncture / Unknown 07/27/2022 11:21 AM EDT 07/27/2022 11:21 AM EDT Tri Anand APRN HEMATOLOGY ORDERABLES Final Re sult Performing Organization Address [facility] de Phone Number [facility] [employer] , [place] [address] * HEPATITIS B SURFACE ANTIBODY (07/27/2022 11:21 AM EDT) Hep Bs Ab 22.35 mIU/mL 07/27/2022 3:40 PM EDT [facility] [employer] [facility] Comment: < 8.00 mIU/mL - NON [...] ORDERABLES Final Re sult Performing Organization Address [facility] Co de Phone Number [facility] [address] , [place] [address] * HEPATIC FUNCTION PANEL (07/27/2022 [...] ORDERABLES Final Res ult Performing Organization Address [facility]/ZIP Co de Phone Number [facility] [address], [place] [address] * BASIC METABOLIC PANEL (07/27/2022 11:21 AM EDT) Sodium 140 136 - 145 mmol/L 07/27/2022 3:07 PM EDT [facility] Potassium 4.3 3.5 - 5.0 mmol/L 07/27/2022 3:07 PM EDT [facility] Chloride 105 98 - 107 mmol/L 07/27/2022 3:07 PM EDT [facility] Total CO2 23 22 - 29 mmol/L 07/27/2022 3:07 PM EDT [facility] Anion Gap 12 7 - 16 mmol/L 07/27/2022 3:07 PM EDT [facility], [facility] Calcium 9.3 8.6 - 10.4 mg/dL 07/27/2022 3:07 PM EDT [facility] Glucose Lvl 94 74 - 100 mg/dL 07/27/2022 3:07 PM EDT [facility] BUN 7 6 - 20 mg/dL 07/27/2022 3:07 PM EDT [facility], [facility] Creatinine 0.82 0.51 - 1.30 mg/dL 07/27/2022 3:07 PM EDT [facility], [facility] eGFR (CKD-EPIcr 2020) 103 >=60 mL/min/1.7 3 m2 07/27/2022 3:07 PM EDT [facility] Comment:Estimated GFR was ca lculated using the CKD-EPIcr (2020) equation refit without race. The equation is recommended by the National Kidney Foundation - [place] Society of Nephrology Task Force. Blood VENOUS BLOOD / Unknown Venipuncture / Unknown 07/27/2022 11:21 AM EDT 07/27/2022 11:21 AM EDT Tri Anand APRN CHEMISTRY ORDERABLES Final Res ult [facility], [address] , [address] [place] [phone] [facility] [address] [place], [place] [phone] * (ABNORMAL) CBC WITH DIFF (07/27/2022 11:21 AM EDT) WBC 10.7(H) 3.7 - 10.3 x10(3)/mcL 07/27/2022 2:43 PM EDT [facility] RBC 3.98 3.90 - 5.20 x10(6)/mcL [...] 2:43 PM EDT [facility] [place] Percent 8.0 % 07/27/2022 2:43 PM EDT [...] 0.0. Lymph # 2.4 1.2 - 3.9 x10(3)/[facility] 07/27/2022 2:43 PM EDT [facility] [place] # 0.9 0.3 - 0.9 x10(3)/[facility] 07/27/2022 2:43 PM EDT [facility] Eos# 0.2 0.0 - 0.5 x10(3)/[facility] 07/27/2022 2:43 PM EDT [facility] Baso # 0.1 0.0 - 0.1 x10(3)/[facility] 07/27/2022 2:43 PM EDT [facility] Blood VENOUS BLOOD / Unknown Venipuncture / Unknown 07/27/2022 11:21 AM EDT 07/27/2022 11:21 AM EDT Tri Anand SHREDDER OPERATOR HEMATOLOGY ORDERABLES Final Re sult [facility] [address] , [place] [address] documented in this encounter Visit Diagnoses Diagnosis Encounter for general adult medical examination without abnormal findings Routine general medical examination at a health care facility documented in this encounter Care Teams Vendor Relationship Manager Relationship Specialty Start Date End Date Julissa Hamilton NP [address] [place] [phone] PCP - General Nurse Practitioner-Family 07/02/2008/16 documented as of this encounter
--- NOTE | 2024-10-12 18:53 | ED_ITS ---
<Statement entered by Chacorta Agrawal MD - 10/12/24 21:45> I was consulted by the CRUZ, and we discussed the complexity of the problems being addressed. I approve the treatment and management plan for this patient's care in the emergency department, thus performing a substantive portion of the medical decision making. Chacorta Agrawal MD Discharge Plan Disposition Patient Disposition: Home, Self-Care Condition: Good Prescriptions Prescriptions: No Action hydroxyzine pamoate 50 mg capsule 50 mg PO HS acetaminophen 325 mg capsule 650 mg PO Q6H PRN (Reason: fever or pain) Qty: 60 0RF promethazine 25 mg tablet 25 mg PO Q6H PRN (Reason: nausea and vomiting) Qty: 20 0RF ibuprofen 600 mg tablet 600 mg PO Q8H PRN (Reason: pain) Qty: 14 0RF clonidine HCl 0.1 mg tablet 0.1 mg PO DAILY Patient Comments: TAKE ONE TABLET BY MOUTH AT BEDTIME lamotrigine 200 mg tablet 200 mg PO DAILY atorvastatin 10 mg tablet 10 mg PO HS Patient Comments: TAKE ONE TABLET BY MOUTH AT BEDTIME sertraline 100 mg tablet 50 mg PO DAILY Patient Comments: TAKE 1 AND 1/2 TABLETS BY MOUTH EVERY DAY omeprazole 40 mg capsule,delayed release(DR/EC) 40 mg PO BID Patient Comments: TAKE ONE CAPSULE BY MOUTH TWICE DAILY BEFORE meals metformin 500 mg tablet extended release 24 hr 500 mg PO BIDWMEAL Patient Comments: TAKE ONE TABLET BY MOUTH TWICE DAILY metoprolol tartrate 25 mg tablet 12.5 mg PO BID Patient Comments: TAKE 1/2 TABLET BY MOUTH TWICE DAILY melatonin 5 mg tablet 5 mg PO HS ondansetron 4 mg tablet,disintegrating 4 mg PO Q8H PRN (Reason: nausea and vomiting) 4 Days Qty: 12 0RF Referrals Follow up/Referrals: Provider,Referral, MD [Primary Care Provider, Medical] - See instructions Activity Restrictions/Add. Instructions Additional Instructions/Restrictions: You were evaluated on an emergency basis. It is very important that you follow- up with your primary care provider and any specialist who we discussed within the next 2 days in order to better assess your health more comprehensively. For example, incidental findings on imaging or laboratory results that were performed today may be discovered, which do not require immediate medical care, but may impact your health in the future. If your symptoms worsen or persist, please return to the emergency department immediately for reassessment. Take all medications as prescribed. In queue for allowing me to participate in your health care, and I hope you feel better soon. Clinical Impressions Clinical Impression: Contusion of elbow, left Instructions Patient Instructions: Contusion Print Language Print Language: Yakut Discharge ED Provider: Chacorta Agrawal General Adult HPI General Chief complaint: Fall Stated complaint: fall Time Seen by Provider: 10/12/24 19:01 History of Present Illness HPI narrative: 24-year-old female presents emergency department with complaints of left elbow pain after falling prior to arrival. She states that she has not had medication for pain prior to arrival. Reports that her last menstrual period was August 30 and is concerned that she may be . Related Data Home Medications ?Medication ?Instructions ?Recorded ?Confirmed atorvastatin 10 mg tablet 10 mg PO HS 02/15/24 5 clonidine HCl 0.1 mg tablet 0.1 mg PO DAILY 02/15/24 0 08/29/24 lamotrigine 200 mg tablet 200 mg PO DAILY 02/15/24 melatonin 5 mg tablet 5 mg PO HS 02/15/24 08/29/24 metformin 500 mg tablet,extended 500 mg PO BIDWMEAL 08/29/24 release 24 hr metoprolol tartrate 25 mg tablet 12.5 mg PO BID 08/29/24 omeprazole 40 mg capsule,delayed 40 mg PO BID 02/15/24 08/29/24 release sertraline 100 mg tablet 50 mg PO DAILY 02/15/2408/15 hydroxyzine pamoate 50 mg capsule 50 mg PO HS 08/29/24 08/29/24 Previous Rx's ?Medication ?Instructions ?Recorded acetaminophen 325 mg capsule 650 mg (2 x 325 mg) PO Q6 H PRN 02/18/24 fever or pain #60 caps promethazine 25 mg tablet 25 mg PO Q6H PRN nausea and 02/18/24 vomiting #20 tabs ondansetron 4 mg disintegrating 4 mg PO Q8H PRN nausea and 03/08/24 tablet vomiting 4 days #12 tabs ibuprofen 600 mg tablet 600 mg PO Q8H PRN pain #14 t abs 05/07/24 Allergies Allergy/AdvReac Type Severity Reaction Status Date / Time No Known Allergies Allergy Verified 08/29/24 15:43 PFSH PFSH Disclaimer: The information contained in this section may have been updated after the patient was seen, as this information can be updated by other users. Medical History Autism Morbid obesity Prediabetes Sleep apnea GERD (gastroesophageal reflux disease) Irritable bowel syndrome PTSD (post-traumatic stress disorder) Surgical History History of wisdom tooth extraction History of esophagogastroduodenoscopy (EGD) History of colonoscopy History of adenoidectomy History of appendectomy History of laparoscopic cholecystectomy Family History (Updated 10/12/24 @ 18:56 by Denise Smith RN) Other No significant family history Social History Smoking Status: Current every day smoker alcohol intake: never substance use type: other details: Very rarely current occupational status: unemployed Travel in the last 8 weeks?: None marital status: single physical activity: none Have you lived/traveled outside [place] in past 30 days?: No Contact w/someone who lives/traveled outside US past 30 days?: No Exposure to someone with infectious disease in past 14 days?: No Do you have a fever (greater than 100.4 F or 38 C)?: No Have you tested positive for COVID-19?: No Exposed to someone with COVID-19 in past 14 days?: No Do you have a sore throat?: No Do you have a cough?: No Do you have any weakness?: No Do you have any diarrhea?: No Are you experiencing any unusual bleeding?: No Do you have any muscle aches/pain?: No Do you have any abdominal pain?: No Are you experiencing loss of taste or smell?: No Other Medical History Have you received the Flu Vaccine for this season: No Have you received the Pneumonia Vaccine: No ROS Obtained: Yes All systems reviewed & no additional complaints except as documented Musculoskeletal Musculoskeletal: Reports arthralgias Physical Exam Narrative Physical exam: General: Awake, aware, in no acute distress HEENT: Normocephalic, no evidence of trauma CV: RRR, no murmurs, rubs, or gallops Pulm: CTA bilaterally with no rhonchi, rales, wheezes ABD: Nontender, no swelling, guarding, or rebound tenderness Psych, appropriate mood and affect Musculoskeletal: Patient reports tenderness on palpation of left elbow. No ecchymosis, erythema, edema, or abrasions noted. With full range of motion and intact sensation as well as 2+ pulses and 5 out of 5 strength. General General appearance: alert Respiratory Respiratory exam: Present normal lung sounds bilaterally Cardiovascular Cardiovascular exam: Present regular rate Neurological Exam Neurological exam: Present alert Medical Decision Making Medical Records Screening: Per USPSTF and CDC recommendations, given the prevalence of disease in our region, it is our hospital?s policy to screen for HIV and viral Hepatitis for all patients aged 18 and over and those with ongoing risk factors. [place] Inquiry Pt receiving controlled substance: No Vital Signs: 10/12/24 18:56 10/12/24 18:56 10/12/24 18:56 Temperature 99.4 F 99.4 F Temperature Source Oral Pulse Rate 86 Pulse Rate [Right] 86 Respiratory Rate 16 16 Blood Pressure 154/103 H Blood Pressure [Right Arm] 154/103 H Blood Pressure Mean [Right Arm] 120 02 Sat by Pulse Oximetry 98 98 98 Oxygen Delivery Method Room Air Room Air 10/12/24 19:00 Temperature Temperature Source Pulse Rate 81 Pulse Rate [Right] Respiratory Rate Blood Pressure 135/88 Blood Pressure [Right Arm] Blood Pressure Mean [Right Arm] 02 Sat by Pulse Oximetry 99 Oxygen Delivery Method Lab Data Lab Results 10/12/24 19:10: Urine HCG, Qual Negative Orders (Tests/Meds): ED MEDICATIONS Discontinued Medications Generic Name Dose Route Start Last Admin Trade Name Freq PRN Reason Stop Dose Admin Acetaminophen 650 mg 10/12/24 18:53 10/12/24 19:13 Acetaminophen 325mg Tab PO 10/12/24 18:54 650 mg ONCE ONE Administration ORDERS Category Date Time Status Elbow XR left mininum 3 views [XR elbow LT min 3V] Stat Exams 10/12/24 18:53 Completed Urine , HCG Qual. Stat Lab 10/12/24 19:10 Completed Medical Decision Narrative: Initial impression of presenting illness: 24-year-old female presents emergency department with complaints of pain to her left elbow after falling prior to arrival. She states she has not had any medication for pain prior to arrival. She also is concerned that she may be stating that her last menstrual period was August 30. Differential diagnosis includes but is not limited to: Abrasion, fracture, dislocation, contusion, Patient arrives hemodynamically stable, afebrile, without respiratory distress with vital signs interpreted by myself. Initial physical exam reveals tenderness on palpation to patient's left elbow however no ecchymosis, erythema, edema, deformity noted. Stations intact with 2+ pulses, 5 out of 5 strength and full range of motion. Initial diagnostic plan: Urine test, x-ray of left elbow, Tylenol for pain control Results from initial plan were reviewed and interpreted by myself, pertinent positives include: X-ray of left elbow unremarkable for acute findings. Patient's urine test was also negative. Interventions in the ED: Patient was given Tylenol for pain control. Patient was made aware of the results and the findings, upon reevaluation patient has remained stable throughout stay, symptoms remained stable. Upon reevaluation patient is resting comfortably in bed with no signs of acute distress. Consultation/discussion with other physicians: Reviewed patient's presenting com plaint as well as workup findings with ED attending Dr. Ortiz. Disposition: Informed patient that no abnormalities were noted on her x-ray and that her urine test was negative. Informed her that we will treat for a contusion with Tylenol, ibuprofen, ice and rest. Return to follow-up with the PCP as needed or return to the emergency department for any new or worsening symptoms. Patient made aware of findings and had a detailed discussion with symptomatic care and return precautions, patient voiced understanding. Critical Care Critical Care Time Critical Care Time: No
--- NOTE | 2024-10-12 18:53 | XR_ITS ---
PROCEDURE INFORMATION: Exam: XR Left Elbow Exam date and time: 10/12/2024 7:34 PM Age: 24 years old Clinical indication: Injury or trauma; Fall; Blunt trauma (contusions or hematomas); Elbow; Left TECHNIQUE: Imaging protocol: Radiologic exam of the left elbow. Views: 3 or more views. Total images: 3 COMPARISON: No relevant prior studies available. FINDINGS: Bones/joints: No acute fracture, joint dislocation, or joint effusion. Unremarkable joint spaces. No concerning bone lesions or calcifications. Soft tissues: Unremarkable soft tissues. IMPRESSION: Negative left elbow.
[2024-10-12 18:56] VITALS: BP 154/103; PULSE 86; RESP 16; TEMP 37.4; O2SAT 98; BMI 42.0
[2024-10-12 19:00] VITALS: BP 135/88; PULSE 81; O2SAT 99
--- NOTE | 2024-10-12 19:08 | PC.NURSE ---
Report received from Denise BLUNT Pt resting quietly in bed Skin pink warm and dry Resp full and easy Speech clear and appropriate
--- OUTSIDE RECORDS SUMMARY | 2024-10-12 19:11 | XMS_ITS | Clinical Summary ---
Author Organization [facility] Address [address] [place] [address] Phone Care Team Providers Care Inspector Returned Materials Name Role Phone Milagros Reardon MD Primary Care Provider + Allergies Active Allergy Reactions Criticality Noted Date Comments Mosquito Allergenic Extract Swelling 06/19/19 17 No formal allergy test has been completed, but reports adverse, extreme swelling at bite site Medications * This document contains information received from the source organization and may not represent a complete record from that organization. melatonin 5 mg Oral Tablet Take 10 mg by mouth nightly. Active lamoTRIgine (LAMICTAL) 200 mg Oral Tablet Take 200 mg by mouth daily. Bed time Active metoprolol (LOPRESSOR) 25 mg Oral Tablet Take 12.5 mg by mouth 2 times daily. Active hydrOXYzine (VISTARIL) 25 mg Oral Capsule TAKE ONE CAPSULE BY MOUTH FOUR TIMES DAILY NEEDED FOR ANXIETY 2 Active atorvastatin (LIPITOR) 10 mg Oral Tablet Take by mouth daily. Active sertraline (ZOLOFT) 100 mg Oral Tablet Take by mouth daily. Active VRAYLAR 3 mg Oral Capsule Take 3 mg by mouth every morning. 3 Active ondansetron (ZOFRAN-ODT) 8 mg Oral Tablet, Rapid DissolveIndicat ions:Nausea Take 1 Tablet by mouth every 6 hours as needed for Nausea, Vomiting or Breakthrough Nausea/Vomiting. 40 Tablet 6 4 Active norethindrone-e .estradiol-iron (JEANNA FE 03/06, , ORAL) Take by mouth. Activ e dextroamphetami ne-amphetamine (ADDERALL) 10 mg Oral Tablet TAKE ONE TABLET BY MOUTH EVERY MORNING. ON work DAYS 4 Active miSOPROStoL (CYTOTEC) 200 mcg Oral Tablet TAKE ONE TABLET th enight BEFORE THE procedure AND TAKE ONE TABLET THE morning of procedure 4 Active metFORMIN (GLUCOPHAGE XR) 500 mg Oral ER 24 hr tabletIndicatio ns:Prediabetes Take 1 Tablet by mouth 2 times daily (with meals). Increase dose as tolerated as directed for total of 1000mg twice daily with food 180 Tablet 3 4 Active omeprazole (PRILOSEC) 40 mg Oral Capsule, Delayed Release(E.C.)In dications:Gastr oesophageal reflux disease without esophagitis TAKE ONE CAPSULE BY MOUTH TWICE DAILY BEFORE meals 200 Capsule 2 4 Active hydrOXYzine (VISTARIL) 50 mg Oral Capsule 50 mg. 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 02/07/2024 Mood insomnia 02/07/2024 History of cannabis dependence/abuse 02/07/2024 Salicylate overdose, undetermined intent, initia l encounter 07/12/2023 Overdose, undetermined intent, subsequent encoun ter 06/17/2023 Acetaminophen overdose, inte ntional self-harm, initial encounter 06/15/2023 Intentional aspirin overdose, initial encounter 05/21/2023 DARIO (obstructive sleep apnea) 05/12/2023 Overview (05/12/2023): Mild DARIO Intellectual disability 04/28/2023 Iron deficiency anemia due to chronic blood loss 02/22/2023 Gastroparesis 11/26/2022 Suicide attempt 01/12/2022 Suicidal ideation 01/01/2022 Syncope and collapse 08/02/2021 Major depressive disorder, r ecurrent severe without psychotic features 05/15/2021 Essential hypertension 01/17/2021 Irritable bowel syndrome wit h both constipation and diarrhea 01/16/2021 Gastroesophageal reflux disease without esophagi tis 10/25/2020 Prediabetes 04/23/2020 Hyperlipidemia 02/01/2020 Obesities, morbid 02/01/2020 Class 3 severe obesity due t o excess calories without serious comorbidity with body mass index (BMI) of 50.0 to 59.9 in adult 12/13/2019 Chronic post-traumatic stress disorder (PTSD) Borderline personality disorder 03/06/2019 Sensory processing difficulty 05/12/2016 Autistic disorder 2004 Resolved Problems Problem Noted Date Diagnosed Date Resolved Date Mood disorder 07/12/2023 08/24/2023 Overdose, undetermined inten t, initial encounter 06/16/2023 06/17/2023 Right wrist pain 08/06/2022 02/07/2024 Right wrist sprain, initial encounter 08/06/2022 02/07/2024 Deliberate self-cutting 01/01/202212/16 Major depressive disorder, r ecurrent, in full remission 05/15/2021 08/13/2021 Aggressive behavior 05/14/2021 01/02/20 22 Laceration of right wrist 01/20/2021 Suicide attempt 01/16/2021 01/01/2022 Mood disorder 11/21/2020 01/16/2021 Suicide attempt by drug ingestion 11/21/2020 05/14/2021 Major depressive disorder, r ecurrent, severe with psychotic features 10/25/2020 05/14/2021 Abdominal pain 08/26/2020 10/25/2020 Overview (08/26/2020): Added automatically from request for surgery [id number] Nausea 08/26/2020 10/25/2020 Overview (08/26/2020): Added automatically from request for surgery [id number] Abnormal blood sugar 02/01/2020 024 Abnormal weight gain 02/01/2020 024 Medical clearance for psychiatric admission 03/05/2019 10/25/2020 Generalized abdominal pain 12/08/2018 1 03/23/2020 Overview (12/08/2018): Added automatically from request for surgery [id number] Alternating constipation and diarrhea 12/08/2018 10/25/2020 Overview (12/08/2018): Added automatically from request for surgery [id number] Suicidal ideation 10/27/2018 10/25/2020 MDD (major depressive disord er), recurrent severe, without psychosis 07/04/2018 05/15/2021 Asperger's disorder 07/04/2018 12/13/19 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 Date Type Department Care Team Description 07/12/2024 Telephone [facility] [address] [facility] [address] [facility] [address] [place] [phone] Juan Yusuf MD Other (Faxed BETZY note ) from Last 3 Months Immunizations Immunization Administration Dates Next Due PPD Test 03/12/2015 Surgical History Surgery Date Site/Laterality Comments CYST REMOVAL behind right ear ADENOIDECTOMY CHOLECYSTECTOMY, LAPAROSCOPIC 05/13/2018 N/A Laparoscopic Cholecystectomy ; Surgeon: Akosua Calixto MD; Location: [facility] OR; Service: General UPPER GASTROINTESTINAL ENDOSCOPY 02/15/2017 - 02/14/2018 Dr Grossman in [place] COLONOSCOPY 01/31/2019 UPPER GASTROINTESTINAL ENDOSCOPY 09/27/2020 N/A Esophagogastroduodenoscopy with biopsy ; Surgeon: Juan Carlos Ly MD PHD; Location: [facility]; Service: Endoscopy XR INJECT CONTRAST EXISTING TUBE 01/28/2022 XR INJECT CONTRAST EXISTING TUBE 01/28/2022 ABDOMEN SURGERY 2018 gallbladder COLPOSCOPY 2017 Medical History Medical History Date Comments Heartburn Depression Obesity PTSD (post-traumatic stress disorder) Borderline personality disorder (HCC) Diabetes mellitus (HCC) pre diab etic Irritable bowel syndrome Syncope and collapse Anxiety disorder Asperger syndrome Hypertension GERD (gastroesophageal reflux disease) Hyperlipidemia Family History * Patient is adopted Medical History Relation Name Comments No Known Problems Mother Asthma Paternal Aunt 2 Alexandra August High Cholesterol Paternal Aunt 2 Alexandra August Hypertension Paternal Aunt 2 Alexandra August Thyroid Disease Paternal Aunt 2 Alexandra August High Cholesterol Paternal Aunt 3 Kaylah Nitschke Luly angel Caballeroschke is my adopted mom Hypertension Paternal Aunt 3 Kaylah Nitschke Cancer Paternal Grandmother Fabiola Slade High Cholesterol Paternal Grandmother Fabiola Slade Hypertension Paternal Grandmother Fabiola Slade Thyroid Disease Paternal Grandmother Fabiola Slade Anesth Problems Neg Hx Relation Name Status Comments Father Alive Mother Alive Paternal Aunt 1 Alive Paternal Aunt 2 Alexandra August Alive Paternal Aunt 3 Kaylah Nitschke Alive Paternal Grandmother Fabiola Slade Alive Paternal Uncle great Alive Social History Tobacco Use Types Packs/Day Years Used Date Smoking Tobacco: Never Smokeless Tobacco: Former Quit: 04/15/2023 Tobacco Cessation:Counseling Given: Not Answered Comments:Vaping Alcohol Use Standard Drinks/Week Comments Not Currently 2 (1 standard drink = 0.6 oz pur e alcohol) [facility] Utilities Answer Date Recorded In the past 12 months has e electric, gas, oil, or water company threatened to shut off services in your home? No 07/12/2023 Overall Financial Resource Strain (CARDIA) Answe r Date Recorded How hard is it for you to pa y for the very basics like food, housing, medical care, and heating? Not hard at all 07/12/2023 PHQ-2 Answer Date Recorded PHQ-2 Total Score 4 07/12/2023 [facility] [place] of Occupat ional Health - Occupational Stress Questionnaire Answer Date [...] money to get more. Never true 07/12/2023 [facility] IP Transportation Answer D ate Recorded In [...] on file Sexual Orientation Not on file Obstetrics History Para Term AB IAB SAB Ectopic Multiple Livin g Live Births 0 0 0 0 0 0 0 0 0 0 0 Last Filed Vital Signs Vital Sign Reading Time Taken Comments Blood Pressure 121/86 07/03/2024 10:09 AM EDT Pulse 79 07/03/2024 10:09 AM EDT Temperature 37.2 C (98.9 F) 01/01/2024 8:18 PM EST Respiratory Rate 14 07/03/2024 10:0 9 AM EDT Oxygen Saturation 98% 01/01/2024 8:18 PM EST Inhaled Oxygen Concentration - - Weight 106.1 kg (233 lb 12.8 oz) 2024 10:09 AM EDT Height 157.5 cm (5' 2 ) 07/03/2024 10:0 9 AM EDT Body Mass Index 42.76 07/03/2024 10:09 AM EDT Plan of Treatment Health Maintenance Due Date Last Done Comments Wellness Exam Medicare 2003 HPV (1 - 3-dose series) 2015 DTaP/TDaP/Td (1 - Tdap) 2019 Chlamydia Screening 10/16/2024 10/17/2023, 12/29/2022, 08/12/2022, Additional history exists Influenza Vaccine (#1) 2024 , 11/04/2022, 12/30/2021, Additional history exists Cervical Cancer Screening 08/12/2025 Pap Smear 08/12/2025 08/12/2022 Hepatitis B Vaccine Completed 12/23/2020, 07/22/2020, 06/19/2020 COVID-19 Vaccine Completed 12/29/2023, 12/2023, 01/15/2021, Additional history exists Meningococcal B Vaccine Aged Out No l onger eligible based on patient's age to complete this topic Pneumococcal Vaccine 0-49 Aged Out No longer eligible based on patient's age to complete this topic Procedures Procedure Name Priority Date/Time Associated Diagnosis Comments CHLAMYDIA/GC BY TMA STAT 10/17/2023 5:05 PM EDT [facility] CYT[facility]Y REQUEST (PAP ONLY) Routine 08/12/2022 4:27 PM EDT Well female exam with routine gynecological exam from Last 3 Months or Most Recently Relevant to Health Maintenance Results * CHLAMYDIA/GC BY TMA (10/17/2023 5:05 PM EDT) Chlamydia trachomatis Not Detected Not Detected 10/18/2023 12:04 PM EDT PREFERRED [employer] [employer] Neisseria gonorrhoeae Not Detected Not Detected 10/18/2023 12:04 PM EDT [facility] [employer] [employer] Swab SPECIMEN FROM UTERINE CERVIX / Unknown 10/17/2023 5:05 PM EDT 10/17/2023 5:08 PM EDT Narrative PREFERRED [employer] [facility] - 10/18/2023 12:04 PM EDT Testing methodology is scrub wheel operator mediated amplification (TMA) using the Aptima Combo 2 assay from [employer]. A negative result does not completely rule out a Chlamydia trachomatis or Neisseria gonorrhoeae infection due to potential inhibitors or levels present below the limit of detection by this assay. Results are dependent on proper collection and transport of specimen. This test is indicated for medical purposes only and should not be used for legal or forensic purposes. The performance characteristics of this assay were validated by the testing laboratory. This assay is FDA cleared to test the following specimens: clinician-collected endocervical, vaginal, male urethral swab specimens, rectal swabs, and throat/pharyngeal swabs; patient collected vaginal specimens within a clinic setting; Thin Prep Specimens in PreservCyt Solution; and first-stream, unpreserved male and female urine specimens. Detailed methodology is available upon request. Gillian Evans APRN MICROBIOLOGY - GENERAL O RDERABLES Final Result PREFERRED LAB [employer] [address] [facility], [address] [place] [id number] * [facility] CYTOLOGY REQUEST (PAP ONLY) (08/12/2022 4:27 PM EDT) CASE REPORT Gynecologic Cytology Report Case: [id number] Authorizing Provider: Kimberli Christensen Collected: 08/12/2022 1627 DO Niya Ordering Location: [facility] Received: 08/12/2022 1627 First Screen: Faye Vargas CT Specimen: LIQUID-BASED PAP - CERVICAL/ENDOCERV ICAL, Cervix, Endocervical 08/17/2022 9:20 AM EDT [facility] PAP FINAL DIAGNOSIS Negative for intraepithelial lesion or malignancy 08/17/2022 9:20 AM EDT [facility] at 0920 EDT MICROSCOPIC DESCRIPTION Microscopic examination is performed and the findings corroborate the diagnosis. 08/17/2022 9:20 AM EDT [facility] PAP SMEAR ADEQUACY Satisfactory for evaluation 08/17/2022 9:20 AM EDT [facility] SPECIMEN LIMITATIONS Scant cells 08/17/2022 9:20 AM EDT [facility] ENDOCERVICAL T-ZONE Transformation zone present 08/17/2022 9:20 AM EDT [facility] EMBEDDED IMAGES 9:20 AM EDT [facility] PAP DISCLAIMER Note: this specimen was reprocessed due to excessive blood. The Pap Smear is a screening test that aids in the detection of cervical cancer and cancer precursors. Both false positive and false negative results can occur. The test should be used at regular intervals, and positive results should be confirmed before definitive therapy. Processed using the ThinPrep Tunnel Mucker Automated cytology screening device ([employer]). 08/17/2022 9:20 AM EDT [facility] Thin Prep ENDOCERVICAL STRUCTURE / Unknown 08/12/2022 4:27 PM EDT 08/12/2022 4:27 PM EDT us Kimberli Christensen DO CYTOLOGY ORDERABLE S Final Result [facility] [address] [place], [place] [id number] from Last 3 Months or Most Recently Relevant to Health Maintenance Insurance [place] [address] [place] [address] [place] [address] [place] Member Subscriber Plan / Payer (Ef fective 2022-Present) Name:Fernanda Dominguez Relation to Subscriber:Self Name:Fernanda Dominguez Payer ID:Not on file Group ID:Not on file Type:Not on file Address: [address] [place] [id number] [place]ARE [place] PART A [place] B [place] Advance Directives For more information, please contact: [phone] Documents on File Type Date Recorded Patient Data Control Assistant Expl anation GUARDIAN[employer]IP ORDER 04/07/2023 4:25 PM 04/07 ORDER OF APPOINTMENT GUARDIAN GU[employer]IANSH[employer] ORDER 04/10/2021 5:39 AM 06/13, is a full and indefinite order * Full Code (Latest Code Status on File) Date Activated Date Inactivated Comments 07/12/2023 4:26 AM 07/14/2023 4:13 PM * Full Code Date Activated Date Inactivated Comments 05/21/2023 5:34 AM 05/22/2023 10:14 PM * Full Code Date Activated Date Inactivated Comments 08/02/2021 1:39 AM 08/03/2021 11:27 PM * Full Code Date Activated Date Inactivated Comments 05/14/2021 11:32 AM 05/15/2021 5:43 PM Care Teams Inspector Returned Materials Relationship Specialty Start Date End Date iMlagros Reardon MD [address] [facility] [address] [place] [phone] PCP - General Family Medicine 08/21/23
[2024-10-12] MEDS: ACETAMINOPHEN 325MG TAB 650 MG PO (19:13)
--- NOTE | 2024-10-12 19:17 | PC.NURSE ---
Pt medicated for pain and providing urine specimen
[2024-10-12 19:31] LABS: Urine Pregnancy, HCG Qual. Negative (Negative)
[2024-10-12 20:22] VITALS: BP 135/88; PULSE 88; RESP 20; TEMP 36.7; O2SAT 98
--- NOTE | 2024-10-12 20:49 | PC.NURSE ---
Pt aware waiting for tranpsort from [facility]
--- NOTE | 2024-10-12 20:50 | PC.NURSE ---
Contacted [facility] in regards to this patient being transferred back to the [facility] and they stated they had to call their scientific manager and would contact us back.
--- NOTE | 2024-10-12 21:07 | PC.NURSE ---
Pt discharged to [facility] staff
== END 2024-10-12 21:08 | disposition home or self-care (01) ==
PROVIDERS: Nurse Practitioner Family; Emergency Provider Student in an Organized Health Care Education/Training Program
DX: S50.02XA Contusion of left elbow, initial encounter (principal)
CPT/HCPCS: 73080; 81025; 99284

== ENCOUNTER 2024-10-23 10:03 | Outpatient (CLI) | payer MEDICARE, MEDICAID, SELFPAY ==
--- OUTSIDE RECORDS SUMMARY | 2020-05-22 09:27 | XMS_ITS | Encounter Summary ---
Author Organization [place] [address] Care Team Providers Care Process Automation Engineer Name Role Phone Pop Abbott MD Primary Care Provider [phone] Encounter Details Date Type Department Care Team (Latest Contact Info) Description 05/22/2020 9:27 AM EDT Hospital Encounter [facility] Referral Lab [address] [place] [phone] Julissa Hamilton, TACOS [address] [place] [address] Encounter for general adult medical examination without abnormal findings Social History Tobacco Use Types Packs/Day Years Used Date Smoking Tobacco: Never Smokeless Tobacco: Former Quit: 04/15/2023 Comments:Vaping Alcohol Use Standard Drinks/Week Comments Not Currently 2 (1 standard drink = 0.6 oz pur e alcohol) occ [facility] Utilities Answer Date Recorded In the past [...] Date Recorded PHQ-2 Total Score 4 07/12/2023 [facility] - Occupational Stress Questionnaire Answer Date Recorded [...] money to get more. Never true 07/12[facility]2023 [facility] IP Transportation Answer D ate Recorded In [...] Determine Rows 4-10 0 07/12/2023 3:42 AM [facility] Tri Diana, JOSE RAUL * Question Answer Date of Assessment Author Little interest or pleasure in doing things 2 07/12/2023 2:08 PM EDT Deborah Vargas MSW Feeling down, depressed, or hopeless 2 07/12/2023 2:08 PM EDT Deborah Vargas MSW PHQ-2 Total Score 4 07/12/2023 2:08 PM EDDeborah Martinez MSW PHQ-9 Total Score 4 07/12/2023 2:08 PM EDT Debroah Vargas MSW * Question Answer Date of [...] 01/01/2024 8:19 PM Yaima Aviles RN * [place] Suicide Severity Rating Scale (Q shift for [...] 06/06/2020 3:01 PM EDT [facility] MPV 10.1 8.8 - 12.5 fL 06/06/2020 3:01 PM EDT [facility] Neut Percent 62.3 % 06/06/2020 3:01 PM EDT [facility] Comment:Neutrophils equals s egs plus bands Imm Gran% 0.7 % 06/06/2020 3:01 PM EDT [facility] Comment:Automated count of m etamyelocytes, myelocytes and promyelocytes. Lymph Percent 24.4 % 06/06/2020 3:01 PM EDT [facility] Millard Percent 9.2 % 06/06/2020 3:01 PM EDT [facility] Eos Percent 2.7 % 06/06/2020 3:01 PM EDT [facility] Baso Percent 0.7 % 06/06/2020 3:01 PM EDT [facility] Neut # 6.7(H) 1.6 - 6.1 x10(3)/[facility] 06/06/2020 3:01 PM EDT [facility] Comment:Neutrophils equals s egs plus bands IMMGRAN# 0.1 0.0 - 0.1 x10(3)/[facility] 06/06/2020 3:01 PM EDT [facility] Comment:Automated count of m etamyelocytes, myelocytes and promyelocytes. An absolute IG <0.1 is reported as 0.0. Lymph # 2.6 1.2 - 3.9 x10(3)/[facility] 06/06/2020 3:01 PM EDT [facility] Millard # 1.0(H) 0.3 - 0.9 x10(3)/[facility] 06/06/2020 3:01 PM EDT [facility] Eos# 0.3 0.0 - 0.5 x10(3)/[facility] 06/06/2020 3:01 PM EDT [facility] Baso # 0.1 0.0 - 0.1 x10(3)/[facility] 06/06/2020 3:01 PM EDT [facility] Blood Venipuncture / Unknown 06/06/2020 9:29 AM EDT 06/06/2020 9:29 AM EDT us Julissa Hamilton NP HEMATOLOGY ORDERABLES Final Resu lt [facility] [address] [facility] [facility] , [address] [place] [phone] * (ABNORMAL) COMPREHENSIVE METABOLIC PANEL (06/06/2020 9:29 [...] U/L 06/06/2020 4:32 PM EDT [facility] Alk Phos 82 36 - 123 U/L 06/06/2020 4:32 PM EDT [facility] GFR Afr Am 121 >=60 mL/min/1.7 3 m2 06/06/2020 4:32 PM EDT [facility] GFR Non Afr Am 105 >=60 mL/min/1.7 3 m2 06/06/2020 4:32 PM EDT [facility] Comment: This estimated GFR was calculated [...] CHEMISTRY ORDERABLES Final Resul t [facility], [address], [place] [address] [facility] [address] [place] [address] * (ABNORMAL) LIPID PANEL REFLEX (06/06/2020 9:29 AM EDT) Cholesterol 202(H) <200 mg/dL 06/06/2020 4:35 PM EDT [facility] [employer] [facility] Comment: < 200 Desirable 200 - 239 Borderline High >= 240 High Triglyceride 182(H) <150 mg/dL 06/06/2020 4:35 PM EDT [facility] [employer] [facility] Comment: < 150 Normal 150 - 199 Borderline High 200 - 499 High >= 500 Very High HDL 52 >=40 mg/dL 06/06/2020 4:35 PM EDT [facility] [facility] Comment: > 60 Optimal 40 - 60 Acceptable < 40 Low LDL Direct 117(H) <100 mg/dL 06/06/2020 4:35 PM EDT [facility] [facility], [facility] Non-HDL-C Calculated 150(H) <=129 mg/dL 06/06/2020 4:35 PM EDT [facility] Comment: <130 Desirable 130-159 Above Desirable 160-189 Borderline High 190-219 High >= 220 Very High Fasting Specimen? Yes None 021 4:35 PM EDT [facility] Blood Venipuncture / Unknown 06/06/2020 9:29 AM EDT 06/06/2020 9:29 AM EDT Julissa Hamilton NP CHEMISTRY ORDERABLES Final Resul t Performing Organization Address [facility] de Phone Number [facility] [employer] , [place] [phone] [facility] [address] [place], [place] [phone] * TSH REFLEX (06/06/2020 9:29 AM EDT) TSH Reflex 2.890 0.270 - 4.200 mcIU/mL 06/06/2020 4:23 PM EDT [facility] [employer] [facility], [facility] Blood Venipuncture / Unknown 06/06/2020 9:29 AM EDT 06/06/2020 9:29 AM EDT Narrative [facility] - 06/06/2020 4:23 PM EDT Ingestion of israel doses of biotin (>5 mg/day) taken within 8 hours of drawing blood sample can interfere with this immunoassay test. us Julissa Hamilton NP CHEMISTRY ORDERABLES Final Resul t Performing Organization Address [facility] Co de Phone Number [facility] [employer] , [place] [address] * HIV AG/AB (06/06/2020 9:29 AM EDT) HIV Ag/AB Non-Reactiv e Non-Reacti ve 06/06/2020 5:20 PM EDT [facility] Blood Venipuncture / Unknown 06/06/2020 9:29 AM EDT 06/06/2020 9:29 AM EDT Julissa Hamilton NP IMMUNOLOGY ORDERABLES Final Resu lt Performing Organization Address [facility] de Phone Number [facility] [employer] [facility] [address] [facility] , [address] [place] [phone] * HEMOGLOBIN A1C (06/06/2020 9:29 AM EDT) Pathologist [facility] Hgb A1C 5.6 4.2 - 5.6 % 06/06/2020 3:47 PM EDT [facility] [employer] [facility] Est. Avg Glucose 114 mg/dL 06/06/2020 3:47 PM EDT [facility] [employer] Blood Venipuncture / Unknown 06/06/2020 9:29 AM EDT 06/06/2020 9:29 AM EDT Narrative [facility] [employer] - 06/06/2020 3:47 PM EDT REFERENCE RANGE: [...] ORDERABLES Final Resul t Performing Organization Address [facility] Co de Phone Number [facility] [employer] [facility] [address] [facility] , [place] [address] * HEPATITIS C SCREEN (06/06/2020 9:29 AM EDT) Pathologist [facility] Hep C Ab Non-Reactiv e Non-Reacti ve 06/06/2020 5:20 PM EDT [facility] [employer] [facility] Blood Venipuncture / Unknown 06/06/2020 9:29 AM EDT 06/06/2020 9:29 AM EDT Julissa Hamilton NP HEMATOLOGY ORDERABLES Final Resu lt Performing Organization Address [facility] de Phone Number [facility] [address], [place] [address] * HEPATITIS B SURFACE ANTIBODY (06/06/2020 9:29 AM EDT) Hep Bs Ab <3.08 mIU/mL 06/06/2020 5:19 PM EDT [facility] Comment: < 8.00 mIU/mL - NON REACTIVE [...] ORDERABLES Final Resu lt Performing Organization Address [facility] de Phone Number [facility] [address], [place] [address] documented in this encounter Visit [...] documented as of this encounter Care Teams Process Automation Engineer Relationship Specialty Start Date End Date Pop Abbott MD [address] [place] [phone] PCP - General Pediatrics-Adolescent Medicine 07/17/16 07/01/20 documented as of this encounter
--- OUTSIDE RECORDS SUMMARY | 2022-07-15 14:19 | XMS_ITS | Encounter Summary ---
Author Organization [place] [address] Care Team Providers Care Social Science Manager Name Role Phone Julissa Hamilton NP Primary Care Provider [phone] Encounter Details Date Type Department Care Team (Latest Contact Info) Description 07/15/2022 2:19 PM EDT Hospital Encounter [facility] Referral Lab 1 [place] [address] Tri Anand APRN [address] [place], [place] [phone] Encounter for general adult medical examination without abnormal findings Social History Tobacco Use Types Packs/Day Years Used Date Smoking Tobacco: Never Smokeless Tobacco: Former Quit: 04/15/2023 Comments:Vaping Alcohol Use Standard Drinks/Week Comments Not Currently 2 (1 standard drink = 0.6 oz pur e alcohol) occ [facility] Utilities Answer Date Recorded In the past 12 months has [employer], gas, oil, or water company threatened to shut off services in your home? No 07/12/2023 Overall Financial Resource Strain (CARDIA) Bertrand shanks Date Recorded How hard is it for you to pa y for the very basics like food, housing, medical care, and heating? Not hard at all 07/12/2023 PHQ-2 Answer Date Recorded PHQ-2 Total Score 4 07/12/2023 [facility] of Occupat ional [facility] - Occupational Stress Questionnaire Answer Date Recorded [...] money to get more. Never true 07/12/2023 [facility] IP Transportation Answer D ate Recorded In [...] 01/01/2024 8:19 PM Yaima Aviles RN * [place] Suicide Severity Rating Scale (Q shift for [...] - 4.200 mcIU/mL 07/27/2022 3:07 PM EDT [facility] [employer] Blood VENOUS BLOOD / Unknown Venipuncture / Unknown 07/27/2022 11:21 AM EDT 07/27/2022 11:21 AM EDT Narrative [facility] [employer] - 07/27/2022 3:07 PM EDT Ingestion of israel doses of biotin (>5 mg/day) taken within 8 hours of drawing blood sample can interfere with this immunoassay test. Tri Anand APRN CHEMISTRY ORDERABLES Final Res ult Performing Organization Address [facility]/ZIP Co de Phone Number [facility] [employer] [address] , [place] [address] * HIV AG/AB (07/27/2022 11:21 AM EDT) [facility] HIV Ag/AB Non-Reactiv e Non-Reacti ve 07/27/2022 3:40 PM EDT [facility] Blood VENOUS BLOOD / Unknown Venipuncture / Unknown 07/27/2022 11:21 AM EDT 07/27/2022 11:21 AM EDT Tri Anand APRN IMMUNOLOGY ORDERABLES Final Re sult Performing Organization Address [facility]/ZIP Co de Phone Number [facility] [employer] [facility] [address] [facility] , [place] [address] * (ABNORMAL) LIPID SCREEN (07/27/2022 11:21 AM EDT) [facility] Cholesterol 174 <200 mg/dL 07/27/2022 3:07 PM EDT [facility], [facility] Comment: < 200 Desirable 200 - 239 Borderline High >= 240 High Triglyceride 84 <150 mg/dL 07/27/2022 3:07 PM EDT [facility], [facility] Comment: < 150 Normal 150 - 199 Borderline High 200 - 499 High >= 500 Very High HDL 54 >=40 mg/dL 07/27/2022 3:07 PM EDT [facility] [employer], [facility] Comment: > 60 Optimal 40 - 60 Acceptable < 40 Low LDL Calculated 104(H) <100 mg/dL 07/27/2022 3:07 PM EDT [facility], [facility] Comment: < 100 Optimal 100 - 129 Near or above optimal 130 - 159 Borderline High 160 - 189 High >= 190 Very High Non-HDL-C Calculated 120 <=129 mg/dL 07/27/2022 3:07 PM EDT [facility] [facility], [facility] Comment: <130 Desirable 130-159 Above Desirable 160-189 Borderline High 190-219 High >= 220 Very High Fasting Specimen? Yes None 023 3:07 PM EDT [facility] Blood VENOUS BLOOD / Unknown Venipuncture / Unknown 07/27/2022 11:21 AM EDT 07/27/2022 11:21 AM EDT Tri Anand APRN CHEMISTRY ORDERABLES Final Res ult [facility], [facility] [address] [facility], [address] [place] [phone] [facility] [address] [place] [address] * HEMOGLOBIN A1C (07/27/2022 11:21 AM EDT) [facility] Signature Hgb A1C 5.3 4.2 - 5.6 % 07/27/2022 3:15 PM EDT [facility], [facility] Est. Avg Glucose 105 mg/dL 07/27/2022 3:15 PM EDT [facility] [employer] [facility], [facility] Blood VENOUS BLOOD / Unknown Venipuncture / Unknown 07/27/2022 11:21 AM EDT 07/27/2022 11:21 AM EDT Narrative [facility] [employer] [facility] - 07/27/2022 3:15 PM EDT REFERENCE RANGE: Normal: 4.0-5.6% Pre-diabetes: 5.7-6.4% Provisional diagnosis of diabetes: >6.4% Hgb F>10% and anything which shortens red cell survival, such as hemolytic anemia, or unstable hemoglobin variants such as HbSS, HbSC, or HbCC, will lower the HbA1c value associated with a given level of glycemic control. Tri Anand APRN CHEMISTRY ORDERABLES Final Res ult Performing Organization Address [facility] Co de Phone Number [facility] , [place] [address] * HCV ANTIBODY SCREEN W/ REFLEX (07/27/2022 11:21 AM EDT) Pathologist [facility] Hep C Ab Non-Reactiv e Non-Reacti ve 07/27/2022 3:41 PM EDT [facility] [employer] [facility] Blood VENOUS BLOOD / Unknown Venipuncture / Unknown 07/27/2022 11:21 AM EDT 07/27/2022 11:21 AM EDT Tri Anand APRN HEMATOLOGY ORDERABLES Final Re sult Performing Organization Address [facility] de Phone Number [facility] , [place] [address] * HEPATITIS B SURFACE ANTIBODY (07/27/2022 11:21 AM EDT) Hep Bs Ab 22.35 mIU/mL 07/27/2022 3:40 PM EDT [facility] [employer] [facility] Comment: < 8.00 mIU/mL - NON REACTIVE [...] ORDERABLES Final Re sult Performing Organization Address [facility] Co de Phone Number [facility] [address] [facility] , [place] [address] * HEPATIC FUNCTION PANEL (07/27/2022 [...] ORDERABLES Final Res ult Performing Organization Address [facility]/ZIP Co de Phone Number [facility] [address], [place] [address] * BASIC METABOLIC PANEL (07/27/2022 11:21 AM EDT) Sodium 140 136 - 145 mmol/L 07/27/2022 3:07 PM EDT [facility] Potassium 4.3 3.5 - 5.0 mmol/L 07/27/2022 3:07 PM EDT [facility], [facility] Chloride 105 98 - 107 mmol/L 07/27/2022 3:07 PM EDT [facility], [facility] Total CO2 23 22 - 29 mmol/L 07/27/2022 3:07 PM EDT [facility], [facility] Anion Gap 12 7 - 16 mmol/L 07/27/2022 3:07 PM EDT [facility], [facility] Calcium 9.3 8.6 - 10.4 mg/dL 07/27/2022 3:07 PM EDT [facility], [facility] Glucose Lvl 94 74 - 100 mg/dL 07/27/2022 3:07 PM EDT [facility], [facility] BUN 7 6 - 20 mg/dL 07/27/2022 3:07 PM EDT [facility] LAB [facility], [facility] Creatinine 0.82 0.51 - 1.30 mg/dL 07/27/2022 3:07 PM EDT [facility] LAB [facility], [facility] eGFR (CKD-EPIcr 2020) 103 >=60 mL/min/1.7 3 m2 07/27/2022 3:07 PM EDT [facility] Comment:Estimated GFR was ca lculated using the CKD-EPIcr (2020) equation refit without race. The equation is recommended by the National Kidney Foundation - [place] Society of Nephrology Task Force. Blood VENOUS BLOOD / Unknown Venipuncture / Unknown 07/27/2022 11:21 AM EDT 07/27/2022 11:21 AM EDT Tri Anand APRN CHEMISTRY ORDERABLES Final Res ult [facility], [address] , [address] [place] [phone] [facility] [address] [place], [place] [phone] * (ABNORMAL) CBC WITH DIFF (07/27/2022 11:21 AM EDT) WBC 10.7(H) 3.7 - 10.3 x10(3)/mcL 07/27/2022 2:43 PM EDT [facility], [facility] RBC 3.98 3.90 - 5.20 x10(6)/mcL 07/27/2022 [...] 2:43 PM EDT [facility] [place] Percent 8.0 % 07/27/2022 2:43 PM EDT [...] 0.0. Lymph # 2.4 1.2 - 3.9 x10(3)/[facility] 07/27/2022 2:43 PM EDT [facility] [place] # 0.9 0.3 - 0.9 x10(3)/[facility] 07/27/2022 2:43 PM EDT [facility] Eos# 0.2 0.0 - 0.5 x10(3)/[facility] 07/27/2022 2:43 PM EDT [facility] Baso # 0.1 0.0 - 0.1 x10(3)/[facility] 07/27/2022 2:43 PM EDT [facility] Blood VENOUS BLOOD / Unknown Venipuncture / Unknown 07/27/2022 11:21 AM EDT 07/27/2022 11:21 AM EDT Tri Anand [employer] HEMATOLOGY ORDERABLES Final Re sult [facility] [address] [facility] , [place] [address] documented in this encounter Visit Diagnoses Diagnosis Encounter for general adult medical examination without abnormal findings Routine general medical examination at a health care facility documented in this encounter Care Teams Social Science Manager Relationship Specialty Start Date End Date Julissa Hamilton NP [address] [phone] PCP - General Nurse Practitioner-Family 07/02/2008/16 documented as of this encounter
--- OUTSIDE RECORDS SUMMARY | 2024-10-23 10:10 | XMS_ITS | Clinical Summary ---
Author Organization [facility] Address [address] [place] [address] Phone Care Team Providers Care [employer] Assistant Name Role Phone Milagros Reardon MD Primary [...] (08/26/2020): Added automatically from request for surgery [id number] Nausea 08/26/2020 10/25/2020 Overview (08/26/2020): Added automatically from request for surgery [id number] Abnormal blood sugar 02/01/2020 024 Abnormal weight gain 02/01/2020 024 Medical clearance for psychiatric admission 03/05/2019 10/25/2020 Generalized abdominal pain 12/08/2018 1 03/23/2020 Overview (12/08/2018): Added automatically from request for surgery [id number] Alternating constipation and diarrhea 12/08/2018 10/25/2020 Overview (12/08/2018): Added automatically from request for surgery [id number] Suicidal ideation 10/27/2018 10/25/2020 MDD (major depressive disord er), recurrent severe, without psychosis 07/04/2018 05/15/2021 Asperger's disorder 07/04/2018 12/13/19 Reactive attachment disorder 07/04/2018 12/13/2019 Impulse control disorder 07/04/2018 Generalized anxiety disorder 07/04/2018 02/07/2024 Biliary colic 05/02/2018 01/13/2023 Immunizations Immunization Administration Dates Next Due PPD Test 03/12/2015 Surgical History Surgery Date Site/Laterality Comments CYST REMOVAL behind right ear ADENOIDECTOMY CHOLECYSTECTOMY, LAPAROSCOPIC 05/13/2018 N/A Laparoscopic Cholecystectomy ; Surgeon: Akosua Calixto MD; Location: [facility] OR; Service: General UPPER GASTROINTESTINAL ENDOSCOPY 02/15/2017 - 02/14/2018 Dr Grossman in [place] COLONOSCOPY 01/31/2019 UPPER GASTROINTESTINAL ENDOSCOPY 09/27/2020 N/A Esophagogastroduodenoscopy with biopsy ; Surgeon: Juan Carlos Ly MD PHD; Location: [facility]; Service: Endoscopy XR INJECT CONTRAST EXISTING TUBE 01/28/2022 XR INJECT CONTRAST EXISTING TUBE 01/28/2022 ABDOMEN SURGERY 2018 gallbladder COLPOSCOPY 2018 Medical History Medical History Date Comments Heartburn Depression Obesity PTSD (post-traumatic stress disorder) Borderline personality disorder (HCC) Diabetes mellitus (HCC) pre diab etic Irritable bowel syndrome Syncope and collapse Anxiety disorder Asperger syndrome Hypertension GERD (gastroesophageal reflux disease) Hyperlipidemia Family History * Patient is adopted Medical History Relation Name Comments No Known Problems Mother Asthma Paternal Aunt 2 Alexandra Mata High Cholesterol Paternal Aunt 2 Alexandra August Hypertension Paternal Aunt 2 Alexandra Mata Thyroid Disease Paternal Aunt 2 Alexandra August High Cholesterol Paternal Aunt 3 Kaylah Nitschke Luly e Nitschke is my adopted mom Hypertension Paternal Aunt 3 Kaylah Nitschke Cancer Paternal Grandmother Fabiola Slade High Cholesterol Paternal Grandmother Fabiola Slade Hypertension Paternal Grandmother Fabiola Slade Thyroid Disease Paternal Grandmother Fabiola Slade Anesth Problems Neg Hx Relation Name Status Comments Father Alive Mother Alive Paternal Aunt 1 Alive Paternal Aunt 2 Alexandra August Alive Paternal Aunt 3 Kaylah Dominguez Alive Paternal Grandmother Fabiola Slade Alive Paternal Uncle great Alive Social History Tobacco Use Types Packs/Day Years Used Date Smoking Tobacco: Never Smokeless Tobacco: Former Quit: 04/15/2023 Tobacco Cessation:Counseling Given: Not Answered Comments:Vaping Alcohol Use Standard Drinks/Week Comments Not Currently 2 (1 standard drink = 0.6 oz pur e alcohol) [facility] Utilities Answer Date Recorded In the past [...] Date Recorded PHQ-2 Total Score 4 07/12/2023 [facility] [place] of Occupat ional Health - Occupational Stress [...] money to get more. Never true 07/12/2023 [facility] IP Transportation Answer D ate Recorded In [...] BY TMA STAT 10/17/2023 5:05 PM EDT [facility] CYTOLOGY REQUEST (PAP ONLY) Routine 08/12/2022 4:27 PM EDT Well female exam with routine gynecological exam from Last 3 Months or Most Recently Relevant to Health Maintenance Results * CHLAMYDIA/GC BY TMA (10/17/2023 5:05 PM EDT) Chlamydia trachomatis Not Detected Not Detected 10/18/2023 12:04 PM EDT PREFERRED [employer] Neisseria gonorrhoeae Not Detected Not Detected 10/18/2023 12:04 PM EDT PREFERRED [employer] [facility] Swab SPECIMEN FROM UTERINE CERVIX / Unknown 10/17/2023 5:05 PM EDT 10/17/2023 5:08 PM EDT Narrative PREFERRED [employer], [facility] - 10/18/2023 12:04 PM EDT Testing methodology is fitting supervisor mediated amplification (TMA) using the Aptima Combo 2 assay from [employer]. A negative result does not completely rule [...] - GENERAL O RDERABLES Final Result PREFERRED [employer] [address] [facility] , [place] [address] * [facility] CYTOLOGY REQUEST (PAP ONLY) (08/12/2022 4:27 PM EDT) CASE REPORT Gynecologic Cytology Report Case: [id number] Authorizing Provider: Kimberli Christensen Collected: 08/12/20221626 DO Niya Ordering Location: [facility] Received: 08/12/2022 1627 First Screen: Faye Vargas CT Specimen: LIQUID-BASED PAP - CERVICAL/ENDOCERV ICAL, Cervix, Endocervical 08/17/2022 9:20 AM EDT [facility] PAP FINAL DIAGNOSIS Negative for intraepithelial lesion or malignancy 08/17/2022 9:20 AM EDT [facility] at 0920 EDT MICROSCOPIC DESCRIPTION Microscopic examination is performed and the findings corroborate the diagnosis. 08/17/2022 9:[address] [facility] PAP SMEAR ADEQUACY Satisfactory for evaluation 08/17/2022 9:[address] [facility] SPECIMEN LIMITATIONS Scant cells 08/17/2022 9:[address] [facility] ENDOCERVICAL T-ZONE Transformation zone present 08/17/2022 9:20 AM EDT [facility] EMBEDDED IMAGES 9:[address] [facility] PAP DISCLAIMER Note: this specimen was reprocessed due to excessive blood. The Pap Smear is a screening test that aids in the detection of cervical cancer and cancer precursors. Both false positive and false negative results can occur. The test should be used at regular intervals, and positive results should be confirmed before definitive therapy. Processed using the ThinPrep Head Transfer Clerk Automated cytology screening device ([employer]). 08/17/2022 9:[address] [facility] Thin Prep ENDOCERVICAL STRUCTURE / Unknown 08/12/2022 4:27 PM EDT 08/12/2022 4:27 PM EDT us Kimberli Christensen DO CYTOLOGY ORDERABLE S Final Result [facility] [address] [place] [id number] from Last 3 Months or Most Recently Relevant to Health Maintenance Insurance [place] [address] [place] [address] [place] [address] [place] [address] [place] Member Subscriber Plan / Payer (Ef fective 2022-Present) Name:Fernanda Dominguez Relation to Subscriber:Self Name:Fernanda Dominguez Payer ID:Not on file Group ID:Not on file Type:Not on file Address: [address] [place] [id number] Advance Directives For more information, please contact: [phone] Documents on File Type Date Recorded Patient Automatic Machine Attendant Expl anation GUARDIANSHIP ORDER 04/07/2023 4:25 PM [...] 11:32 AM 05/15/2021 5:43 PM Care Teams [employer] Assistant Relationship Specialty Start Date End Date Milagros Reardon MD [address] [phone] PCP - General Family Medicine 08/21/23
== END 2024-10-23 23:59 | disposition home or self-care (01) ==
LOC: LAB 10:08
PROVIDERS: PCP Nurse Practitioner Family; Visit Provider Nurse Practitioner Obstetrics & Gynecology
DX: Z34.90 Encounter for supervision of normal pregnancy, unspecified, unspecified trimester (principal); Z3A.00 Weeks of gestation of pregnancy not specified
CPT/HCPCS: 36415; 84144; 84702

== ENCOUNTER 2024-12-28 22:18 | Emergency (ER) | payer MEDICARE, MEDICAID, SELFPAY ==
--- OUTSIDE RECORDS SUMMARY | 2020-05-22 08:27 | XMS_ITS | Encounter Summary ---
Author Organization [facility] [place] [address] Care Team Providers Care Mold Car Pusher Name Role Phone Pop Abbott MD Primary Care Provider [phone] Encounter Details Date Type Department Care Team (Latest Contact Info) Description 05/22/2020 9:27 AM EDT Hospital Encounter [facility] Referral Lab [address] [place] [phone] Julissa Hamilton, TACOS [address] [place] [address] Encounter for general adult medical examination without abnormal findings Social History Tobacco Use Types Packs/Day Years Used Date Smoking Tobacco: Never Smokeless Tobacco: Former Quit: 04/15/2023 Comments:Vaping Alcohol Use Standard Drinks/Week Comments Not Currently 2 (1 standard drink = 0.6 oz pur e alcohol) occ [facility] Utilities Answer Date Recorded In the past 12 months has th e electric, gas, oil, or water company threatened to shut off services in your home? No 07/12/2023 Overall Financial Resource Strain (CARDIA) Bertrand r Date Recorded How hard is it for you to pa y for the very basics like food, housing, medical care, and heating? Not hard at all 07/12/2023 PHQ-2 Answer Date Recorded PHQ-2 Total Score 4 07/12/2023 [facility]ational Stress Questionnaire Answer Date Recorded Do you feel stress - tense, restless, nervous, or anxious, or unable to sleep at night because your mind is troubled all the time - these days? To some extent 07/12/2023 Exercise Vital Sign Answer Date Recorde d On average, how many days pe r week do you engage in moderate to strenuous exercise (like a brisk walk)? 0 days 07/12/2023 On average, how many minutes do you engage in exercise at this level? 0 min 07/12/2023 Hunger Vital Sign Answer Date Recorded Within the past 12 months, y ou worried that your food would run out before you got the money to buy more. Never true 07/12/19 24 Within the past 12 months, t he food you bought just didn't last and you didn't have money to get more. Never true 07/12/2023 [facility] IP Transportation Answer D ate Recorded In the past 12 months, has l ack of reliable transportation kept you from medical appointments, meetings, work or from getting things needed for daily living? No 07/12/2023 Sexually Active Control Partners Comments Yes I.U.D. Male Comments No Sex and Gender Information Value Date Recorded Sex Assigned at Not on file Legal Sex Female 6:02 AM EDT Gender Identity Not on file Sexual Orientation Not on file COVID-19 Exposure Response Date Recorded In the last 10 days, have yo u been in contact with someone who was confirmed or suspected to have Coronavirus/COVID-19? No / Unsure 07/30/2023 2:55 PM EDT documented as of this encounter Functional Status * Alcohol Screening Score Answer Date of Assessment Author 0 07/12/2023 3:42 AM EDT Tri Diana RN * Drug Screening Score Answer Date of Assessment Author 0 08/21/2023 6:04 PM EDT Claude Choe LCSW * Question Answer Date of Assessment Author How often do you have a drin k containing alcohol? 0 07/12/2023 3:42 AM EDT Tri Diana, R N How many drinks containing a lcohol do you have on a typical day when you are drinking? 0 07/12/2023 3:42 AM EDT Tri Diana R N How often do you have six or more drinks on one occasion? 0 07/12/2023 3:42 AM KIESHAT Kay Diana RN AUDIT-C to Determine Rows 4-10 0 07/12/2023 3:42 AM KEISHAT Tri Diana, JOSE RAUL * Question Answer Date of Assessment Author Little interest or pleasure in doing things 2 07/12/2023 2:08 PM EDT Deborah Vargas MSW Feeling down, depressed, or hopeless 2 07/12/2023 2:08 PM EDT Deborah Vargas MSW PHQ-2 Total Score 4 07/12/2023 2:08 PM EDDeborah Martinez MSW PHQ-9 Total Score 4 07/12/2023 2:08 PM EDT Deborah Vargas MSW * Question Answer Date of Assessment Author Do you ever wish you weren't alive anymore? (Past 1 Month) 0 08/12/2021 4:30 PM Dinesh Pierre RN Have you thought about doing something to make youself not alive anymore? (Past 1 Month) 0 08/12/2021 4:30 PM Dinesh Pierre RN * Recent Risk Level: Answer Date of Assessment Author No Risk, Screening Complete 08/12/2021 4:30 PM Dinesh Gonzales RN * Suicide Severity Rating Answer Date of Assessment Author No Risk 01/01/2024 8:19 PM Yaima Aviles RN * [place] Suicide Severity Rating Scale (Q shift for moderate and high) Question Answer Date of Assessment Author 1. In the past month, have you wished you were or wished you could go to sleep and not wake up? 0 01/01/2024 8:19 PM Yaima Aviles RN 2. In the past month, have you actually had any thoughts of killing yourself? (If no, skip to question 6) 0 01/01/2024 8:19 PM Yaima Aviles RN 6. Have you ever done anything, started to do anything, or prepared to do anything to end your life? 0 01/01/2024 8:19 PM Yaima Aviles, JOSE RAUL * Question Answer Date of Assessment Author 3. In the past month, have you been thinking about how you might do this? 2 08/21/2023 5:59 PM EDT Jackie Choe LCSW 4. In the past month, have you had these thoughts and had some intention of acting on them? 20 08/21/2023 5:59 PM EDT Jackie Choe LCSW 5. In the past month, have you started to work out or worked out the details of how to kill yourself? 20 08/21/2023 5:59 PM EDT Jackie Choe LCSW Was this within the past 3 months? 20 08/21/2023 5:59 PM EDT Jackie Choe LCSW documented as of this encounter Plan of Treatment Not on file documented as of this encounter Results * (ABNORMAL) CBC WITH DIFF (06/06/2020 9:29 AM EDT) WBC 10.8(H) 3.7 - 10.3 x10(3)/mcL 06/06/2020 3:01 PM EDT [facility] RBC 4.39 3.90 - 5.20 x10(6)/mcL 06/06/2020 3:01 PM EDT [facility] Hgb 12.1 11.2 - 15.7 g/dL 06/06/2020 3:01 PM EDT [facility] Hct 38.2 34.0 - 45.0 % 06/06/2020 3:01 PM EDT [facility] MCV 87.0 80.0 - 100.0 fL 06/06/2020 3:01 PM EDT [facility] MCH 27.6 26.0 - 34.0 pg 06/06/2020 3:01 PM EDT [facility] MCHC 31.7 30.7 - 35.5 g/dL 06/06/2020 3:01 PM EDT [facility] RDW 13.2 <=14.9 % 06/06/2020 3:01 PM EDT [facility] Platelet 381(H) 155 - 369 x10(3)/mcL 06/06/2020 3:01 PM EDT [facility] MPV 10.1 8.8 - 12.5 fL 06/06/2020 3:01 PM EDT [facility] Neut Percent 62.3 % 06/06/2020 3:01 PM EDT [facility] Comment:Neutrophils equals s egs plus bands Imm Gran% 0.7 % 06/06/2020 3:01 PM EDT [facility] Comment:Automated count of m etamyelocytes, myelocytes and promyelocytes. Lymph Percent 24.4 % 06/06/2020 3:01 PM EDT [facility] [place] Percent 9.2 % 06/06/2020 3:01 PM EDT [facility] Eos Percent 2.7 % 06/06/2020 3:01 PM EDT [facility] Baso Percent 0.7 % 06/06/2020 3:01 PM EDT [facility] Neut # 6.7(H) 1.6 - 6.1 x10(3)/[facility] 06/06/2020 3:01 PM EDT [facility] Comment:Neutrophils equals s egs plus bands IMMGRAN# 0.1 0.0 - 0.1 x10(3)/[facility] 06/06/2020 3:01 PM EDT [facility] Comment:Automated count of m etamyelocytes, myelocytes and promyelocytes. An absolute IG <0.1 is reported as 0.0. Lymph # 2.6 1.2 - 3.9 x10(3)/[facility] 06/06/2020 3:01 PM EDT [facility] [place] # 1.0(H) 0.3 - 0.9 x10(3)/[facility] 06/06/2020 3:01 PM EDT [facility] Eos# 0.3 0.0 - 0.5 x10(3)/[facility] 06/06/2020 3:01 PM EDT [facility] Baso # 0.1 0.0 - 0.1 x10(3)/[facility] 06/06/2020 3:01 PM EDT [facility] Blood Venipuncture / Unknown 06/06/2020 9:29 AM EDT 06/06/2020 9:29 AM EDT us Julissa Hamilton NP HEMATOLOGY ORDERABLES Final Resu lt [facility] [address] [facility] , [address] [place] [phone] * (ABNORMAL) COMPREHENSIVE METABOLIC PANEL (06/06/2020 9:29 AM EDT) Sodium 142 136 - 145 mmol/L 06/06/2020 4:32 PM EDT [facility] Potassium 4.3 3.5 - 5.0 mmol/L 06/06/2020 4:32 PM EDT [facility] Chloride 110(H) 98 - 107 mmol/L 06/06/2020 4:32 PM EDT [facility] Total CO2 21(L) 22 - 29 mmol/L 06/06/2020 4:32 PM EDT [facility] Anion Gap 11 7 - 16 mmol/L 06/06/2020 4:32 PM EDT [facility] Calcium 10.1 8.6 - 10.4 mg/dL 06/06/2020 4:32 PM EDT [facility] Glucose Lvl 106(H) 74 - 100 mg/dL 06/06/2020 4:32 PM EDT [facility] BUN 14 6 - 20 mg/dL 06/06/2020 4:32 PM EDT [facility] Creatinine 0.81 0.51 - 1.30 mg/dL 06/06/2020 4:32 PM EDT [facility] Albumin 4.6 3.5 - 5.2 gm/dL 06/06/2020 4:32 PM EDT [facility] Total Protein 7.6 6.4 - 8.3 gm/dL 06/06/2020 4:32 PM EDT [facility] Bili Total 0.1 0.1 - 1.3 mg/dL 06/06/2020 4:32 PM EDT [facility] ALT <5 <=41 U/L 06/06/2020 4:32 PM EDT [facility] AST 15 <=40 U/L 06/06/2020 4:32 PM EDT [facility] Alk Phos 82 36 - 123 U/L 06/06/2020 4:32 PM EDT [facility], [facility] GFR Afr Am 121 >=60 mL/min/1.7 3 m2 06/06/2020 4:32 PM EDT [facility] GFR Non Afr Am 105 >=60 mL/min/1.7 3 m2 06/06/2020 4:32 PM EDT [facility] Comment: This estimated GFR was calculated using CKD-EPI equation which is modified based on ethnicity for Non Americans and Americans. Both results are reported since it is not always possible to determine the patient's ethnicity. This equation should only be used for individuals 18 and older. It has not been validated for use with the elderly (>70 years), women, or in some racial or ethnic subgroups, such as Hispanics. The equation will be less accurate in people with differences in nutritional status or muscle mass. Blood Venipuncture / Unknown 06/06/2020 9:29 AM EDT 06/06/2020 9:29 AM EDT us Julissa Hamilton NP CHEMISTRY ORDERABLES Final Resul t [facility], [address], [place] [address] [facility] [address] [place] [address] * (ABNORMAL) LIPID PANEL REFLEX (06/06/2020 9:29 AM EDT) Cholesterol 202(H) <200 mg/dL 06/06/2020 4:35 PM EDT [facility] [email or web address] Comment: < 200 Desirable 200 - 239 Borderline High >= 240 High Triglyceride 182(H) <150 mg/dL 06/06/2020 4:35 PM EDT [facility] [email or web address] Comment: < 150 Normal 150 - 199 Borderline High 200 - 499 High >= 500 Very High HDL 52 >=40 mg/dL 06/06/2020 4:35 PM EDT [facility] [email or web address] Comment: > 60 Optimal 40 - 60 Acceptable < 40 Low LDL Direct 117(H) <100 mg/dL 06/06/2020 4:35 PM EDT [facility] [email or web address] Non-HDL-C Calculated 150(H) <=129 mg/dL 06/06/2020 4:35 PM EDT [email or web address] Comment: <130 Desirable 130-159 Above Desirable 160-189 Borderline High 190-219 High >= 220 Very High Fasting Specimen? Yes None 021 4:35 PM EDT [facility] Blood Venipuncture / Unknown 06/06/2020 9:29 AM EDT 06/06/2020 9:29 AM EDT Julissa Hamilton NP CHEMISTRY ORDERABLES Final Resul t Performing Organization Address [facility] de Phone Number [facility] [email or web address] , [place] [phone] [facility] [address] [place], [place] [id number] * TSH REFLEX (06/06/2020 9:29 AM EDT) TSH Reflex 2.890 0.270 - 4.200 mcIU/mL 06/06/2020 4:23 PM EDT [facility] [email or web address], [facility] Blood Venipuncture / Unknown 06/06/2020 9:29 AM EDT 06/06/2020 9:29 AM EDT Narrative [email or web address] - 06/06/2020 4:23 PM EDT Ingestion of israel doses of biotin (>5 mg/day) taken within 8 hours of drawing blood sample can interfere with this immunoassay test. us Julissa Hamilton NP CHEMISTRY ORDERABLES Final Resul t Performing Organization Address [facility] Co de Phone Number [facility] [employer] , [place] [address] * HIV AG/AB (06/06/2020 9:29 AM EDT) HIV Ag/AB Non-Reactiv e Non-Reacti ve 06/06/2020 5:20 PM EDT [facility] Blood Venipuncture / Unknown 06/06/2020 9:29 AM EDT 06/06/2020 9:29 AM EDT Julissa Hamilton NP IMMUNOLOGY ORDERABLES Final Resu lt Performing Organization Address [facility] de Phone Number [facility] [facility] [address] [facility] , [address] [place] [phone] * HEMOGLOBIN A1C (06/06/2020 9:29 AM EDT) Pathologist [facility] Hgb A1C 5.6 4.2 - 5.6 % 06/06/2020 3:47 PM EDT [facility] Est. Avg Glucose 114 mg/dL 06/06/2020 3:47 PM EDT [facility] [employer] Blood Venipuncture / Unknown 06/06/2020 9:29 AM EDT 06/06/2020 9:29 AM EDT Narrative [facility] [employer] - 06/06/2020 3:47 PM EDT REFERENCE RANGE: Normal: 4.0-5.6% Pre-diabetes: 5.7-6.4% Provisional diagnosis of diabetes: >6.4% Hgb F>10% and anything which shortens red cell survival, such as hemolytic anemia, or unstable hemoglobin variants such as HbSS, HbSC, or HbCC, will lower the HbA1c value associated with a given level of glycemic control. us Julissa Hamilton NP CHEMISTRY ORDERABLES Final Resul t Performing Organization Address [facility] Co de Phone Number [facility] [address] [facility] , [place] [address] * HEPATITIS C SCREEN (06/06/2020 9:29 AM EDT) Pathologist [facility] Hep C Ab Non-Reactiv e Non-Reacti ve 06/06/2020 5:20 PM EDT [facility] Blood Venipuncture / Unknown 06/06/2020 9:29 AM EDT 06/06/2020 9:29 AM EDT Julissa Hamilton NP HEMATOLOGY ORDERABLES Final Resu lt Performing Organization Address [facility] de Phone Number [facility] [address], [place] [address] * HEPATITIS B SURFACE ANTIBODY (06/06/2020 9:29 AM EDT) Hep Bs Ab <3.08 mIU/mL 06/06/2020 5:19 PM EDT [facility] Comment: < 8.00 mIU/mL - NON REACTIVE (Not immune to HBV infection) 8.0 - 11.99 mIU/mL - GRAYZONE (Immune status should be further assessed by considering other factors such as clinical status, follow up testing, associated risk factors, and the use of additional diagnostic information.) >= 12.00 mIU/mL - REACTIVE (Immune to HBV infection.) Blood Venipuncture / Unknown 06/06/2020 9:29 AM EDT 06/06/2020 9:29 AM EDT Julissa Hamilton NP IMMUNOLOGY ORDERABLES Final Resu lt Performing Organization Address [facility] de Phone Number [facility] [address], [place] [address] documented in this encounter Visit Diagnoses Diagnosis Encounter for general adult medical examination without abnormal findings Routine general medical examination at a health care facility documented in this encounter Additional Health Concerns Infection Onset Date Last Indicated Resolved Time R/O COVID-19 11/20/2020 11/20/2020 11/20/2020 11:2 1 PM EDT R/O COVID-19 01/16/2021 01/16/2021 01/16/2021 4:05 AM EST R/O COVID-19 08/01/2021 08/01/2021 08/01/2021 11:3 0 PM EDT R/O C-Diff 08/02/2021 08/03/2021 08/03/2021 2:20 PM EDT R/O COVID-19 12/21/2021 12/21/2021 12/21/2021 4:43 PM EST R/O COVID-19 12/27/2021 12/27/2021 12/27/2021 11:0 9 PM EST R/O COVID-19 12/31/2021 12/31/2021 12/31/2021 10:1 1 PM EST R/O COVID-19 01/10/2022 01/10/2022 01/10/2022 7:45 PM EST documented as of this encounter Care Teams Mold Car Pusher Relationship Specialty Start Date End Date Pop Abbott MD [address] [place] [phone] PCP - General Pediatrics-Adolescent Medicine 07/17/16 07/01/20 documented as of this encounter
--- OUTSIDE RECORDS SUMMARY | 2022-07-15 13:19 | XMS_ITS | Encounter Summary ---
Author Organization [place] [address] Care Team Providers Care Angle Furnaceman Name Role Phone Julissa Hamilton NP Primary Care Provider [phone] Encounter Details Date Type Department Care Team (Latest Contact Info) Description 07/15/2022 2:19 PM EDT Hospital Encounter [facility] Referral Lab 1 [place] [address] Tri Anand APRN [address] [place], [place] [phone] Encounter for general adult medical examination without abnormal findings Social History Tobacco Use Types Packs/Day Years Used Date Smoking Tobacco: Never Smokeless Tobacco: Former Quit: 04/15/2023 Comments:Vaping Alcohol Use Standard Drinks/Week Comments Not Currently 2 (1 standard drink = 0.6 oz pur e alcohol) occ [facility] Utilities Answer Date Recorded In the past 12 months has [employer], gas, oil, or water company threatened to shut off services in your home? No 07/12/2023 Overall Financial Resource Strain (CARDIA) Bertrand r Date Recorded How hard is it for you to pa y for the very basics like food, housing, medical care, and heating? Not hard at all 07/12/2023 PHQ-2 Answer Date Recorded PHQ-2 Total Score 4 07/12/2023 [facility] - Occupational Stress Questionnaire Answer Date Recorded [...] money to get more. Never true 07/12/2023 [facility] IP Transportation Answer D ate Recorded [...] Author 0 07/12/2023 3:42 AM EDT Tri Diana, RN * Drug Screening Score Answer Date of Assessment Author 0 08/21/2023 6:04 PM EDT Claude Choe LCSW * Question Answer Date of Assessment Author How often do you have a drin k containing alcohol? 0 07/12/2023 3:42 AM EDT Tri Diana, Ana N How many drinks containing a lcohol do you have on a typical day when you are drinking? 0 07/12/2023 3:42 AM EDT Tri Diana R N How often do you have six or more drinks on one occasion? 0 07/12/2023 3:42 AM EDT Kay Diana RN AUDIT-C to Determine Rows 4-10 0 07/12/2023 3:42 AM KIESHAT Tri Diana RN * Question Answer Date of Assessment Author Little interest or pleasure in doing things 2 07/12/2023 2:08 PM EDT Deborah Vargas MSW Feeling down, depressed, or hopeless 2 07/12/2023 2:08 PM EDT Deborah Vargas MSW PHQ-2 Total Score 4 07/12/2023 2:08 PM EDT Deborah Vargas MSW PHQ-9 Total Score 4 07/12/2023 2:08 PM EDT Deborah Vargas MSW * Suicide Severity Rating Answer Date of Assessment Author No Risk 01/01/2024 8:19 PM Yaima Aviles RN * [place] Suicide Severity Rating Scale (Q shift for [...] your life? 0 01/01/2024 8:19 PM Yaima Aviles RN * Question Answer Date of Assessment Author 3. In the past month, have you been thinking about how you might do this? 2 08/21/2023 5:59 PM KIESHAT Jackie Choe LCSW 4. In the past [...] documented as of this encounter Results * TSH REFLEX (07/27/2022 11:21 AM EDT) Pathologist [facility] TSH Reflex 0.937 0.270 - 4.200 mcIU/mL 07/27/2022 3:07 PM EDT [facility] [employer] Blood VENOUS BLOOD / Unknown Venipuncture / Unknown 07/27/2022 11:21 AM EDT 07/27/2022 11:21 AM EDT Narrative [facility] [employer] - 07/27/2022 3:07 PM EDT Ingestion of israel doses of biotin (>5 mg/day) taken within 8 hours of drawing blood sample can interfere with this immunoassay test. Tri Anand APRN CHEMISTRY ORDERABLES Final Res ult Performing Organization Address [facility]/ZIP Co de Phone Number [facility] [employer] [address] , [place] [address] * HIV AG/AB (07/27/2022 11:21 AM EDT) [facility] HIV Ag/AB Non-Reactiv e Non-Reacti ve 07/27/2022 3:40 PM EDT [employer] Blood VENOUS BLOOD / Unknown Venipuncture / Unknown 07/27/2022 11:21 AM EDT 07/27/2022 11:21 AM EDT Tri Anand APRN IMMUNOLOGY ORDERABLES Final Re sult Performing Organization Address [facility]/ZIP Co de Phone Number [facility] [employer] [facility] [address] [facility] , [place] [address] * (ABNORMAL) LIPID SCREEN (07/27/2022 11:21 AM EDT) [facility] Cholesterol 174 <200 mg/dL 07/27/2022 3:07 PM EDT [facility] Comment: < 200 Desirable 200 - 239 Borderline High >= 240 High Triglyceride 84 <150 mg/dL 07/27/2022 3:07 PM EDT [facility], [facility] Comment: < 150 Normal 150 - 199 Borderline High 200 - 499 High >= 500 Very High HDL 54 >=40 mg/dL 07/27/2022 3:07 PM EDT [facility] [employer], [facility] Comment: > 60 Optimal 40 - 60 Acceptable < 40 Low LDL Calculated 104(H) <100 mg/dL 07/27/2022 3:07 PM EDT [facility] Comment: < 100 Optimal 100 - 129 Near or above optimal 130 - 159 Borderline High 160 - 189 High >= 190 Very High Non-HDL-C Calculated 120 <=129 mg/dL 07/27/2022 3:07 PM EDT [facility] [employer], [facility] Comment: <130 Desirable 130-159 Above Desirable 160-189 Borderline High 190-219 High >= 220 Very High Fasting Specimen? Yes None 023 3:07 PM EDT [facility] Blood VENOUS BLOOD / Unknown Venipuncture / Unknown 07/27/2022 11:21 AM EDT 07/27/2022 11:21 AM EDT Tri Anand APRN CHEMISTRY ORDERABLES Final Res ult [facility], [facility] [address] [facility] [place], [address] [place] [phone] [facility] [address] [place] [address] * HEMOGLOBIN A1C (07/27/2022 11:21 AM EDT) [facility] Signature Hgb A1C 5.3 4.2 - 5.6 % 07/27/2022 3:15 PM EDT [facility] Est. Avg Glucose 105 mg/dL 07/27/2022 3:15 PM EDT [facility] [employer], [facility] Blood VENOUS BLOOD / Unknown Venipuncture / Unknown 07/27/2022 11:21 AM EDT 07/27/2022 11:21 AM EDT Narrative [facility] [employer] [facility] - 07/27/2022 3:15 PM EDT REFERENCE RANGE: Normal: 4.0-5.6% Pre-diabetes: 5.7-6.4% Provisional diagnosis of diabetes: >6.4% Hgb F>10% and anything which shortens red cell survival, such as hemolytic anemia, or unstable hemoglobin variants such as HbSS, HbSC, or HbCC, will lower the HbA1c value associated with a given level of glycemic control. Tri Anand APRN CHEMISTRY ORDERABLES Final Res ult Performing Organization Address [facility] Co de Phone Number [facility] [employer] , [place] [address] * HCV ANTIBODY SCREEN W/ REFLEX (07/27/2022 11:21 AM EDT) Pathologist [facility] Hep C Ab Non-Reactiv e Non-Reacti ve 07/27/2022 3:41 PM EDT [facility] Blood VENOUS BLOOD / Unknown Venipuncture / Unknown 07/27/2022 11:21 AM EDT 07/27/2022 11:21 AM EDT Tri Anand APRN HEMATOLOGY ORDERABLES Final Re sult Performing Organization Address [facility] de Phone Number [facility] [employer] , [place] [address] * HEPATITIS B SURFACE ANTIBODY (07/27/2022 11:21 AM EDT) Hep Bs Ab 22.35 mIU/mL 07/27/2022 3:40 PM EDT [facility] Comment: < 8.00 mIU/mL - NON REACTIVE (Not immune to HBV infection) 8.0 - 11.99 mIU/mL - GRAYZONE (Immune status should be further assessed by considering other factors such as clinical status, follow up testing, associated risk factors, and the use of additional diagnostic information.) >= 12.00 mIU/mL - REACTIVE (Immune to HBV infection.) Blood VENOUS BLOOD / Unknown Venipuncture / Unknown 07/27/2022 11:21 AM EDT 07/27/2022 11:21 AM EDT Tri Anand APRN IMMUNOLOGY ORDERABLES Final Re sult Performing Organization Address [facility] Co de Phone Number [facility] [address] [facility] , [place] [address] * HEPATIC FUNCTION PANEL (07/27/2022 11:21 AM EDT) Total Protein 7.2 6.4 - 8.3 gm/dL 07/27/2022 3:08 PM EDT [facility] Albumin 4.3 3.5 - 5.2 gm/dL 07/27/2022 3:08 PM EDT [facility] Bili Direct <0.2 0.0 - 0.3 mg/dL 07/27/2022 3:08 PM EDT [facility] Bili Total 0.2 0.1 - 1.3 mg/dL 07/27/2022 3:08 PM EDT [facility] AST 23 <=40 U/L 07/27/2022 3:08 PM EDT [facility] ALT 9 <=41 U/L 07/27/2022 3:08 PM EDT [facility] Alk Phos 101 36 - 123 U/L 07/27/2022 3:08 PM EDT [facility] Blood VENOUS BLOOD / Unknown Venipuncture / Unknown 07/27/2022 11:21 AM EDT 07/27/2022 11:21 AM EDT Tri Anand APRN CHEMISTRY ORDERABLES Final Res ult Performing Organization Address [facility]/ZIP Co de Phone Number [facility] [address], [place] [address] * BASIC METABOLIC PANEL (07/27/2022 11:21 AM EDT) Sodium 140 136 - 145 mmol/L 07/27/2022 3:07 PM EDT [facility] Potassium 4.3 3.5 - 5.0 mmol/L 07/27/2022 3:07 PM EDT [facility] Chloride 105 98 - 107 mmol/L 07/27/2022 3:07 PM EDT [facility] Total CO2 23 22 - 29 mmol/L 07/27/2022 3:07 PM EDT [facility] Anion Gap 12 7 - 16 mmol/L 07/27/2022 3:07 PM EDT [facility], [facility] Calcium 9.3 8.6 - 10.4 mg/dL 07/27/2022 3:07 PM EDT [facility], [facility] Glucose Lvl 94 74 - 100 mg/dL 07/27/2022 3:07 PM EDT [facility], [facility] BUN 7 6 - 20 mg/dL 07/27/2022 3:07 PM EDT [facility], [facility] Creatinine 0.82 0.51 - 1.30 mg/dL 07/27/2022 3:07 PM EDT [facility], [facility] eGFR (CKD-EPIcr 2020) 103 >=60 mL/min/1.7 3 m2 07/27/2022 3:07 PM EDT [facility] Comment:Estimated GFR was ca lculated using the CKD-EPIcr (2020) equation refit without race. The equation is recommended by the National Kidney Foundation - [place] Society of Nephrology Task Force. Blood VENOUS BLOOD / Unknown Venipuncture / Unknown 07/27/2022 11:21 AM EDT 07/27/2022 11:21 AM EDT Tri Anand APRN CHEMISTRY ORDERABLES Final Res ult [facility], [address] , [address] [place] [phone] [facility] [address] [place], [place] [phone] * (ABNORMAL) CBC WITH DIFF (07/27/2022 11:21 AM EDT) WBC 10.7(H) 3.7 - 10.3 x10(3)/mcL 07/27/2022 2:43 PM EDT [facility], [facility] RBC 3.98 3.90 - 5.20 x10(6)/mcL 07/27/2022 2:43 PM EDT [facility] Hgb 11.1(L) 11.2 - 15.7 g/dL 07/27/2022 2:43 PM EDT [facility] Hct 35.4 34.0 - 45.0 % 07/27/2022 2:43 PM EDT [facility] MCV 88.9 80.0 - 100.0 fL 07/27/2022 2:43 PM EDT [facility] MCH 27.9 26.0 - 34.0 pg 07/27/2022 2:43 PM EDT [facility] MCHC 31.4 30.7 - 35.5 g/dL 07/27/2022 2:43 PM EDT [facility] RDW 13.2 <=14.9 % 07/27/2022 2:43 PM EDT [facility] Platelet 432(H) 155 - 369 x10(3)/mcL 07/27/2022 2:43 PM EDT [facility] MPV 9.9 8.8 - 12.5 fL 07/27/2022 2:43 PM EDT [facility] Neut Percent 66.5 % 07/27/2022 2:43 PM EDT [facility] Comment:Neutrophils equals s egs plus bands Imm Gran% 0.7 % 07/27/2022 2:43 PM EDT [facility] Comment:Automated count of m etamyelocytes, myelocytes and promyelocytes. Lymph Percent 22.2 % 07/27/2022 2:43 PM EDT [facility] [place] Percent 8.0 % 07/27/2022 2:43 PM EDT [facility] Eos Percent 1.9 % 07/27/2022 2:43 PM EDT [facility] Baso Percent 0.7 % 07/27/2022 2:43 PM EDT [facility] Neut # 7.1(H) 1.6 - 6.1 x10(3)/mcL 07/27/2022 2:43 PM EDT [facility] Comment:Neutrophils equals s egs plus bands IMMGRAN# 0.1 0.0 - 0.1 x10(3)/mcL 07/27/2022 2:43 PM EDT [facility] Comment:Automated count of m etamyelocytes, myelocytes and promyelocytes. An absolute IG <0.1 is reported as 0.0. Lymph # 2.4 1.2 - 3.9 x10(3)/[facility] 07/27/2022 2:43 PM EDT [facility] [place] # 0.9 0.3 - 0.9 x10(3)/[facility] 07/27/2022 2:43 PM EDT [facility] Eos# 0.2 0.0 - 0.5 x10(3)/[facility] 07/27/2022 2:43 PM EDT [facility] Baso # 0.1 0.0 - 0.1 x10(3)/[facility] 07/27/2022 2:43 PM EDT [facility] Blood VENOUS BLOOD / Unknown Venipuncture / Unknown 07/27/2022 11:21 AM EDT 07/27/2022 11:21 AM EDT Tri Anand POWER LINE INSTALLER AND REPAIRER HEMATOLOGY ORDERABLES Final Re sult [facility] [address] [facility] , [place] [address] documented in this encounter Visit Diagnoses Diagnosis Encounter for general adult medical examination without abnormal findings Routine general medical examination at a health care facility documented in this encounter Care Teams Angle Furnaceman Relationship Specialty Start Date End Date Julissa Hamilton NP [address] [phone] PCP - General Nurse Practitioner-Family 07/02/2008/16 documented as of this encounter
[2024-12-28] VITALS (11 sets, daily range): BP systolic 118–137; BP diastolic 77–87; PULSE 67–89; RESP 16; TEMP 36.6; O2SAT 92–99; BMI 42.9
--- OUTSIDE RECORDS SUMMARY | 2024-12-28 22:23 | XMS_ITS | Clinical Summary ---
Author Organization [facility] Address [address] [place] [address] Care Team Providers Care Data Processing Mechanic Name Role Phone Lore Canela Primary Care Provider [phone] Source Comments This information has been disclosed to you from confidential records protectedfrom disclosure by state law. You shall make no further disclosure of thisinformation without the specific, written, and informed release of theindividual to whom it pertains, or as otherwise permitted by law. A generalauthorization for the release of medical or other information is not sufficientfor the purposes of therelease of HIV test results or diagnoses. [id number] Allergies No known active allergies Medications metFORMIN (GLUCOPHAGE-XR) 500 MG 24 hr tablet Take 1 tablet (500 mg total) by mouth in the morning and at bedtime. 90 tablet 3 01/27/2023 Active metoprolol tartrate (LOPRESSOR) 25 MG tablet Take 0.5 tablets (12.5 mg total) by mouth 2 times a day. 180 tablet 3 01/27/2023 Active omeprazole (PRILOSEC) 40 MG capsule Take 1 capsule (40 mg total) by mouth every morning before breakfast. 90 capsule 3 01/27/2023 Active hydrOXYzine HCL (ATARAX) 25 MG tabletIndication s:Major depressive disorder, recurrent severe without psychotic features (CMS-HCC),Anxiet y,Borderline personality disorder (CMS-HCC) Take 1 tablet (25 mg total) by mouth at bedtime. 30 tablet 11 10/06/2023 Active lamoTRIgine (LAMICTAL) 200 MG tabletIndication s:Major depressive disorder, recurrent severe without psychotic features (CMS-HCC) Take 1 tablet (200 mg total) by mouth at bedtime. 90 tablet 10/06/2023 Active cariprazine (VRAYLAR) 3 mg CapIndications:Akosua cotter depressive disorder, recurrent severe without psychotic features (CMS-HCC) Take 1 capsule (3 mg total) by mouth daily. 90 capsule 3 10/06/2023 Active cloNIDine HCL (CATAPRES) 0.1 MG tabletIndication s:Chronic post-traumatic stress disorder (PTSD) Take 1 tablet (0.1 mg total) by mouth at bedtime. 30 tablet 5 12/08/2023 Active sertraline (ZOLOFT) 100 MG tabletIndication s:Major depressive disorder, recurrent severe without psychotic features (CMS-HCC) Take 1.5 tablets (150 mg total) by mouth daily. 90 tablet 3 12/08/2023 Active naltrexone (DEPADE) 50 mg tabletIndication s:Impulse control disorder Take 1 tablet (50 mg total) by mouth daily. 30 tablet 5 12/08/2023 Active atorvastatin (LIPITOR) 10 MG tablet TAKE ONE TABLET BY MOUTH AT BEDTIME 90 tablet 12/27/2023 Active Active Problems Problem Noted Date Diagnosed Date Autism 11/26/2022 Prediabetes 11/26/2022 Gastroparesis 11/26/2022 Major depressive disorder, r ecurrent severe without psychotic features 05/15/2021 Gastroesophageal reflux disease without esophagi tis 10/25/2020 Borderline personality disorder 03/06/2019 Chronic post-traumatic stress disorder (PTSD) Immunizations Immunization Administration Dates Next Due COVID-19, mRNA, Moderna monovalent, age 12+ 12/0 02/2020 COVID-19, mRNA, Pfizer monovalent 06/07/2020,03/2020 COVID-19, mRNA, age 12+ (SPIKEVAX) 02/25/2023 Hepatitis A/B Combined 12/23/2020,07/22/2020,06/2020 Social History Tobacco Use Types Packs/Day Years Used Date Smoking Tobacco: Never Smokeless Tobacco: Never Tobacco Cessation:Counseling Given: Not Answered Comments:Nicotine Vape -> daily Alcohol Use Standard Drinks/Week Comments Not Currently 0 (1 standard drink = 0.6 oz pur e alcohol) PHQ-2 Answer Date Recorded PHQ-2 Total Score 6 04/07/2023 Yearly Questionnaire Answer Date Record ed Do you need any assistance w ith obtaining housing, meals, medication, transportation or medical equipment? No 04/06 Assistance needed for: Not on file 4 Yearly Questionnaire Answer Date Record ed Do you need any assistance w ith obtaining housing, meals, medication, transportation or medical equipment? No 04/06 Assistance needed for: Not on file 4 Yearly Questionnaire Answer Date Record ed Do you need any assistance w ith obtaining housing, meals, medication, transportation or medical equipment? No 04/06 Assistance needed for: Not on file 4 Comments No Sex and Gender Information Value Date Recorded Sex Assigned at Female 04/26/2023 6:33 PM EDT Legal Sex Female 4:49 PM EDT Gender Identity Female 04/06/2023 3:04 PM EST Sexual Orientation Straight 04/26/2023 6: 33 PM EDT Last Filed Vital Signs Vital Sign Reading Time Taken Comments Blood Pressure 124/79 12/08/2023 9:11 AM EDT Pulse 76 12/08/2023 9:11 AM EDT Temperature 36.4 C (97.6 F) 12/06/2023 1:31 PM EDT Respiratory Rate 16 09/30/2020 5:04 PM EDT Oxygen Saturation 96% 12/06/2023 1:31 PM EDT Inhaled Oxygen Concentration 96% 12/06/2023 1 :31 PM EDT Weight 126.1 kg (278 lb) 12/08/2023 9:11 AM EDT Height 157.5 cm (5' 2 ) 12/08/2023 9:11 AM EDT Body Mass Index 50.85 12/08/2023 9:11 AM EDT Plan of Treatment Health Maintenance Due Date Last Done Comments Annual Medicare Wellness Visit (MyChart) 2000 Immunization: HPV (1 - 3-dose series) 2015 Alcohol Misuse Screening 2018 Immunization: DTaP/Tdap/Td (1 - Tdap) 2019 Depression Monitoring (PHQ-9) 07/06/2023 04/07/2023 Diabetes Screening 07/27/2024 07/28/2023, 0 07/16/2022 (Performed Elsewhere) Immunization: COVID-19 ( season) 2024 02/25/2023, 01/15/2021, 06/07/2020, Additional history exists Immunization: Influenza (MESIhart) (#1) 2024 12/30/2021, 11/14/2020, 02/18/2016, Additional history exists Cervical Cancer Screening/Pap Smear (MESIhart) 08/12/2025 08/12/2022 (Performed Elsewhere) Lipid Panel 07/27/2028 07/28/2023, 02/2022 (Performed Elsewhere) Immunization: Hepatitis B Discontinued 2020, 07/22/2020, 06/19/2020 Hepatitis C Screening (MESIhart) Addressed 01/15/2022 (Performed Elsewhere) Overridden with the intention of not completing the topic HIV Screening Completed 07/28/2023 Immunization: Meningococcal ACWY Aged Out No longer eligible based on patient's age to complete this topic Immunization: Pneumococcal Aged Out N o longer eligible based on patient's age to complete this topic Procedures Procedure Name Priority Date/Time Associated Diagnosis Comments HEMOGLOBIN A1C Routine 07/28/2023 1:11 PM EDT Coffee ground emesis HIV 1+2 ANTIBODY/ANTIGEN WITH REFLEX Routine 07/28/2023 1:11 PM EDT Encounter for screening for HIV Coffee ground emesis LIPID PANEL Routine 07/28/2023 1:11 PM EDT Coffee ground emesis from Last 3 Months or Most Recently Relevant to Health Maintenance Results * HIV 1+2 Antibody/Antigen with Reflex (07/28/2023 1:11 PM EDT) HIV 1+2 AB/AGN Nonreactive Nonreactive 07/28/2023 8:59 PM EDT [facility] Serum 07/28/2023 1:11 PM EDT 07/28/2023 8:13 PM EDT Narrative [facility] - 07/28/2023 8:59 PM EDT HIV-1 p24 Antigen and HIV-1/HIV-2 Antibody not detected. Milagros Reardon MD LAB BLOOD ORDERABLES Final R esult Performing Organization Address [facility]/ZIP Co de Phone Number [facility] [address] * Hemoglobin A1c (07/28/2023 1:11 PM EDT) Hemoglobin A1C 4.9 4.0 - 5.6 % 07/28/2023 9:13 PM EDT [facility] Comment: Hemoglobin A1c Interpretation Guidelines: Normal: <5.7% Prediabetes: 5.7-6.4% Diabetes: >6.4% Diagnosis requires two independent tests unless clinical diagnosis is clear. Some clinical conditions, particularly anemias and hemoglobinopathies, may interfere with the diagnostic accuracy of hemoglobin A1c. The recommended goal for diabetic glycemic control (Hemoglobin A1c <7.0%) should be individualized based on duration of diabetes, age/life expectancy, comorbid conditions, known CVD or advanced microvascular complications, hypoglycemia unawareness, and other individual patient considerations. Whole Blood 07/28/2023 1:11 PM EDT 07/28/2023 7:52 PM EDT Result [facility] Milagros Reardon MD LAB BLOOD ORDERABLES Final R esult Performing Organization Address [facility] Co de Phone Number [facility] [address] [facility] * (ABNORMAL) Lipid Profile (07/28/2023 1:11 PM EDT) Non-HDL Cholesterol, Calculated 98 0 - 129 mg/dL 07/28/2023 8:23 PM EDT [facility] Comment: Desirable: < 130 mg/dL Above Desirable: 130-159 mg/dL Borderline High: 160-189 mg/dL High: 190-219 mg/dL Very High: > 219 mg/dL Cholesterol, Total 151 0 - 200 mg/dL 07/28/2023 8:23 PM EDT [facility] Triglycerides 110 10 - 149 mg/dL 07/28/2023 8:23 PM EDT [facility] HDL 53(L) 60 - 92 mg/dL 07/28/2023 8:23 PM EDT [facility] Comment: LIPID PROFILE INTERPRETATION CHOLESTEROL,TOTAL(mg/dL) DESIRABLE: < 200 BORDERLINE HIGH RISK: 200 - 239 HIGH RISK(UNDESIRABLE): =/> 240 LDL CHOLESTEROL(mg/dL) OPTIMAL: < 100 NEAR HIGH OPTIMAL: 100 - 129 BORDERLINE HIGH RISK: 130 - 159 HIGH RISK: 160 - 189 VERY HIGH RISK: =/> 190 HDL CHOLESTEROL(mg/dL) HIGH RISK(UNDESIRABLE): < 40 BORDERLINE: 40 - 59 LOW RISK (DESIRABLE): => 60 TRIGLYCERIDES (mg/dL) NORMAL(DESIRABLE): < 150 BORDERLINE HIGH RISK: 150 - 199 HIGH RISK: 200 - 499 VERY HIGH RISK: =/> 500 Based on the guidlines of the National Cholesterol Education Program (NCEP). Assumes sample obtained after a 9- to 12- hour fast. LDL Cholesterol 76 mg/dL 8:23 PM EDT [facility] Plasma 07/28/2023 1:11 PM EDT 07/28/2023 7:52 PM EDT Narrative [facility] - 07/28/2023 8:23 PM EDT Must the patient be fasting for this test?->No us Milagros Reardon MD LAB BLOOD ORDERABLES Final R esult [facility] [address] [place] [address], [facility] from Last 3 Months or Most Recently Relevant to Health Maintenance Insurance MEDICARE A AND B MEDICAID [place] Care Teams Data Processing Mechanic Relationship Specialty Start Date End Date Lore Canela DO [address] [place] [phone] PCP - General 11/15/24
--- OUTSIDE RECORDS SUMMARY | 2024-12-28 22:23 | XMS_ITS | Clinical Summary ---
Author Organization [facility] Address [address] [place] [address] Phone Care Team Providers Care Buyer Grain Name Role Phone Milagros Reardon MD Primary [...] (08/26/2020): Added automatically from request for surgery [id number] Nausea 08/26/2020 10/25/2020 Overview (08/26/2020): Added automatically from request for surgery [id number] Abnormal blood sugar 02/01/2020 024 Abnormal weight gain 02/01/2020 024 Medical clearance for psychiatric admission 03/05/2019 10/25/2020 Generalized abdominal pain 12/08/2018 1 03/23/2020 Overview (12/08/2018): Added automatically from request for surgery [id number] Alternating constipation and diarrhea 12/08/2018 10/25/2020 Overview (12/08/2018): Added automatically from request for surgery [id number] Suicidal ideation 10/27/2018 10/25/2020 MDD (major depressive [...] Cholecystectomy ; Surgeon: Akosua Calixto MD; Location: [facility]; Service: General UPPER GASTROINTESTINAL ENDOSCOPY 02/15/2017 - 02/14/2018 Dr Grossman in [place] COLONOSCOPY 01/31/2019 UPPER GASTROINTESTINAL ENDOSCOPY 09/27/2020 N/A Esophagogastroduodenoscopy with biopsy ; Surgeon: Juan Carlos Ly MD PHD; Location: [facility] END[facility]; Service: Endoscopy XR INJECT CONTRAST EXISTING [...] drink = 0.6 oz pur e alcohol) [facility] Utilities Answer Date Recorded In the past [...] Date Recorded PHQ-2 Total Score 4 07/12/2023 [facility] Occupat ional Health - Occupational Stress [...] true 07/12/2023 [facility] IP Transportation Answer D ate Recorded [...] series) 2015 DTaP/TDaP/Td (1 - Tdap) 2019 COVID-19 Vaccine ( season) 2024 12/29/2023, 02/25/2023, 01/15/2021, Additional history exists Chlamydia Screening 10/16/2024 10/17/2023, 12/29/2022, 08/12/2022, Additional history exists Influenza Vaccine (#1) 2024 , 11/04/2022, 12/30/2021, Additional history exists Cervical Cancer Screening 08/12/2025 Pap Smear 08/12/2025 08/12/2022 Hepatitis B Vaccine Completed 12/23/2020, 07/22/2020, 06/19/2020 Meningococcal B Vaccine Aged Out No l onger eligible based on patient's age to complete this topic Pneumococcal Vaccine 0-49 Aged Out No longer eligible based on patient's age to complete this topic Procedures Procedure Name Priority Date/Time Associated Diagnosis Comments CHLAMYDIA/GC BY TMA STAT 10/17/2023 5:05 PM EDT POWER [employer] CYTOLOGY REQUEST (PAP ONLY) Routine 08/12/2022 4:27 PM EDT Well female exam with routine gynecological exam from Last 3 Months or Most Recently Relevant to Health Maintenance Results * CHLAMYDIA/GC BY TMA (10/17/2023 5:05 PM EDT) Chlamydia trachomatis Not Detected Not Detected 10/18/2023 12:04 PM EDT [facility] [employer] Neisseria gonorrhoeae Not Detected Not Detected 10/18/2023 12:04 PM EDT [facility]REFERR[facility] Swab SPECIMEN FROM UTERINE CERVIX / Unknown 10/17/2023 5:05 PM EDT 10/17/2023 5:08 PM EDT Narrative [facility] [employer] - 10/18/2023 12:04 PM EDT Testing methodology is research instrumentation technician mediated amplification (TMA) using the Aptima Combo 2 assay from [email or web address]. A negative result does not completely rule [...] - GENERAL O RDERABLES Final Result [facility] [address] [facility] , [address] [place] [id number] * POWER MARKETER CYTOLOGY REQUEST (PAP ONLY) (08/12/2022 4:27 PM EDT) CASE REPORT Gynecologic Cytology Report Case: [id number] Authorizing Provider: Kimberli Christensen Collected: 08/12/2022 1627 DO Niya Ordering Location: [facility] Received: 08/12/2022 1627 First Screen: Faye Vargas CT Specimen: LIQUID-BASED PAP - CERVICAL/ENDOCERV ICAL, Cervix, Endocervical 08/17/2022 9:20 AM EDT [facility] PAP FINAL DIAGNOSIS Negative for intraepithelial lesion or malignancy 08/17/2022 9:20 AM EDT [facility] at 0920 EDT MICROSCOPIC DESCRIPTION Microscopic examination is performed and the findings corroborate the diagnosis. 08/17/2022 9:20 AM EDT [facility] PAP SMEAR ADEQUACY Satisfactory for evaluation 08/17/2022 9:20 AM EDT [facility] SPECIMEN LIMITATIONS Scant cells 08/17/2022 9:20 AM EDT [facility] ENDOCERVICAL T-ZONE Transformation zone present 08/17/2022 9:20 AM EDT [facility] EMBEDDED IMAGES 9:20 AM EDT [facility] PAP DISCLAIMER Note: this specimen was reprocessed due to excessive blood. The Pap Smear is a screening test that aids in the detection of cervical cancer and cancer precursors. Both false positive and false negative results can occur. The test should be used at regular intervals, and positive results should be confirmed before definitive therapy. Processed using the ThinPrep Stripping Shovel Operator Automated cytology screening device ([employer]). 08/17/2022 9:20 AM EDT [facility] Thin Prep ENDOCERVICAL STRUCTURE / Unknown 08/12/2022 4:27 PM EDT 08/12/2022 4:27 PM EDT Kimberli Christensen DO CYTOLOGY ORDERABLE S Final Result [facility] [address] [place] [address] from Last 3 Months or Most Recently Relevant to Health Maintenance Insurance [place] Advance Directives For more information, please contact: [phone] Documents on File Type Date Recorded Patient Club Lounge Attendant Expl anation [employer] ORDER 04/07/2023 4:25 [...] 11:32 AM 05/15/2021 5:43 PM Care Teams Buyer Grain Relationship Specialty Start Date End Date Milagros Reardon MD [address] [phone] PCP - General Family Medicine 08/21/23
--- NOTE | 2024-12-28 22:36 | CT_ITS ---
PROCEDURE INFORMATION: Exam: CT Temporal Bones With Contrast. Exam date and time: 12/28/2024 11:39 PM Age: 24 years old Clinical indication: Face pain and other: Cyst/mass behind right ear TECHNIQUE: Imaging protocol: Computed tomography of the temporal bones with contrast. Radiation optimization: All CT scans at this facility use at least one of these dose optimization techniques: automated exposure control; mA and/or kV adjustment per patient size (includes targeted exams where dose is matched to clinical indication); or iterative reconstruction. Contrast material: ISO 370; Contrast volume: 75 ml; Contrast route: INTRAVENOUS (IV); COMPARISON: No relevant prior studies available. FINDINGS: Right inner ear: Normal. Right ossicles and middle ear: Normal. The middle ear ossicles are intact. Right external auditory canal: Normal. Right facial nerve canal: Normal. Right jugular foramen: No jugular dehiscence. Right carotid canal: No aberrant carotid canal. Right mastoid air cells: Normal. No mastoid effusions. Left inner ear: Normal. Left ossicles and middle ear: Normal. The middle ear ossicles are intact. Left external auditory canal: Normal. Left facial nerve canal: Normal. Left jugular foramen: No jugular dehiscence. Left carotid canal: No aberrant carotid canal. Left mastoid air cells: Normal. No mastoid effusions. Soft tissues: Unremarkable. IMPRESSION: Small lesion posterior to the right ear in the subcutaneous soft tissues measuring 8.4 mm image 4/140. Ultrasound may be helpful to further delineate this finding.
--- NOTE | 2024-12-28 22:44 | HMH.EDGENADL ---
Discharge Plan Disposition Patient Disposition: Home, Self-Care Condition: Good Prescriptions Prescriptions: No Action norgestimate-ethinyl estradiol [Sprintec (28)] 0.25-0.035 mg tablet 1 tab PO DAILY Qty: 84 4RF acetaminophen 325 mg capsule 650 mg PO Q6H PRN (Reason: fever or pain) Qty: 60 0RF promethazine 25 mg tablet 25 mg PO Q6H PRN (Reason: nausea and vomiting) Qty: 20 0RF ibuprofen 600 mg tablet 600 mg PO Q8H PRN (Reason: pain) Qty: 14 0RF lamotrigine 200 mg tablet 200 mg PO DAILY atorvastatin 10 mg tablet 10 mg PO HS Patient Comments: TAKE ONE TABLET BY MOUTH AT BEDTIME sertraline 100 mg tablet 50 mg PO DAILY Patient Comments: TAKE 1 AND 1/2 TABLETS BY MOUTH EVERY DAY omeprazole 40 mg capsule,delayed release(DR/EC) 40 mg PO BID Patient Comments: TAKE ONE CAPSULE BY MOUTH TWICE DAILY BEFORE meals metformin 500 mg tablet extended release 24 hr 500 mg PO BIDWMEAL Patient Comments: TAKE ONE TABLET BY MOUTH TWICE DAILY metoprolol tartrate 25 mg tablet 12.5 mg PO BID Patient Comments: TAKE 1/2 TABLET BY MOUTH TWICE DAILY ondansetron 4 mg tablet,disintegrating 4 mg PO Q8H PRN (Reason: nausea and vomiting) 4 Days Qty: 12 0RF Referrals Follow up/Referrals: Liz Nix APRN [Primary Care Provider, Medical] - See instructions Activity Restrictions/Add. Instructions Additional Instructions/Restrictions: Follow-up with your primary care provider and they can order an ultrasound of your ear to better characterize the lesion behind your ear. You can take tylenol and ibuprofen as needed for pain control. Return to the ER for any progression of redness, severe uncontrolled pain. Clinical Impressions Clinical Impression: Ear lesion Print Language Print Language: Ukrainian Discharge ED Provider: Milagros Ely General Adult HPI General Chief complaint: PAIN Stated complaint: Jaw Pain Time Seen by Provider: 12/28/24 22:21 Mode of Arrival: Ambulatory Source of Information: EMS Description of Symptoms (Recalled from ER Triage Doc. by RN): Pt in by EMS for knot behind right ear that she reports was seen approx 15 min [employer]FORMATION SYSTEMS [employer]PER[employer]. Pt also states she is having right side jaw pain. Pt rates pain 7/10. 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 Patient states that she noticed a knot behind her right ear today and this is causing her pain. Patient does not have pain any hearing loss. Patient has not had any fevers or headaches. Although jaw pain is listed in the triage note, patient denies any jaw pain or dental pain. Patient denies any chest pain or shortness of breath. Patient does report some upper respiratory symptoms. Patient denies any abdominal pain nausea vomiting or diarrhea. Related Data Home Medications ?Medication ?Instructions ?Recorded ?Confirmed atorvastatin 10 mg tablet 10 mg PO HS 02/15/24 12/04/24 lamotrigine 200 mg tablet 200 mg PO DAILY 02/15/24 12/04/24 metformin 500 mg tablet,extended 500 mg PO BIDWMEAL 02/15/24 12/04/24 release 24 hr metoprolol tartrate 25 mg tablet 12.5 mg PO BID 02/15/24 12/04/24 omeprazole 40 mg capsule,delayed 40 mg PO BID 02/15/24 12/04/24 release sertraline 100 mg tablet 50 mg PO DAILY 02/15/24 12/04/24 Previous Rx's ?Medication ?Instructions ?Recorded acetaminophen 325 mg capsule 650 mg (2 x 325 mg) PO Q6H PRN 02/18/24 fever or pain #60 caps promethazine 25 mg tablet 25 mg PO Q6H PRN nausea and 02/18/24 vomiting #20 tabs ondansetron 4 mg disintegrating 4 mg PO Q8H PRN nausea and 03/08/24 tablet vomiting 4 days #12 tabs ibuprofen 600 mg tablet 600 mg PO Q8H PRN pain #14 tabs 05/07/24 norgestimate 0.25 mg-ethinyl 1 tab PO DAILY #84 tabs 12/19/24 estradiol 0.035 mg tablet (Sprintec (28)) Allergies Allergy/AdvReac Type Severity Reaction Status Date / Time No Known Allergies Allergy Verified 12/04/24 11:09 [facility] Disclaimer: The information contained in this section may have been updated after the patient was seen, as this information can be updated by other users. Medical History Autism Morbid obesity Prediabetes Sleep apnea GERD (gastroesophageal reflux disease) Irritable bowel syndrome PTSD (post-traumatic stress disorder) Surgical History History of wisdom tooth extraction History of esophagogastroduodenoscopy (EGD) History of colonoscopy History of adenoidectomy History of appendectomy History of laparoscopic cholecystectomy Family History Other No significant family history Social History Smoking Status: Current every day smoker alcohol intake: never substance use type: other details: Very rarely current occupational status: unemployed Travel in the last 8 weeks?: None marital status: single physical activity: none Have you lived/traveled outside [place] in past 30 days?: No Contact w/someone who lives/traveled outside [place] past 30 days?: No Exposure to someone with infectious disease in past 14 days?: No Do you have a fever (greater than 100.4 F or 38 C)?: No Have you tested positive for COVID-19?: No Exposed to someone with COVID-19 in past 14 days?: No Do you have a sore throat?: No Do you have a cough?: No Do you have any weakness?: No Do you have any diarrhea?: No Are you experiencing any unusual bleeding?: No Do you have any muscle aches/pain?: No Do you have any abdominal pain?: No Are you experiencing loss of taste or smell?: No Other Medical History Have you received the Flu Vaccine for this season: No Have you received the Pneumonia Vaccine: No ROS Obtained: Yes All systems reviewed & no additional complaints except as documented and Yes Systems reviewed as appropriate & no additional complaints except as documented Physical Exam General General appearance: alert and in no apparent distress Head Head exam: atraumatic, normocephalic and normal inspection Eye Eye exam: Present normal appearance, PERRL and EOMI; Absent scleral icterus ENT ENT exam: Present normal exam, normal external ear exam and other (small 1x1 mass behind right ear that is partially mobile, tender to the touch ) Neck Neck exam: Present normal inspection and full ROM Chest Chest inspection: Present normal inspection and symmetric chest wall rise Respiratory Respiratory exam: Present normal lung sounds bilaterally; Absent respiratory distress or wheezes Cardiovascular Cardiovascular exam: Present regular rate, normal rhythm and normal heart sounds Abdominal Exam Abdominal exam: Present soft and distention; Absent tenderness, guarding or rebound Extremities Exam Extremities exam: Present normal inspection and full ROM Back Exam Back exam: Present normal inspection and full ROM Neurological Exam Neurological exam: Present alert and oriented X3 Psychiatric Psychiatric exam: Present normal affect and normal mood Skin Skin exam: Present warm and dry Medical Decision Making Medical Records Medical records reviewed: Yes I reviewed the patient's medical records. Screening: Per USPSTF and CDC recommendations, given the prevalence of disease in our region, it is our hospital?s policy to screen for HIV and viral Hepatitis for all patients aged 18 and over and those with ongoing risk factors. [place] Inquiry Pt receiving controlled substance: No Vital Signs: 12/28/24 22:20 12/28/24 22:28 12/28/24 22:30 Temperature 98 F Temperature Source Oral Pulse Rate 74 78 Pulse Rate [Left] 89 Respiratory Rate 16 Blood Pressure Blood Pressure [Right Arm] 121/86 Blood Pressure Mean Blood Pressure Mean [Right Arm] 97 Blood Pressure Source Blood Pressure Source [Right Arm] Automatic Cuff Blood Pressure Position Blood Pressure Position [Right Arm] Sitting 02 Sat by Pulse Oximetry 98 98 99 Oxygen Delivery Method Room Air Room Air Room Air 12/28/24 22:31 12/28/24 22:31 12/28/24 22:45 Temperature Temperature Source Pulse Rate 79 75 Pulse Rate [Left] Respiratory Rate Blood Pressure 122/87 Blood Pressure [Right Arm] Blood Pressure Mean 98 Blood Pressure Mean [Right Arm] Blood Pressure Source Blood Pressure Source [Right Arm] Blood Pressure Position Blood Pressure Position [Right Arm] 02 Sat by Pulse Oximetry 96 97 Oxygen Delivery Method Room Air Room Air 12/28/24 22:45 12/28/24 23:06 12/28/24 23:06 Temperature Temperature Source Pulse Rate 67 Pulse Rate [Left] Respiratory Rate Blood Pressure 129/84 137/83 Blood Pressure [Right Arm] Blood Pressure Mean 94 100 Blood Pressure Mean [Right Arm] Blood Pressure Source Blood Pressure Source [Right Arm] Blood Pressure Position Blood Pressure Position [Right Arm] 02 Sat by Pulse Oximetry 98 Oxygen Delivery Method Room Air 12/28/24 23:15 12/28/24 23:16 12/28/24 23:16 Temperature Temperature Source Pulse Rate 69 67 Pulse Rate [Left] Respiratory Rate Blood Pressure 123/87 Blood Pressure [Right Arm] Blood Pressure Mean 95 Blood Pressure Mean [Right Arm] Blood Pressure Source Blood Pressure Source [Right Arm] Blood Pressure Position Blood Pressure Position [Right Arm] 02 Sat by Pulse Oximetry 97 98 Oxygen Delivery Method Room Air Room Air 12/28/24 23:30 12/28/24 23:31 12/28/24 23:31 Temperature Temperature Source Pulse Rate 69 69 Pulse Rate [Left] Respiratory Rate Blood Pressure 118/77 Blood Pressure [Right Arm] Blood Pressure Mean 85 Blood Pressure Mean [Right Arm] Blood Pressure Source Blood Pressure Source [Right Arm] Blood Pressure Position Blood Pressure Position [Right Arm] 02 Sat by Pulse Oximetry 97 97 Oxygen Delivery Method Room Air Room Air 12/28/24 23:46 12/29/24 00:00 12/29/24 00:15 Temperature Temperature Source Pulse Rate 68 71 Pulse Rate [Left] Respiratory Rate Blood Pressure Blood Pressure [Right Arm] Blood Pressure Mean Blood Pressure Mean [Right Arm] Blood Pressure Source Blood Pressure Source [Right Arm] Blood Pressure Position Blood Pressure Position [Right Arm] 02 Sat by Pulse Oximetry 92 L 97 96 Oxygen Delivery Method Room Air Room Air Room Air 12/29/24 00:30 12/29/24 00:40 Temperature 98 F Temperature Source Oral Pulse Rate 70 64 Pulse Rate [Left] Respiratory Rate 16 Blood Pressure 118/77 Blood Pressure [Right Arm] Blood Pressure Mean Blood Pressure Mean [Right Arm] Blood Pressure Source Automatic Cuff Blood Pressure Source [Right Arm] Blood Pressure Position Supine Blood Pressure Position [Right Arm] 02 Sat by Pulse Oximetry 95 Oxygen Delivery Method Room Air Room Air Lab Data Lab results reviewed: Yes I reviewed the patient's lab results. Lab Results 12/28/24 23:06: WBC 11.6 H, RBC 4.16 L, Hgb 11.6 L, Hct 35.0 L, MCV 84.1, MCH 27.9, MCHC 33.1, RDW 14.6, Plt Count 386, MPV 9.9, Neut % (Auto) 54.9, Lymph % (Auto) 33.6, [place] % (Auto) 9.0, Eos % (Auto) 1.6, Baso % (Auto) 0.6, Neut # (Auto) 6.4, Lymph # (Auto) 3.9, [place] # (Auto) 1.0, Eos # (Auto) 0.2, Baso # (Auto) 0.1, Sodium 134 L, Potassium 4.2, Chloride 102, Carbon Dioxide 24, Anion Gap 12.2, BUN 7, Creatinine 0.70, Estimated Creat Clear 94, Estimated GFR 103, Est GFR ( Amer) 124, Glucose 102 H, Calcium 9.6, Total Bilirubin 0.4, AST 25, ALT 14, Alkaline Phosphatase 65, Total Protein 7.9, Albumin 4.7, Globulin 3.2, Albumin/Globulin Ratio 1.5, Serum HCG, Qual Negative 12/28/24 23:06 12/28/24 23:06 Orders (Tests/Meds): ED MEDICATIONS Discontinued Medications Generic Name Dose Route Start Last Admin Trade Name Freq PRN Reason Stop Dose Admin Iopamidol 75 ml 12/28/24 23:40 12/28/24 23:41 Iopamidol-370 (76%);100ml Bottle IV 12/28/24 23:41 75 ml ONCE ONE Administration Ondansetron HCl 4 mg 12/28/24 22:37 12/28/24 22:54 Ondansetron 4mg Odt SL 12/28/24 22:38 4 mg ONCE ONE Administration Sodium Chloride 10 ml 12/28/24 23:40 12/28/24 23:41 Sodium Chloride 0.9% 10ml Syr (Rad Only) IV 12/28/24 23:41 10 ml ONCE ONE Administration ORDERS Category Date Time Status CT Temporal bone With Stat Cat Scan 12/28/24 22:36 Completed CBC w/Auto Diff [Complete Blood Count Auto Diff] Stat Lab 12/28/24 23:06 Completed CMP [Comprehensive Metabolic Panel] Stat Lab 12/28/24 23:06 Completed HCG Qualitative, Serum Stat Lab 12/28/24 23:06 Completed Medical Decision Narrative: Patient is an otherwise healthy 24-year-old female who presented to the emergency department with a knot and pain behind her right ear. On arrival, patient was hemodynamically stable with unremarkable vital signs. Differential includes but not limited to: Mastoiditis, cyst, lipoma, mass, amongst others. Patient's labs were reviewed and interpreted by myself: CBC showed mild leukocytosis of 11, hemoglobin was stable. CMP was unremarkable. test was negative. CT scan was obtained that did show small lesion posterior to the right ear. CT recommended possible ultrasound. No signs of mastoiditis or other acute infection, did not feel that patient warranted antibiotics at this time. I recommended that patient follow-up with her primary care provider for her ultrasound and patient was given return precautions. Patient was otherwise discharged home in stable condition. Critical Care Critical Care Time Critical Care Time: No
[2024-12-28] MEDS: ONDANSETRON 4MG ODT 4 MG SL (22:54)
[2024-12-28 23:15] LABS: Hematocrit 35.0 % (37.0-47.0); Hemoglobin 11.6 g/dL (12.2-16.2); Immature Granulocytes % 0.3 %; Mean Corpuscular HGB Conc 33.1 g/dL (31.8-35.4); Mean Corpuscular Hemoglobin 27.9 pg (27.0-31.2); Mean Corpuscular Volume 84.1 fl (81-99); Nucleated Red Blood Cells % 0 %; Platelet Count 386 K/mm3 (142-424); Red Blood Count 4.16 M/mm3 (4.20-5.40); Red Cell Distribution Width-SD 44.8 fL; White Blood Count 11.6 K/mm3 (4.8-10.8)
[2024-12-28 23:27] LABS: Alanine Aminotransferase 14 U/L (12-78); Albumin Level 4.7 g/dl (3.5-5.0); Albumin/Globulin Ratio 1.5 (1.1-1.8); Alkaline Phosphatase 65 U/L (38-126); Anion Gap 12.2 mEq/L (5-15); Aspartate Amino Transferase 25 U/L (14-36); Bilirubin,Total 0.4 mg/dl (0.2-1.3); Blood Urea Nitrogen 7 mg/dl (7-17); Calcium 9.6 mg/dl (8.4-10.2); Carbon Dioxide 24 mmol/L (22.0-30.0); Chloride 102 mmol/L (98-107); Creatinine Clearance Estimated 94 mL/min (50-200); Creatinine,Serum 0.70 mg/dl (0.52-1.04); Estimated Glomerular Filt Rate 103 ml/min (>60); GFR (African American) 124 ML/MIN (>60); Globulin 3.2 g/dL (1.3-3.2); Glucose 102 mg/dl (74-100); HCG Qualitative, Serum Negative (Negative); Potassium 4.2 mmoL/L (3.5-5.1); Sodium 134 mmol/L (136-145); Total Protein,Serum 7.9 g/dl (6.3-8.2)
[2024-12-28] MEDS: SODIUM CHLORIDE 0.9% 10ML SYR (RAD ONLY) 10 ML IV (23:41)
[2024-12-28] MEDS: IOPAMIDOL-370 (76%);100ML BOTTLE 75 ML IV (23:41)
[2024-12-29] VITALS: PULSE 68; O2SAT 97
[2024-12-29 00:15] VITALS: PULSE 71; O2SAT 96
[2024-12-29 00:30] VITALS: PULSE 70; O2SAT 95
[2024-12-29 00:40] VITALS: BP 118/77; PULSE 64; RESP 16; TEMP 36.6; O2SAT 95
== END 2024-12-29 01:14 | disposition home or self-care (01) ==
PROVIDERS: Emergency Provider Student in an Organized Health Care Education/Training Program; PCP Nurse Practitioner Family
DX: R68.84 Jaw pain (principal); H93.90 Unspecified disorder of ear, unspecified ear; G47.30 Sleep apnea, unspecified; F43.10 Post-traumatic stress disorder, unspecified
CPT/HCPCS: 70481; 80053; 84703; 85025; 99285; Q0162; Q9967

== ENCOUNTER 2025-01-07 20:08 | Emergency (ER) | payer MEDICARE, MEDICAID, SELFPAY ==
[2025-01-07 20:15] VITALS: BP 141/88; PULSE 98; RESP 16; TEMP 36.8; O2SAT 97; BMI 42.9
[2025-01-07 20:36] LABS: Coronavirus 19, PCR Not Detected (NotDetected); Influenza A, PCR Not Detected (NotDetected); Influenza B, PCR Not Detected (NotDetected)
[2025-01-07 20:43] LABS: Strep Scrn Group A (Rapid) Negative (Negative)
--- NOTE | 2025-01-07 21:37 | HMH.EDGENADL ---
Discharge Plan Disposition Patient Disposition: Home, Self-Care Condition: Good Prescriptions Prescriptions: New amoxicillin-pot clavulanate 875-125 mg tablet 1 tab PO Q12H Qty: 20 0RF No Action norgestimate-ethinyl estradiol [Sprintec (28)] 0.25-0.035 mg tablet 1 tab PO DAILY Qty: 84 4RF acetaminophen 325 mg capsule 650 mg PO Q6H PRN (Reason: fever or pain) Qty: 60 0RF promethazine 25 mg tablet 25 mg PO Q6H PRN (Reason: nausea and vomiting) Qty: 20 0RF ibuprofen 600 mg tablet 600 mg PO Q8H PRN (Reason: pain) Qty: 14 0RF lamotrigine 200 mg tablet 200 mg PO DAILY atorvastatin 10 mg tablet 10 mg PO HS Patient Comments: TAKE ONE TABLET BY MOUTH AT BEDTIME sertraline 100 mg tablet 50 mg PO DAILY Patient Comments: TAKE 1 AND 1/2 TABLETS BY MOUTH EVERY DAY omeprazole 40 mg capsule,delayed release(DR/EC) 40 mg PO BID Patient Comments: TAKE ONE CAPSULE BY MOUTH TWICE DAILY BEFORE meals metformin 500 mg tablet extended release 24 hr 500 mg PO BIDWMEAL Patient Comments: TAKE ONE TABLET BY MOUTH TWICE DAILY metoprolol tartrate 25 mg tablet 12.5 mg PO BID Patient Comments: TAKE 1/2 TABLET BY MOUTH TWICE DAILY ondansetron 4 mg tablet,disintegrating 4 mg PO Q8H PRN (Reason: nausea and vomiting) 4 Days Qty: 12 0RF Referrals Follow up/Referrals: Liz Nix APRN [Primary Care Provider, Medical] - See instructions Print Language Print Language: Hungarian Discharge ED Provider: Jose L Oviedo General Adult HPI <ABDOUL Ramirez - Last Filed: 01/07/25 22:00> General Chief complaint: Ear Stated complaint: ear pain Time Seen by Provider: 01/07/25 20:10 Mode of Arrival: EMS Source of Information: Patient and EMS Description of Symptoms (Recalled from ER Triage Doc. by RN): Pt presents to ED for bilateral ear pain and sore throat. Pt states this has been going on for approx 1 week. VSS History of Present Illness HPI narrative: Patient presents complaining of sore throat, cough, congestion. She reports that she was here last week and diagnosed with a lesion behind her right ear. She has not been able to see her PCP to have an ultrasound done as a this date. She did have some nausea and vomiting this morning. Denies any fevers. MD complaint: Sore throat, ear pain Onset (ago): day(s) Severity: moderate Consistency: constant Relieving factors: none Exacerbating factors: none Associated symptoms: nausea/vomiting; negative fever/chills Treatments prior to arrival: none Related Data Home Medications ?Medication ?Instructions ?Recorded ?Confirmed atorvastatin 10 mg tablet 10 mg PO HS 02/15/24 12/04/24 lamotrigine 200 mg tablet 200 mg PO DAILY 02/15/24 12/04/24 metformin 500 mg tablet,extended 500 mg PO BIDWMEAL 02/15/24 12/04/24 release 24 hr metoprolol tartrate 25 mg tablet 12.5 mg PO BID 02/15/24 12/04/24 omeprazole 40 mg capsule,delayed 40 mg PO BID 02/15/24 12/04/24 release sertraline 100 mg tablet 50 mg PO DAILY 02/15/24 12/04/24 Previous Rx's ?Medication ?Instructions ?Recorded acetaminophen 325 mg capsule 650 mg (2 x 325 mg) PO Q6H PRN 02/18/24 fever or pain #60 caps promethazine 25 mg tablet 25 mg PO Q6H PRN nausea and 02/18/24 vomiting #20 tabs ondansetron 4 mg disintegrating 4 mg PO Q8H PRN nausea and 03/08/24 tablet vomiting 4 days #12 tabs ibuprofen 600 mg tablet 600 mg PO Q8H PRN pain #14 tabs 05/07/24 norgestimate 0.25 mg-ethinyl 1 tab PO DAILY #84 tabs 12/19/24 estradiol 0.035 mg tablet (Sprintec (28)) amoxicillin 875 mg-potassium 1 tab PO Q12H #20 tabs 01/07/25 clavulanate 125 mg tablet Allergies Allergy/AdvReac Type Severity Reaction Status Date / Time No Known Allergies Allergy Verified 12/04/24 11:09 [facility] <ABDOUL Ramirez - Last Filed: 01/07/25 22:00> PFS Disclaimer: The information contained in this section may have been updated after the patient was seen, as this information can be updated by other users. Medical History Autism Morbid obesity Prediabetes Sleep apnea GERD (gastroesophageal reflux disease) Irritable bowel syndrome PTSD (post-traumatic stress disorder) Surgical History History of wisdom tooth extraction History of esophagogastroduodenoscopy (EGD) History of colonoscopy History of adenoidectomy History of appendectomy History of laparoscopic cholecystectomy Family History Other No significant family history Social History Smoking Status: Current every day smoker alcohol intake: never substance use type: other details: Very rarely current occupational status: unemployed Travel in the last 8 weeks?: None marital status: single physical activity: none Have you lived/traveled outside [place] in past 30 days?: No Contact w/someone who lives/traveled outside US past 30 days?: No Exposure to someone with infectious disease in past 14 days?: No Do you have a fever (greater than 100.4 F or 38 C)?: No Have you tested positive for COVID-19?: No Exposed to someone with COVID-19 in past 14 days?: No Do you have a sore throat?: No Do you have a cough?: No Do you have any weakness?: No Do you have any diarrhea?: No Are you experiencing any unusual bleeding?: No Do you have any muscle aches/pain?: No Do you have any abdominal pain?: No Are you experiencing loss of taste or smell?: No Other Medical History Have you received the Flu Vaccine for this season: No Have you received the Pneumonia Vaccine: No <ABDOUL Ramirez - Last Filed: 01/07/25 22:00> ROS Obtained: Yes Systems reviewed as appropriate & no additional complaints except as documented Physical Exam <ABDOUL Ramirez - Last Filed: 01/07/25 22:00> General General appearance: alert and in no apparent distress Head Head exam: atraumatic and normocephalic Eye Eye exam: Present normal appearance and EOMI ENT ENT exam: Present mucous membranes moist and other (left TM has bulging, fluid and slight erythema. No evidence of STANDPIPE TENDER, slight bilateral tonsillar enlargement and erythema. No mastoid erythema or edema. ) Chest Chest inspection: Present symmetric chest wall rise Respiratory Respiratory exam: Present normal lung sounds bilaterally; Absent wheezes or stridor Cardiovascular Cardiovascular exam: Present regular rate and normal rhythm; Absent systolic murmur Extremities Exam Extremities exam: Present full ROM Neurological Exam Neurological exam: Present alert and oriented X3 Psychiatric Psychiatric exam: Present normal affect and normal mood Skin Skin exam: Present warm, dry and intact Medical Decision Making <ABDOUL Ramirez - Last Filed: 01/07/25 22:00> Medical Records Screening: Per USPSTF and CDC recommendations, given the prevalence of disease in our region, it is our hospital?s policy to screen for HIV and viral Hepatitis for all patients aged 18 and over and those with ongoing risk factors. [place] Inquiry Pt receiving controlled substance: No Vital Signs: 01/07/25 20:15 01/07/25 21:49 Temperature 98.3 F 98.3 F Temperature Source Oral Pulse Rate 89 Pulse Rate [Left] 98 H Respiratory Rate 16 16 Blood Pressure 136/81 Blood Pressure [Right Arm] 141/88 H Blood Pressure Mean [Right Arm] 105 02 Sat by Pulse Oximetry 97 Oxygen Delivery Method Room Air Room Air Lab Data Lab Results 01/07/25 20:18: SARS-CoV-2 (PCR) Not detected, Influenza A Untype (PCR) Not detected, Influenza Type B (PCR) Not detected, Group A Strep Rapid Negative Orders (Tests/Meds): ED MEDICATIONS Discontinued Medications Generic Name Dose Route Start Last Admin Trade Name Freq PRN Reason Stop Dose Admin Amoxicillin/Clavulanate Potassium 1 each 01/07/25 21:48 01/07/25 22:03 Amoxicillin/Clavulanate Potassium 875/125mg Tablet PO 01/07/25 21:49 1 each ONCE STA Administration ORDERS Category Date Time Status Rapid PCR Covid and Flu A/B Stat Lab 01/07/25 20:18 Completed Strep Scrn Group A (Rapid) Stat Lab 01/07/25 20:18 Completed Strep Screen Confirmation Stat Micro 01/07/25 20:18 Received Medical Decision Narrative: In summary patient is a 24-year-old who presents the emergency department for evaluation of ear and throat pain. Patient is hemodynamically upon arrival, afebrile. Otitis media on exam. Differential diagnosis includes viral illness, strep, otitis media. Reviewed most recent CT scan which showed a small lesion behind the right ear. upon repeat evaluation patient is resting,. Given this patient is appropriate for discharge home at this time with prescription for Augmentin. <Jose L Oviedo DO - Last Filed: 01/07/25 23:09> Medical Records Medical records reviewed: Yes I reviewed the patient's medical records. Vital Signs: 01/07/25 20:15 01/07/25 21:49 Temperature 98.3 F 98.3 F Temperature Source Oral Pulse Rate 89 Pulse Rate [Left] 98 H Respiratory Rate 16 16 Blood Pressure 136/81 Blood Pressure [Right Arm] 141/88 H Blood Pressure Mean [Right Arm] 105 02 Sat by Pulse Oximetry 97 Oxygen Delivery Method Room Air Room Air Lab Data Lab Results 01/07/25 20:18: SARS-CoV-2 (PCR) Not detected, Influenza A Untype (PCR) Not detected, Influenza Type B (PCR) Not detected, Group A Strep Rapid Negative Orders (Tests/Meds): ED MEDICATIONS Discontinued Medications Generic Name Dose Route Start Last Admin Trade Name Freq PRN Reason Stop Dose Admin Amoxicillin/Clavulanate Potassium 1 each 01/07/25 21:48 01/07/25 22:03 Amoxicillin/Clavulanate Potassium 875/125mg Tablet PO 01/07/25 21:49 1 each ONCE STA Administration ORDERS Category Date Time Status Rapid PCR Covid and Flu A/B Stat Lab 01/07/25 20:18 Completed Strep Scrn Group A (Rapid) Stat Lab 01/07/25 20:18 Completed Strep Screen Confirmation Stat Micro 01/07/25 20:18 Received Medical Decision Narrative: In summary patient is a 24-year-old who presents the emergency department for evaluation of ear and throat pain. Patient is hemodynamically upon arrival, afebrile. Otitis media on exam. Differential diagnosis includes viral illness, strep, otitis media. Reviewed most recent CT scan which showed a small lesion behind the right ear. upon repeat evaluation patient is resting,. Given this patient is appropriate for discharge home at this time with prescription for Augmentin. I was consulted by the [facility], and we discussed the complexity of problems being addressed. I approved the treatment and management plan for this patient's care in the emergency department, thus performing a substantive portion of the medical decision making. Jose L Oviedo DO This Dr. Oviedo. I independently evaluated this patient as well. Patient was seen here in the emergency department today for a knot behind the right ear. She ultimately underwent a CT scan of the temporal bone and had no evidence of mastoiditis or other acute infections. There was evidence of a small lesion posterior to the right ear that be better evaluated with ultrasound. She was recommended to follow-up with her primary care physician. She states that since that time she has now developed pain in the left ear as well as a sensation of lymphadenopathy underneath the mandible. On my evaluation of the patient she has acute left-sided otitis media with erythema of the tympanic membrane with bulging, and a purulent rim along the inferior aspect of the tympanic membrane. I did not feel that this patient necessitated any formal imaging or hematologic labs. We treated the patient with amoxicillin while here in the emergency department and will send amoxicillin to the pharmacy for her. She acknowledged understanding of plan and return precautions. Critical Care <ABDOUL Ramirez - Last Filed: 01/07/25 22:00> Critical Care Time Critical Care Time: No
[2025-01-07 21:49] VITALS: BP 136/81; PULSE 89; RESP 16; TEMP 36.8; O2SAT 97
--- NOTE | 2025-01-07 22:02 | PC.NURSE ---
PT is appropriate for d/c, does not have a ride home r/t being a resident at [facility]. PT is in contact with mother attempting to find a ride.
[2025-01-07] MEDS: AMOXICILLIN/CLAVULANATE POTASSIUM 875/125MG TABLET 1 EACH PO (22:03)
--- NOTE | 2025-01-07 23:38 | PC.NURSE ---
This RN called after hours guardianship to try and get clarification on the d/c of pt. Pt is crying and wanting to go home. After hours guardianship states that [facility] is responsible for transport. This RN called [facility] and spoke to Dinesh (employee). Dinesh states he does not own a car or have a commercial front load driver's license and is unable to transport patient. Dinesh gave me the phone number to call Imelda Su (Director). I called Imelda and she stated she was refusing to come and merchandise pickup/receiving associate the patient bc she lives 45 minutes away. I stated to her that after hours guardianship says it is [facility] responsibility to get the pt back to the residence. Imelda stated she had no employees that could drive and therefore she would not be providing transportation. This RN called after hours guardianship again (as requested) and let them know that Imelda Su refused to merchandise pickup/receiving associate pt. After hours guardianship (employee name Roro Whitney) put me on hold and called a brick chimney supervisor. Roro states the brick chimney supervisor agreed that [facility] is responsible for transport but that no one at the facility had a car. [facility] offered a taxi voucher however I let her know that we do not have taxi service here. [facility] states we will have to keep the pt here until morning when [facility] has transportation. [facility] and [employer] have also been informed.
--- NOTE | 2025-01-07 23:44 | PC.NURSE ---
Called dispatch to see if they could have an officer call out here to speak about a pt, spoke with officer Noemy to see if he could transfer this pt back to [facility] he stated that [facility] should provide transportation for their residents. he also stated he would talk to somebody to see what he could do.
--- NOTE | 2025-01-08 00:10 | PC.NURSE ---
Officer Peak from [employer] picked pt up for transport. Officer Peak stated he will be filing a complaint with [employer].
== END 2025-01-08 | disposition home or self-care (01) ==
PROVIDERS: Emergency Provider Student in an Organized Health Care Education/Training Program; PCP Nurse Practitioner Family
DX: H66.92 Otitis media, unspecified, left ear (principal)
CPT/HCPCS: 87430; 87636; 99283; 99284